=== PATIENT | female | born 1960 | race Caucasian/White ===

== ENCOUNTER 2017-06-21 21:32 | Emergency (ER) | payer MEDICARE, OTHER ==
[2017-06-21 21:55] VITALS: RESP 18; TEMP 97.4
--- NOTE | 2017-06-21 23:06 | XR ---
EXAM: XR Chest, 2 Views CLINICAL HISTORY: Reason: Pain TECHNIQUE: Frontal and lateral views of the chest. COMPARISON: No relevant prior studies available. FINDINGS: Lungs: Unremarkable. No consolidation. Pleural space: Unremarkable. No pneumothorax. Heart: Unremarkable. No cardiomegaly. Mediastinum: Unremarkable. Bones/joints: Mild degenerative disc changes. IMPRESSION: No acute radiographic findings.
[2017-06-21 23:39] VITALS: BP 136/77; PULSE 72
--- NOTE | 2017-06-21 23:48 | ED ---
ENT HPI - General Chief complaint: ENT Stated complaint: Coughing up blood Time Seen by Provider: 06/21/17 22:36 Source: patient, RN notes reviewed, old records reviewed Mode of arrival: ambulatory Limitations: no limitations - History of Present Illness Initial comments: Keiko is a 56-year-old female that presents with a chief complaint of three days when she wakes up she has one episode of coughing up a bloody tinged sputum. She reports the only kind of this occurs is directly after she wakes up. She reports that she was having an episode of crying prior to arrival, I noticed that she had a bloody nose.This has subsided at this time. Patient states that she's had no other history a bloody nose is, headaches, vision changes. Reports noOther episodes of coughing. Denies any shortness of breath. She was a smoker many years ago but has quit. - Related Data Home Medications Medication Instructions Recorded Confirmed Atorvastatin [Lipitor] 10 mg PO HS 09/18/15 09/18/15 Levothyroxine Sodium [Synthroid] 25 mcg PO DAILY 09/18/15 09/18/15 Lisinopril [Zestril] 5 mg PO DAILY 09/18/15 09/18/15 Meclizine [Antivert] 12.5 mg PO DAILY PRN 09/18/15 09/18/15 Propranolol [Inderal] 10 mg PO BID 09/18/15 09/18/15 clonazePAM [KlonoPIN] 1 mg PO HS 09/22/15 09/22/15 Previous Rx's Medication Instructions Recorded Ciprofloxacin HCl [Cipro] 500 mg PO BID #7 tab 09/22/15 Topiramate [Topamax] 25 mg PO BID #60 tab 09/22/15 buPROPion XL [Wellbutrin XL] 150 mg PO DAILY #30 tab.er.24h 09/22/15 Sodium Chloride [Saline Mist] 1 spray EA NOSTRIL DAILY #1 bottle 06/22/17 Allergies Allergy/AdvReac Type Severity Reaction Status Date / Time No Known Allergies Allergy Verified 09/19/15 16:28 Review of Systems ROS Statement: Those systems with pertinent positive or pertinent negative responses have been documented in the HPI. ROS Other: All systems not noted in ROS Statement are negative. Past Medical History Past Medical History: Asthma Additional Past Medical History / Comment(s): History of wearing a Holter monitor 5-6 years ago for racing heart, Fibromyalgia, Rheumatoid Arthritis History of Any Multi-Drug Resistant Organisms: None Reported Past Surgical History: No Surgical Hx Reported Past Anesthesia/Blood Transfusion Reactions: No Reported Reaction Past Psychological History: Anxiety, Bipolar, Depression Smoking Status: Never smoker Past Alcohol Use History: None Reported Past Drug Use History: None Reported - Past Family History Father Family Medical History: Coronary Artery Disease (CAD) Mother Additional Family Medical History / Comment(s): Mother at the age of 2929 years old from alcholism. General Exam - General Exam Comments Initial Comments: Well appearing alert and oriented 56-year-old female. No distress. Limitations: no limitations General appearance: alert, in no apparent distress Head exam: Present: atraumatic, normocephalic, normal inspection Eye exam: Present: normal appearance, PERRL, EOMI. Absent: scleral icterus, conjunctival injection, periorbital swelling ENT exam: Present: normal exam, mucous membranes moist, other (erythematous friable nasal turbinates. ) Neck exam: Present: normal inspection. Absent: tenderness, meningismus, lymphadenopathy Respiratory exam: Present: normal lung sounds bilaterally. Absent: respiratory distress, wheezes, rales, rhonchi, stridor Cardiovascular Exam: Present: regular rate, normal rhythm, normal heart sounds. Absent: systolic murmur, diastolic murmur, rubs, gallop, clicks GI/Abdominal exam: Present: soft, normal bowel sounds. Absent: distended, tenderness, guarding, rebound, rigid Extremities exam: Present: normal inspection, full ROM, normal capillary refill. Absent: tenderness, pedal edema, joint swelling, calf tenderness Back exam: Present: normal inspection Neurological exam: Present: alert, oriented X3, CN II-XII intact Psychiatric exam: Present: normal affect, normal mood Skin exam: Present: warm, dry, intact, normal color. Absent: rash Course Vital Signs 06/21/17 06/21/17 21:52 23:38 Temperature 97.4 F L Pulse Rate 82 72 Respiratory 18 18 Rate Blood Pressure 144/81 136/77 O2 Sat by Pulse 98 96 Oximetry Medical Decision Making - Medical Decision Making Patient is a 56-year-old female that arrives with a few days of one episode of blatant sputum when she coughs. She has no for their coughing episodes. She does have your a feminist nasal turbinates. They appear very friable and dry. Patient was offered a chest x-ray to rule out any plural valleys. The check she was rude and negative. I discuss this with Dr. Almonte. He recommended a skullActually draw any pineal abnormalities. The school x-ray shows evidence of a.m. normal area in the right frontal region. Patient has no tenderness there. Discussed these findings with her and that she could follow up with her primary care provider. I'm not concerned about this at this time. I think it is an incidental finding. Patient informed that her bloody nose is likely related to dry nasal mucosa. DiscussedFollow up with primary care provider. Discussed using a humidifier. Discussed if she said she may see in your nose and throat specialist. - Radiology Data Radiology results: report reviewed Just ask her to be a negative for any acute process. Spell x-ray shows evidence of an debbi matter where the right frontal lobe. No tenderness is noted there. Disposition Clinical Impression: Nasal dryness Disposition: HOME SELF-CARE Condition: Good Instructions: Sinusitis (ED) Additional Instructions: Keep air humidified in home. you should take the nasal spray and use it as directed. Follow-up with primary care provider. Return to emergency department if any alarming signs symptoms occur. Prescriptions: Sodium Chloride [Saline Mist] 1 spray EA NOSTRIL DAILY #1 bottle Referrals: Lucero Saenz MD [Primary Care Provider] - 1-2 days Time of Disposition: 00:23
--- NOTE | 2017-06-22 00:04 | XR ---
EXAM: XR Skull, 1, 2 or 3 Views CLINICAL HISTORY: Reason: Pain TECHNIQUE: Frontal and/or lateral views of the skull. COMPARISON: No relevant prior studies available. FINDINGS: Bones/joints: No acute fracture. Small right frontal bone lucency, possibly an arachnoid granulation though nonspecific. Sinuses: Unremarkable. No air-fluid levels. Soft tissues: Unremarkable. No radiopaque foreign body. IMPRESSION: No visualized fracture. Subcentimeter right frontal bone lucency, nonspecific. Query arachnoid granulation. Correlate for any point tenderness or history of malignancy.
--- NOTE | 2017-06-24 02:06 | CDI ---
Documentation Clarification OP Dear ALVARO Holt: Please do addendum to ED report for HPI , Physical exam and MDM. Thank you, Akila Francisco Liver Trimmer If you have any question, Please contact cable installation manager at [phone] [facility]
== END 2017-06-22 00:32 | disposition home or self-care (01) ==
LOC: EC 21:32
DX: J34.89 Other specified disorders of nose and nasal sinuses (principal); Z79.899 Other long term (current) drug therapy
CPT/HCPCS: 70260; 71020; 99284

== ENCOUNTER → 2017-08-29 | Outpatient (CLI) | payer MEDICARE, OTHER ==
--- NOTE | 2017-08-29 14:40 | XR ---
EXAMINATION TYPE: XR calcaneus 2V LT DATE OF EXAM: 08/29/2017 COMPARISON: NONE HISTORY: Pain in left foot TECHNIQUE: Two-view left calcaneus FINDINGS: Achilles tendon and plantar calcaneal heel spurs are present. No acute fractures are eviden t. Boehler's angle is preserved. Soft tissues appear unremarkable. IMPRESSION: 1. Calcaneal heel spurs left calcaneus
--- NOTE | 2017-08-29 14:43 | XR ---
EXAMINATION TYPE: XR foot complete LT DATE OF EXAM: 08/29/2017 COMPARISON: NONE HISTORY: Left foot pain TECHNIQUE: Three-view left foot FINDINGS: No acute fractures. Joint spaces are preserved. Plantar and Achilles tendon calcaneal heel spurs are present. Plantar arch is preserved. IMPRESSION: 1. No acute osseous abnormality. Follow-up exam can be performed 7-10 days from acute trauma for con tinued pain.
== END | disposition home or self-care (01) ==
LOC: RADXRMAIN 14:12
PROVIDERS: ATTEND Nurse Practitioner
DX: M77.32 Calcaneal spur, left foot (principal)

== ENCOUNTER 2017-12-17 12:19 | Emergency (ER) | payer MEDICARE, OTHER ==
[2017-12-17] MEDS ORDERED: methylPREDNISolone SOD SUCCI 125 MG/2 ML VIAL IV STA (12:31)
[2017-12-17] MEDS ORDERED: FAMOTIDINE 20 MG/2 ML VIAL IV STA (12:31)
[2017-12-17] MEDS ORDERED: diphenhydrAMINE 50 MG/ML 1 ML VIAL IVP STA (12:31)
--- NOTE | 2017-12-17 12:34 | ED ---
General Adult HPI - General Chief complaint: Allergic Reaction Stated complaint: Allergic Reaction Time Seen by Provider: 12/17/17 12:26 Source: patient, EMS, RN notes reviewed Mode of arrival: EMS Limitations: no limitations - History of Present Illness Initial comments: Patient is a 57-year-old female presented to the emergency room today by EMS, the chief complaint of ALLERGIC reaction. Patient does admit that she took niacin for the first time today. She admits that approximately 45 minutes later began feeling very flushed and hot to her face and into her arms. She states she did call 911. EMS arrived started an IV and gave 25 mg Benadryl IV. Patient states that she is feeling much better at this time. She states that still feeling a little flushed in the face. Denies any shortness of breath or difficulty swallowing. She denies any other complaints. Patient denies any recent shortness of breath, chest pain, back pain, abdominal pain, nausea or vomiting, numbness or tingling, dysuria or hematuria, constipation or diarrhea, headaches or visual changes, or any other complaints. - Related Data Home Medications Medication Instructions Recorded Confirmed Levothyroxine Sodium [Synthroid] 25 mcg PO DAILY 09/18/15 12/17/17 Propranolol [Inderal] 10 mg PO BID 09/18/15 12/17/17 Escitalopram [Lexapro] 5 mg PO DAILY 12/17/17 12/17/17 Simvastatin [Zocor] 10 mg PO HS 12/17/17 12/17/17 clonazePAM [KlonoPIN] 1 mg PO BID@0900,1300 12/17/17 12/17/17 Previous Rx's Medication Instructions Recorded buPROPion XL [Wellbutrin XL] 150 mg PO DAILY #30 tab.er.24h 09/22/15 diphenhydrAMINE [Benadryl] 1 - 2 tab PO Q6HR PRN #30 capsule 12/17/17 predniSONE 60 mg PO DAILY 5 Days tab 12/17/17 Allergies Allergy/AdvReac Type Severity Reaction Status Date / Time niacin Allergy Swelling Verified 12/17/17 12:51 Review of Systems ROS Statement: Those systems with pertinent positive or pertinent negative responses have been documented in the HPI. ROS Other: All systems not noted in ROS Statement are negative. Past Medical History Past Medical History: Asthma Additional Past Medical History / Comment(s): History of wearing a Holter monitor 5-6 years ago for racing heart, Fibromyalgia, Rheumatoid Arthritis History of Any Multi-Drug Resistant Organisms: None Reported Past Surgical History: No Surgical Hx Reported Past Anesthesia/Blood Transfusion Reactions: No Reported Reaction Past Psychological History: Anxiety, Bipolar, Depression Smoking Status: Never smoker Past Alcohol Use History: None Reported Past Drug Use History: None Reported - Past Family History Father Family Medical History: Coronary Artery Disease (CAD) Mother Additional Family Medical History / Comment(s): Mother at the age of 2929 years old from alcholism. General Exam - General Exam Comments Initial Comments: General: The patient is awake and alert, in no distress, and does not appear acutely ill. Eye: Pupils are equal, round and reactive to light, extra-ocular movements are intact. No nystagmus. There is normal conjunctiva bilaterally. No signs of icterus. Ears, nose, mouth and throat: There are moist mucous membranes and no oral lesions. Neck: The neck is supple, there is no tenderness or JVD. Cardiovascular: There is a regular rate and rhythm. No murmur, rub or gallop is appreciated. Respiratory: Lungs are clear to auscultation, respirations are non-labored, breath sounds are equal. No wheezes, stridor, rales, or rhonchi. Musculoskeletal: Normal ROM, no tenderness. Strength 5/5. Sensation intact. Pulses equal bilaterally 2+. Neurological: A&O x 3. CN II-XII intact, There are no obvious motor or sensory deficits. Coordination appears grossly intact. Speech is normal. Skin: Diffuse red raised rash to both anterior posterior trunk and upper extremities. Areas do mariluz. Psychiatric: Cooperative, appropriate mood & affect, normal judgment. Limitations: no limitations Course Vital Signs 12/17/17 12/17/17 12:22 14:06 Temperature 97.9 F Pulse Rate 77 65 Respiratory 18 18 Rate Blood Pressure 138/62 106/67 O2 Sat by Pulse 96 98 Oximetry Medical Decision Making - Medical Decision Making Patient reexamined at this time shows no signs of stress persist feeling much better at this time. No rash. No feeling of burning sensation. Patient states feels well. Patient's vital stable. Will be discharged home advised continue Benadryl one to 2 tabs every 6 hours. Also be given a prescription for steroids. Advised return for new concerns. Disposition Clinical Impression: Allergic reaction Disposition: HOME SELF-CARE Condition: Good Instructions: General Allergic Reaction (ED) Additional Instructions: Please use medication as discussed. Please follow-up with family doctor in the next 2 days of symptoms have not improved. Please return to emergency room if the symptoms increase or worsen or for any other concerns. Prescriptions: diphenhydrAMINE [Benadryl] 1 - 2 tab PO Q6HR PRN #30 capsule PRN Reason: Allergic Reaction predniSONE 60 mg PO DAILY 5 Days tab Is patient prescribed a controlled substance at d/c from ED?: No Referrals: None,Stated [REFERRING] - 1-2 days Time of Disposition: 14:21
[2017-12-17 14:47] VITALS: BP 113/56; PULSE 71; RESP 20; TEMP 98.1
== END 2017-12-17 14:47 | disposition home or self-care (01) ==
LOC: EC 12:19
DX: R21 Rash and other nonspecific skin eruption (principal); T46.7X5A Adverse effect of peripheral vasodilators, initial encounter; F32.9 Major depressive disorder, single episode, unspecified; F41.9 Anxiety disorder, unspecified; Z79.899 Other long term (current) drug therapy; Z88.8 Allergy status to other drugs, medicaments and biological substances; Z86.79 Personal history of other diseases of the circulatory system
CPT/HCPCS: 99284; 96374; 96375 ×2; J1200; J2930

== ENCOUNTER 2019-01-12 15:47 | Emergency (ER) | payer MEDICARE, OTHER ==
[2019-01-12] MEDS ORDERED: ASPIRIN 81 MG PO STA (16:24)
--- NOTE | 2019-01-12 16:28 | ED ---
General Adult HPI - General Chief complaint: Shortness of Breath Stated complaint: Nausea/sob Time Seen by Provider: 01/12/19 16:14 Source: patient Mode of arrival: ambulatory Limitations: no limitations - History of Present Illness Initial comments: Patient is a 58-year-old female with a history of high blood pressure and asthma who presents with a chief complaint of feeling weak over the last 7 days after her lisinopril dose was increased. The patient states that today she was not E with a friend and states that she had sharp pain in her left arm less about 2-3 seconds and states she has been increasingly short of breath. Identify an inciting incident. There are no aggravating or alleviating factors. Timing is constant. - Related Data Home Medications Medication Instructions Recorded Confirmed Levothyroxine Sodium [Synthroid] 25 mcg PO DAILY 09/18/15 01/12/19 Propranolol [Inderal] 10 mg PO BID 09/18/15 01/12/19 Escitalopram [Lexapro] 5 mg PO DAILY 12/17/17 01/12/19 Simvastatin [Zocor] 10 mg PO HS 12/17/17 01/12/19 Cholecalciferol (Vitamin D3) 4,000 unit PO MOFR 01/12/19 01/12/19 [Vitamin D3] Cyanocobalamin (Vitamin B-12) 1,000 mcg PO MOFR 01/12/19 01/12/19 [Vitamin B-12] Lisinopril 20 mg PO DAILY 01/12/19 01/12/19 Lisinopril [Zestril] 10 mg PO HS 01/12/19 01/12/19 Allergies Allergy/AdvReac Type Severity Reaction Status Date / Time niacin Allergy Swelling Verified 01/12/19 16:48 Review of Systems ROS Statement: Those systems with pertinent positive or pertinent negative responses have been documented in the HPI. ROS Other: All systems not noted in ROS Statement are negative. Cardiovascular: Reports: palpitations, dyspnea on exertion Gastrointestinal: Reports: nausea Past Medical History Past Medical History: Asthma Additional Past Medical History / Comment(s): History of wearing a Holter monitor 5-6 years ago for racing heart, Fibromyalgia, Rheumatoid Arthritis History of Any Multi-Drug Resistant Organisms: None Reported Past Surgical History: No Surgical Hx Reported Past Anesthesia/Blood Transfusion Reactions: No Reported Reaction Past Psychological History: Anxiety, Bipolar, Depression Smoking Status: Never smoker Past Alcohol Use History: None Reported Past Drug Use History: None Reported - Past Family History Father Family Medical History: Coronary Artery Disease (CAD) Mother Additional Family Medical History / Comment(s): Mother at the age of 2929 years old from alcholism. General Exam Limitations: no limitations General appearance: alert, in no apparent distress Head exam: Present: atraumatic, normocephalic Eye exam: Present: normal appearance ENT exam: Present: normal exam Neck exam: Present: normal inspection Respiratory exam: Present: normal lung sounds bilaterally. Absent: respiratory distress, wheezes Cardiovascular Exam: Present: regular rate, normal rhythm, systolic murmur GI/Abdominal exam: Present: soft. Absent: distended, tenderness Rectal exam: Present: deferred Extremities exam: Present: normal inspection, pedal edema Back exam: Present: normal inspection Neurological exam: Present: alert, oriented X3 Psychiatric exam: Present: normal affect, normal mood Skin exam: Present: warm, dry, intact Course Vital Signs 01/12/19 01/12/19 01/12/19 15:50 16:00 17:50 Temperature 98.6 F Pulse Rate 90 86 Respiratory 16 18 18 Rate Blood Pressure 119/90 117/78 O2 Sat by Pulse 96 98 Oximetry Medical Decision Making - Medical Decision Making Patient presents with chief complaint of shortness of breath and episodes of nausea and chest pain. On initial evaluation, vitals are stable, patient is in no acute distress. EKG performed at 1554 shows sinus rhythm with a rate of 84 bpm, seconds within normal limits, no acute signs of ischemia. Patient to be evaluated basically including cardiac enzymes, d-dimer, chest x-ray. She was given aspirin. EKG performed at 1554 shows normal sinus rhythm with a rate of 84 bpm, seconds within normal limits, no acute ischemia present. 7:43 PM Andrae. A repeat troponin however initial set of labs is unremarkable. D- dimer is negative. On reevaluation, patient states she feels better. There may be an aspect of anxiety though this is likely symptomatology resulting from the recent increase of her blood pressure medications. Her blood pressure remained stable acceptable in the exam room. 8:24 PM Repeat troponin is negative. At this time, patient stable for discharge. She was instructed to follow up with primary care cardiology 2 days, return to the ED if symptoms worsen or change. - Lab Data Result diagrams: 01/12/19 16:06 01/12/19 16:06 Lab Results 01/12/19 01/12/19 01/12/19 Range/Units 16:06 16:06 16:06 WBC 6.7 (3.8-10.6) k/uL RBC 4.70 (3.80-5.40) m/uL Hgb 13.7 (11.4-16.0) gm/dL Hct 39.7 (34.0-46.0) % MCV 84.4 (80.0-100.0) fL MCH 29.1 (25.0-35.0) pg MCHC 34.5 (31.0-37.0) g/dL RDW 14.5 (11.5-15.5) % Plt Count 225 (150-450) k/uL Neutrophils % 70 % Lymphocytes % 21 % Monocytes % 5 % Eosinophils % 2 % Basophils % 1 % Neutrophils # 4.7 (1.3-7.7) k/uL Lymphocytes # 1.4 (1.0-4.8) k/uL Monocytes # 0.3 (0-1.0) k/uL Eosinophils # 0.1 (0-0.7) k/uL Basophils # 0.0 (0-0.2) k/uL D-Dimer 0.32 (<0.60) mg/L FEU Sodium 140 (137-145) mmol/L Potassium 3.9 (3.5-5.1) mmol/L Chloride 107 (98-107) mmol/L Carbon Dioxide 23 (22-30) mmol/L Anion Gap 10 mmol/L BUN 21 H (7-17) mg/dL Creatinine 1.02 (0.52-1.04) mg/dL Est GFR (CKD-EPI)AfAm 70 (>60 ml/min/1.73 sqM) Est GFR (CKD-EPI)NonAf 61 (>60 ml/min/1.73 sqM) Glucose 125 H (74-99) mg/dL Calcium 9.6 (8.4-10.2) mg/dL Troponin I (0.000-0.034) ng/mL NT-Pro-B Natriuret Pep pg/mL 01/12/19 01/12/19 01/12/19 Range/Units 16:06 16:06 19:20 WBC (3.8-10.6) k/uL RBC (3.80-5.40) m/uL Hgb (11.4-16.0) gm/dL Hct (34.0-46.0) % MCV (80.0-100.0) fL MCH (25.0-35.0) pg MCHC (31.0-37.0) g/dL RDW (11.5-15.5) % Plt Count (150-450) k/uL Neutrophils % % Lymphocytes % % Monocytes % % Eosinophils % % Basophils % % Neutrophils # (1.3-7.7) k/uL Lymphocytes # (1.0-4.8) k/uL Monocytes # (0-1.0) k/uL Eosinophils # (0-0.7) k/uL Basophils # (0-0.2) k/uL D-Dimer (<0.60) mg/L FEU Sodium (137-145) mmol/L Potassium (3.5-5.1) mmol/L Chloride (98-107) mmol/L Carbon Dioxide (22-30) mmol/L Anion Gap mmol/L BUN (7-17) mg/dL Creatinine (0.52-1.04) mg/dL Est GFR (CKD-EPI)AfAm (>60 ml/min/1.73 sqM) Est GFR (CKD-EPI)NonAf (>60 ml/min/1.73 sqM) Glucose (74-99) mg/dL Calcium (8.4-10.2) mg/dL Troponin I <0.012 <0.012 (0.000-0.034) ng/mL NT-Pro-B Natriuret Pep 24 pg/mL Disposition Clinical Impression: SOB (shortness of breath), Nausea Disposition: HOME SELF-CARE Condition: Good Instructions (If sedation given, give patient instructions): Hypertension (ED) Is patient prescribed a controlled substance at d/c from ED?: No Referrals: [facility] [Primary Care Provider] - 1-2 days
[2019-01-12 16:46] VITALS: RESP 18
[2019-01-12 16:59] LABS: Basophils % (A) 1 %; Eosinophils # (A) 0.1 k/uL (0-0.7); Eosinophils % (A) 2 %; HCT 39.7 % (34.0-46.0); HGB 13.7 gm/dL (11.4-16.0); Lymphocytes # (A) 1.4 k/uL (1.0-4.8); Lymphocytes % (A) 21 %; MCH 29.1 pg (25.0-35.0); MCHC 34.5 g/dL (31.0-37.0); MCV 84.4 fL (80.0-100.0); Mean Platelet Volume 7.6; Monocytes # (A) 0.3 k/uL (0-1.0); Monocytes % (A) 5 %; Neutrophils # (A) 4.7 k/uL (1.3-7.7); Neutrophils % (A) 70 %; Platelet Count 225 k/uL (150-450); RDW 14.5 % (11.5-15.5); WBC 6.7 k/uL (3.8-10.6)
[2019-01-12 17:01] LABS: Calcium 9.6 mg/dL (8.4-10.2); Potassium 3.9 mmol/L (3.5-5.1)
--- NOTE | 2019-01-12 18:02 | XR ---
EXAMINATION: XR chest 2V DATE AND TIME: 01/12/2019 4:48 PM CLINICAL INDICATION: [facility]; Pain TECHNIQUE: Departmental protocol COMPARISON: 06/21/2017 FINDINGS: The lungs are clear. The pleural spaces are negative. The cardiac silhouette is not enlarged. The remainder of the mediastinal silhouette is unremarkable. The skeletal structures and soft tissues are negative for acute findings. IMPRESSION: NO ACUTE PROCESS.
[2019-01-12 20:46] VITALS: BP 131/85; PULSE 76; TEMP 97.9
== END 2019-01-12 20:46 | disposition home or self-care (01) ==
LOC: EC 15:47
DX: R06.02 Shortness of breath (principal); R11.0 Nausea; R53.1 Weakness; F41.9 Anxiety disorder, unspecified; F32.9 Major depressive disorder, single episode, unspecified; Z87.09 Personal history of other diseases of the respiratory system; Z79.890 Hormone replacement therapy; Z79.899 Other long term (current) drug therapy; Z88.8 Allergy status to other drugs, medicaments and biological substances
CPT/HCPCS: 36415; 71046; 80048; 83880; 84484; 85025; 85379; 99284; 99285

== ENCOUNTER 2019-05-16 13:16 | Emergency (ER) | payer MEDICARE, OTHER ==
[2019-05-16 13:22] VITALS: RESP 20
[2019-05-16 13:55] VITALS: TEMP 98.5
--- NOTE | 2019-05-16 14:02 | ED ---
Dizziness HPI - General Chief Complaint: Dizziness Stated Complaint: weakness, nausea Time Seen by Provider: 05/16/19 13:40 Source: patient, RN notes reviewed Mode of arrival: ambulatory Limitations: no limitations - History of Present Illness Initial Comments: [id number] female who presents with complaints of dizziness heartburn-like discomfort up in her neck and going intermittently for last 2 days she was almost like he gets an adrenaline haskins. She has had associated weakness with it. She has described the pain going into her neck is burning and mild in nature. No overt palpitations she has no prior history of heart disease that she does have a bicuspid heart valve she states. No symptoms of heartburn at this time no symptoms of weakness at this time MD Complaint: dizziness, other - Related Data Home Medications Medication Instructions Recorded Confirmed Levothyroxine Sodium [Synthroid] 25 mcg PO DAILY 09/18/15 05/16/19 Cholecalciferol (Vitamin D3) 4,000 unit PO DAILY PRN 01/12/19 05/16/19 [Vitamin D3] Cyanocobalamin (Vitamin B-12) 1,000 mcg PO DAILY PRN 01/12/19 05/16/19 [Vitamin B-12] Lisinopril 20 mg PO DAILY 01/12/19 05/16/19 Albuterol Sulfate [Albuterol 1 - 2 puff PO RT-Q4H PRN 05/16/19 05/16/19 Sulfate Hfa] Atorvastatin [Lipitor] 20 mg PO HS 05/16/19 05/16/19 Escitalopram [Lexapro] 5 mg PO DAILY 05/16/19 05/16/19 Fluticasone Nasal [place] [Flonase 1 spr EA NOSTRIL DAILY PRN 05/16/19 05/16/19 Nasal [place]] Hydrochlorothiazide [Hydrodiuril] 12.5 mg PO DAILY 05/16/19 05/16/19 Lisinopril [Zestril] 10 mg PO HS 05/16/19 05/16/19 Meclizine [Antivert] 12.5 mg PO DAILY PRN 05/16/19 05/16/19 Propranolol [Inderal] 20 mg PO BID 05/16/19 05/16/19 hydrOXYzine HCL 10 mg PO BID PRN 05/16/19 05/16/19 Previous Rx's Medication Instructions Recorded Nitroglycerin Sl Tabs [Nitrostat] 0.4 mg SUBLINGUAL Q5M PRN #25 tab 05/16/19 Allergies Allergy/AdvReac Type Severity Reaction Status Date / Time niacin Allergy Swelling Verified 05/16/19 14:43 Review of Systems ROS Statement: Those systems with pertinent positive or pertinent negative responses have been documented in the HPI. ROS Other: All systems not noted in ROS Statement are negative. Past Medical History Past Medical History: Asthma Additional Past Medical History / Comment(s): History of wearing a Holter monitor 5-6 years ago for racing heart, Fibromyalgia, Rheumatoid Arthritis History of Any Multi-Drug Resistant Organisms: None Reported Past Surgical History: No Surgical Hx Reported Past Anesthesia/Blood Transfusion Reactions: No Reported Reaction Past Psychological History: Anxiety, Bipolar, Depression Smoking Status: Never smoker Past Alcohol Use History: None Reported Past Drug Use History: None Reported - Past Family History Father Family Medical History: Coronary Artery Disease (CAD) Mother Additional Family Medical History / Comment(s): Mother at the age of 2929 years old from alcholism. General Exam - General Exam Comments Initial Comments: This is a well-developed well-nourished awake alert oriented 3 female Limitations: no limitations General appearance: alert, in no apparent distress Head exam: Present: atraumatic, normocephalic, normal inspection Eye exam: Present: normal appearance, PERRL, EOMI. Absent: scleral icterus, conjunctival injection, periorbital swelling ENT exam: Present: normal exam, mucous membranes moist Neck exam: Present: normal inspection. Absent: tenderness, meningismus, lymphadenopathy Respiratory exam: Present: normal lung sounds bilaterally. Absent: respiratory distress, wheezes, rales, rhonchi, stridor Cardiovascular Exam: Present: regular rate, normal rhythm, normal heart sounds. Absent: systolic murmur, diastolic murmur, rubs, gallop, clicks GI/Abdominal exam: Present: soft, normal bowel sounds. Absent: distended, tenderness, guarding, rebound, rigid Extremities exam: Present: normal inspection, full ROM, normal capillary refill. Absent: tenderness, pedal edema, joint swelling, calf tenderness Back exam: Present: normal inspection Neurological exam: Present: alert, oriented X3, CN II-XII intact Psychiatric exam: Present: normal affect, normal mood Skin exam: Present: warm, dry, intact, normal color. Absent: rash Course Vital Signs 05/16/19 05/16/19 05/16/19 13:18 13:53 13:55 Temperature 97.6 F 98.5 F Pulse Rate 97 73 Respiratory 20 20 Rate Blood Pressure 136/82 141/68 141/68 O2 Sat by Pulse 97 97 96 Oximetry 05/16/19 05/16/19 05/16/19 14:00 14:30 15:00 Temperature Pulse Rate 72 66 70 Respiratory 7 L 7 L 26 H Rate Blood Pressure 141/68 127/67 111/74 O2 Sat by Pulse 97 97 96 Oximetry 05/16/19 05/16/19 15:30 15:41 Temperature Pulse Rate 71 Respiratory 14 20 Rate Blood Pressure 126/70 O2 Sat by Pulse 96 Oximetry EKG Findings - EKG Results: EKG: interpreted by CANELO, sinus rhythm (Normal sinus rhythm of 83. We'll 150 QRS duration 78 QTC 370/434 st-t wave changes) Medical Decision Making - Medical Decision Making I did have a long discussion with the patient regarding the findings patient does states she's had similar episodes in the past she relates to possible reflux. We did discuss the options including admission for inpatient evaluation versus outpatient patient does not want to be admitted she was discharged with instruction take 81 mg aspirin daily she'll be given a prescription for nitroglycerin she will follow-up with her doctor return when necessary - Lab Data Result diagrams: 05/16/19 13:42 05/16/19 13:42 Lab Results 05/16/19 05/16/19 05/16/19 Range/Units 13:42 13:42 13:42 WBC 6.3 (3.8-10.6) k/uL RBC 4.71 (3.80-5.40) m/uL Hgb 14.3 (11.4-16.0) gm/dL Hct 40.6 (34.0-46.0) % MCV 86.1 (80.0-100.0) fL MCH 30.3 (25.0-35.0) pg MCHC 35.2 (31.0-37.0) g/dL RDW 12.7 (11.5-15.5) % Plt Count 240 (150-450) k/uL Neutrophils % 64 % Lymphocytes % 22 % Monocytes % 8 % Eosinophils % 3 % Basophils % 0 % Neutrophils # 4.0 (1.3-7.7) k/uL Lymphocytes # 1.4 (1.0-4.8) k/uL Monocytes # 0.5 (0-1.0) k/uL Eosinophils # 0.2 (0-0.7) k/uL Basophils # 0.0 (0-0.2) k/uL PT 9.6 (9.0-12.0) sec INR 0.9 (<1.2) Sodium 143 (137-145) mmol/L Potassium 4.0 (3.5-5.1) mmol/L Chloride 108 H (98-107) mmol/L Carbon Dioxide 26 (22-30) mmol/L Anion Gap 9 mmol/L BUN 15 (7-17) mg/dL Creatinine 0.87 (0.52-1.04) mg/dL Est GFR (CKD-EPI)AfAm 85 (>60 ml/min/1.73 sqM) Est GFR (CKD-EPI)NonAf 73 (>60 ml/min/1.73 sqM) Glucose 125 H (74-99) mg/dL Calcium 9.8 (8.4-10.2) mg/dL Magnesium 2.0 (1.6-2.3) mg/dL Total Bilirubin 0.7 (0.2-1.3) mg/dL AST 32 (14-36) U/L ALT 46 (9-52) U/L Alkaline Phosphatase 85 (38-126) U/L Creatine Kinase 174 H (30-135) U/L Troponin I (0.000-0.034) ng/mL Total Protein 7.0 (6.3-8.2) g/dL Albumin 4.3 (3.5-5.0) g/dL Lipase 136 (23-300) U/L Urine Color Urine Appearance (Clear) Urine pH (5.0-8.0) Ur Specific [place] (1.001-1.035) Urine Protein (Negative) Urine Glucose (UA) (Negative) Urine Ketones (Negative) Urine Blood (Negative) Urine Nitrite (Negative) Urine Bilirubin (Negative) Urine Urobilinogen (<2.0) mg/dL Ur Leukocyte Esterase (Negative) 05/16/19 05/16/19 Range/Units 13:42 13:42 WBC (3.8-10.6) k/uL RBC (3.80-5.40) m/uL Hgb (11.4-16.0) gm/dL Hct (34.0-46.0) % MCV (80.0-100.0) fL MCH (25.0-35.0) pg MCHC (31.0-37.0) g/dL RDW (11.5-15.5) % Plt Count (150-450) k/uL Neutrophils % % Lymphocytes % % Monocytes % % Eosinophils % % Basophils % % Neutrophils # (1.3-7.7) k/uL Lymphocytes # (1.0-4.8) k/uL Monocytes # (0-1.0) k/uL Eosinophils # (0-0.7) k/uL Basophils # (0-0.2) k/uL PT (9.0-12.0) sec INR (<1.2) Sodium (137-145) mmol/L Potassium (3.5-5.1) mmol/L Chloride (98-107) mmol/L Carbon Dioxide (22-30) mmol/L Anion Gap mmol/L BUN (7-17) mg/dL Creatinine (0.52-1.04) mg/dL Est GFR (CKD-EPI)AfAm (>60 ml/min/1.73 sqM) Est GFR (CKD-EPI)NonAf (>60 ml/min/1.73 sqM) Glucose (74-99) mg/dL Calcium (8.4-10.2) mg/dL Magnesium (1.6-2.3) mg/dL Total Bilirubin (0.2-1.3) mg/dL AST (14-36) U/L ALT (9-52) U/L Alkaline Phosphatase (38-126) U/L Creatine Kinase (30-135) U/L Troponin I <0.012 (0.000-0.034) ng/mL Total Protein (6.3-8.2) g/dL Albumin (3.5-5.0) g/dL Lipase (23-300) U/L Urine Color Light Yellow Urine Appearance Clear (Clear) Urine pH 6.5 (5.0-8.0) Ur Specific [place] 1.002 (1.001-1.035) Urine Protein Negative (Negative) Urine Glucose (UA) Negative (Negative) Urine Ketones Negative (Negative) Urine Blood Negative (Negative) Urine Nitrite Negative (Negative) Urine Bilirubin Negative (Negative) Urine Urobilinogen <2.0 (<2.0) mg/dL Ur Leukocyte Esterase Negative (Negative) - Radiology Data Radiology results: report reviewed (I did review the imaging and report no acute findings.), image reviewed Disposition Clinical Impression: Atypical chest pain Disposition: HOME SELF-CARE Condition: Good Instructions (If sedation given, give patient instructions): Noncardiac Chest Pain (ED), Chest Pain (ED) Prescriptions: Nitroglycerin Sl Tabs [Nitrostat] 0.4 mg SUBLINGUAL Q5M PRN #25 tab PRN Reason: Chest Pain Is patient prescribed a controlled substance at d/c from ED?: No Referrals: [facility] [Primary Care Provider] - 1-2 days
[2019-05-16 14:03] LABS: Appearance,Urine Clear (Clear); Bilirubin,Urine Negative (Negative); Blood,Urine Negative (Negative); Color,Urine Light Yellow; Glucose,Urine (UA) Negative (Negative); Ketones,Urine Negative (Negative); Leukocyte Esterase,Urine Negative (Negative); Nitrite,Urine Negative (Negative); PH, Urine 6.5 (5.0-8.0); Protein,Urine Negative (Negative); Specific Gravity,Urine 1.002 (1.001-1.035); Urobilinogen,Urine <2.0 mg/dL (<2.0)
[2019-05-16 14:07] LABS: Basophils % (A) 0 %; Eosinophils # (A) 0.2 k/uL (0-0.7); Eosinophils % (A) 3 %; HCT 40.6 % (34.0-46.0); HGB 14.3 gm/dL (11.4-16.0); Lymphocytes # (A) 1.4 k/uL (1.0-4.8); Lymphocytes % (A) 22 %; MCH 30.3 pg (25.0-35.0); MCHC 35.2 g/dL (31.0-37.0); MCV 86.1 fL (80.0-100.0); Mean Platelet Volume 6.2; Monocytes # (A) 0.5 k/uL (0-1.0); Monocytes % (A) 8 %; Neutrophils % (A) 64 %; Platelet Count 240 k/uL (150-450); RBC 4.71 m/uL (3.80-5.40); RDW 12.7 % (11.5-15.5); WBC 6.3 k/uL (3.8-10.6)
[2019-05-16 14:10] LABS: INR 0.9 (<1.2); Prothrombin Time 9.6 sec (9.0-12.0)
[2019-05-16 14:12] LABS: Albumin 4.3 g/dL (3.5-5.0); Calcium 9.8 mg/dL (8.4-10.2); Total Bilirubin 0.7 mg/dL (0.2-1.3)
--- NOTE | 2019-05-16 15:06 | XR ---
EXAMINATION TYPE: XR chest 2V DATE OF EXAM: 05/16/2019 COMPARISON: 01/12/2019 HISTORY: Dizziness and nausea TECHNIQUE: Frontal and lateral views of the chest are obtained. FINDINGS: Heart and mediastinum are normal. Lungs are clear. Diaphragm is normal. Bony thorax appear s normal. IMPRESSION: Normal chest. No change.
[2019-05-16 15:53] VITALS: BP 121/74; PULSE 69
== END 2019-05-16 15:59 | disposition home or self-care (01) ==
LOC: EC 13:16
DX: R07.89 Other chest pain (principal); R42 Dizziness and giddiness; R53.1 Weakness; R11.0 Nausea; R12 Heartburn; J45.909 Unspecified asthma, uncomplicated; F41.9 Anxiety disorder, unspecified; F32.9 Major depressive disorder, single episode, unspecified; Z82.49 Family history of ischemic heart disease and other diseases of the circulatory system; Z79.890 Hormone replacement therapy; Z79.899 Other long term (current) drug therapy; Z88.8 Allergy status to other drugs, medicaments and biological substances
CPT/HCPCS: 36415; 71046; 80053; 81003; 82550; 83690; 83735; 84484; 85025; 85610; 93005; 99284

== ENCOUNTER 2019-05-17 15:19 | Emergency (ER) | payer MEDICARE, OTHER ==
[2019-05-17] MEDS ORDERED: ONDANSETRON 4 MG/2 ML VIAL IVP STA (16:14)
[2019-05-17] MEDS ORDERED: KETOROLAC 30 MG/ML 1 ML VIAL IVP STA (16:14)
[2019-05-17] MEDS ORDERED: PANTOPRAZOLE 40 MG/10 ML VIAL IVP STA (16:14)
[2019-05-17] MEDS ORDERED: SODIUM CHLORIDE 0.9% 1,000 ML IV STA (16:14)
[2019-05-17 16:28] LABS: Basophils # (A) 0.1 k/uL (0-0.2); Basophils % (A) 1 %; Eosinophils # (A) 0.1 k/uL (0-0.7); Eosinophils % (A) 2 %; HCT 39.1 % (34.0-46.0); HGB 13.4 gm/dL (11.4-16.0); Lymphocytes # (A) 1.1 k/uL (1.0-4.8); Lymphocytes % (A) 19 %; MCH 29.7 pg (25.0-35.0); MCHC 34.3 g/dL (31.0-37.0); MCV 86.5 fL (80.0-100.0); Mean Platelet Volume 6.9; Monocytes # (A) 0.4 k/uL (0-1.0); Monocytes % (A) 6 %; Neutrophils # (A) 4.2 k/uL (1.3-7.7); Neutrophils % (A) 71 %; Platelet Count 206 k/uL (150-450); RBC 4.52 m/uL (3.80-5.40); RDW 12.6 % (11.5-15.5)
--- NOTE | 2019-05-17 16:32 | ED ---
General Adult HPI - General Chief complaint: Dizziness Stated complaint: Nausea, headache,weakness Time Seen by Provider: 05/17/19 15:50 Source: patient Mode of arrival: ambulatory Limitations: no limitations - History of Present Illness Initial comments: Patient is a 58-year-old female presenting to the emergency Department with complaints of a headache as well as nausea for the past 3 days. Patient was seen in the ER yesterday for same complaint. Patient states she felt okay yesterday after leaving the ER then rested and went to bed. Patient states she woke up this morning feeling the same and has not been able to eat much. Patient decided to come back to the ER for reassessment. Patient states her headache has not changed. She also describes a nausea feeling that starts in her lower abdomen and "rushes up through her throat". Patient denies any fever, chills, belly pain, vomiting, diarrhea. Patient states she does have a history of anxiety and about a year ago was taking off her anxiety medications and states she really feels like that is part of her problem is not being on her medicines. Patient states she does follow up with [facility] and they are discussing different medication options. Patient has no other complaints at this time. Upon arrival to the ER, vital signs are stable. - Related Data Home Medications Medication Instructions Recorded Confirmed Levothyroxine Sodium [Synthroid] 25 mcg PO DAILY 09/18/15 05/16/19 Cholecalciferol (Vitamin D3) 4,000 unit PO DAILY PRN 01/12/19 05/16/19 [Vitamin D3] Cyanocobalamin (Vitamin B-12) 1,000 mcg PO DAILY PRN 01/12/19 05/16/19 [Vitamin B-12] Lisinopril 20 mg PO DAILY 01/12/19 05/16/19 Albuterol Sulfate [Albuterol 1 - 2 puff PO RT-Q4H PRN 05/16/19 05/16/19 Sulfate Hfa] Atorvastatin [Lipitor] 20 mg PO HS 05/16/19 05/16/19 Escitalopram [Lexapro] 5 mg PO DAILY 05/16/19 05/16/19 Fluticasone Nasal [place] [Flonase 1 spr EA NOSTRIL DAILY PRN 05/16/19 05/16/19 Nasal [place]] Hydrochlorothiazide [Hydrodiuril] 12.5 mg PO DAILY 05/16/19 05/16/19 Lisinopril [Zestril] 10 mg PO HS 05/16/19 05/16/19 Meclizine [Antivert] 12.5 mg PO DAILY PRN 05/16/19 05/16/19 Propranolol [Inderal] 20 mg PO BID 05/16/19 05/16/19 hydrOXYzine HCL 10 mg PO BID PRN 05/16/19 05/16/19 Previous Rx's Medication Instructions Recorded Nitroglycerin Sl Tabs [Nitrostat] 0.4 mg SUBLINGUAL Q5M PRN #25 tab 05/16/19 Ketorolac [Toradol] 10 mg PO Q8HR #15 tab 05/17/19 Ondansetron Odt [Zofran Odt] 4 mg PO Q8HR PRN #10 tab 05/17/19 Allergies Allergy/AdvReac Type Severity Reaction Status Date / Time niacin Allergy Swelling Verified 05/17/19 15:21 Review of Systems ROS Statement: Those systems with pertinent positive or pertinent negative responses have been documented in the HPI. ROS Other: All systems not noted in ROS Statement are negative. Past Medical History Past Medical History: Asthma Additional Past Medical History / Comment(s): History of wearing a Holter monitor 5-6 years ago for racing heart, Fibromyalgia, Rheumatoid Arthritis History of Any Multi-Drug Resistant Organisms: None Reported Past Surgical History: No Surgical Hx Reported Past Anesthesia/Blood Transfusion Reactions: No Reported Reaction Past Psychological History: Anxiety, Bipolar, Depression Smoking Status: Never smoker Past Alcohol Use History: None Reported Past Drug Use History: None Reported - Past Family History Father Family Medical History: Coronary Artery Disease (CAD) Mother Additional Family Medical History / Comment(s): Mother at the age of 2929 years old from alcholism. General Exam - General Exam Comments Initial Comments: GENERAL: Well-appearing, well-nourished and in no acute distress. HEAD: Atraumatic, normocephalic. EYES: Pupils equal round and reactive to light, extraocular movements intact, sclera anicteric, conjunctiva are normal. ENT: TMs normal, nares patent, oropharynx clear without exudates. Moist mucous membranes. NECK: Normal range of motion, supple without lymphadenopathy or JVD. LUNGS: Breath sounds clear to auscultation bilaterally and equal. No wheezes rales or rhonchi. HEART: Regular rate and rhythm without murmurs, rubs or gallops. ABDOMEN: Soft, nontender, normoactive bowel sounds. No guarding, no rebound. No masses appreciated. : Deferred EXTREMITIES: Normal range of motion, no pitting or edema. No clubbing or cyanosis. NEUROLOGICAL: Cranial nerves II through XII grossly intact. Normal speech, normal gait. PSYCH: Normal mood, normal affect. SKIN: Warm, Dry, normal turgor, no rashes or lesions noted. Limitations: no limitations Course Vital Signs 05/17/19 05/17/19 05/17/19 15:21 17:25 18:53 Temperature 98 F 98.4 F Pulse Rate 95 70 69 Respiratory 18 16 18 Rate Blood Pressure 156/86 122/69 125/69 O2 Sat by Pulse 97 98 97 Oximetry EKG Findings - EKG Comments: EKG Findings:: Ventricular rate 86, SD interval 146, QTC 440. Normal sinus rhyt hm. Low voltage QRS. No acute ST-T segment changes. Compared to last EKG on 05/16/19. Medical Decision Making - Medical Decision Making Patient is a 58-year-old female presenting with a headache as well as nausea for the past 3 days. Patient was the ER yesterday for same complaint. Patient's vital signs are stable upon arrival. Lab work shows no acute abnormalities. Troponin is normal today. EKG shows no acute changes and similar to yesterday's EKG. Patient was given fluids as well as Protonix, Zofran, Toradol and reports improvement in her symptoms. It was discussed with patient that her symptoms may be related to having her ongoing anxiety issues. Patient agrees with this. Patient needs to follow up with her PCP or psych nurse at [facility]. Patient is stable for discharge at this time and she is in agreement with this plan of care. Patient will be discharged with Toradol as well as Zofran for her headache and nausea. Return parameters were discussed with the patient she verbalized understanding. Case discussed with Dr. Mahajan. - Lab Data Result diagrams: 05/17/19 16:20 05/17/19 16:20 Lab Results 05/17/19 05/17/19 05/17/19 Range/Units 16:20 16:20 16:20 WBC 6.0 (3.8-10.6) k/uL RBC 4.52 (3.80-5.40) m/uL Hgb 13.4 (11.4-16.0) gm/dL Hct 39.1 (34.0-46.0) % MCV 86.5 (80.0-100.0) fL MCH 29.7 (25.0-35.0) pg MCHC 34.3 (31.0-37.0) g/dL RDW 12.6 (11.5-15.5) % Plt Count 206 (150-450) k/uL Neutrophils % 71 % Lymphocytes % 19 % Monocytes % 6 % Eosinophils % 2 % Basophils % 1 % Neutrophils # 4.2 (1.3-7.7) k/uL Lymphocytes # 1.1 (1.0-4.8) k/uL Monocytes # 0.4 (0-1.0) k/uL Eosinophils # 0.1 (0-0.7) k/uL Basophils # 0.1 (0-0.2) k/uL Sodium 143 (137-145) mmol/L Potassium 3.9 (3.5-5.1) mmol/L Chloride 109 H (98-107) mmol/L Carbon Dioxide 27 (22-30) mmol/L Anion Gap 7 mmol/L BUN 13 (7-17) mg/dL Creatinine 1.02 (0.52-1.04) mg/dL Est GFR (CKD-EPI)AfAm 70 (>60 ml/min/1.73 sqM) Est GFR (CKD-EPI)NonAf 61 (>60 ml/min/1.73 sqM) Glucose 114 H (74-99) mg/dL Calcium 9.1 (8.4-10.2) mg/dL Total Bilirubin 0.5 (0.2-1.3) mg/dL AST 31 (14-36) U/L ALT 44 (9-52) U/L Alkaline Phosphatase 99 (38-126) U/L Troponin I <0.012 (0.000-0.034) ng/mL Total Protein 6.3 (6.3-8.2) g/dL Albumin 3.7 (3.5-5.0) g/dL Disposition Clinical Impression: Acute anxiety, Headache, Nausea Disposition: HOME SELF-CARE Condition: Stable Instructions (If sedation given, give patient instructions): Acute Headache (ED) Additional Instructions: Please return to the Emergency Department if symptoms worsen or any other concerns. Follow-up with your PCP in the next 1- 3 days. May take anti-inflammatory and Zofran as needed for symptom relief. Prescriptions: Ketorolac [Toradol] 10 mg PO Q8HR #15 tab Ondansetron Odt [Zofran Odt] 4 mg PO Q8HR PRN #10 tab PRN Reason: Nausea Is patient prescribed a controlled substance at d/c from ED?: No [facility]errals: [facility] [Primary Care Provider] - 1-2 days
[2019-05-17 16:37] LABS: Albumin 3.7 g/dL (3.5-5.0); Calcium 9.1 mg/dL (8.4-10.2); Potassium 3.9 mmol/L (3.5-5.1); Total Bilirubin 0.5 mg/dL (0.2-1.3); Total Protein 6.3 g/dL (6.3-8.2)
[2019-05-17 18:56] VITALS: BP 125/69; PULSE 69; RESP 18; TEMP 98.4
== END 2019-05-17 18:53 | disposition home or self-care (01) ==
LOC: EC 15:19
DX: F41.9 Anxiety disorder, unspecified (principal); R51 Headache; R11.0 Nausea; R42 Dizziness and giddiness; F32.9 Major depressive disorder, single episode, unspecified; J45.909 Unspecified asthma, uncomplicated; Z79.899 Other long term (current) drug therapy; Z88.8 Allergy status to other drugs, medicaments and biological substances
CPT/HCPCS: 36415; 93005; 80053; 84484; 85025; 99284; 96374; 96375 ×2; 96361; J2405; J1885; C9113

== ENCOUNTER 2019-05-25 10:30 | Emergency (ER) | payer MEDICARE, OTHER ==
[2019-05-25 10:37] VITALS: TEMP 97.9
[2019-05-25] MEDS ORDERED: ASPIRIN 81 MG PO STA (10:57)
[2019-05-25] MEDS ORDERED: SODIUM CHLORIDE 0.9% 1,000 ML IV STA (10:57)
--- NOTE | 2019-05-25 11:21 | ED ---
Recheck HPI - General Chief Complaint: Recheck/Abnormal Lab/Rx Stated Complaint: Hypertension Time Seen by Provider: 05/25/19 10:36 Source: EMS, RN notes reviewed, old records reviewed Mode of arrival: EMS Limitations: no limitations - History of Present Illness Initial Comments: 58-year-old female presents emergency department today with chief complaint of hypertensive episode, and feeling unwell this morning. She states that she will took her blood pressure this morning when she wasn't feeling quite right. She reports is elevated 190/100. She waited 5 minutes and recheck her blood pressureat that time 250/100. Patient reports that made her anxious and she came to the emergency department. Today prior to this she started feel some tingling and other sensations in her left arm and fingers. Patient states that she's had no specific chest pain. Upon arriving here she states that she is feeling more relaxed, complains of no chest pain or arm pain. She does report that she has a history of anxiety and has been off of her Klonopin for the past year. - Related Data Home Medications Medication Instructions Recorded Confirmed Levothyroxine Sodium [Synthroid] 25 mcg PO DAILY 09/18/15 05/16/19 Cholecalciferol (Vitamin D3) 4,000 unit PO DAILY PRN 01/12/19 05/16/19 [Vitamin D3] Cyanocobalamin (Vitamin B-12) 1,000 mcg PO DAILY PRN 01/12/19 05/16/19 [Vitamin B-12] Lisinopril 20 mg PO DAILY 01/12/19 05/16/19 Albuterol Sulfate [Albuterol 1 - 2 puff PO RT-Q4H PRN 05/16/19 05/16/19 Sulfate Hfa] Atorvastatin [Lipitor] 20 mg PO HS 05/16/19 05/16/19 Escitalopram [Lexapro] 5 mg PO DAILY 05/16/19 05/16/19 Fluticasone Nasal [place] [Flonase 1 spr EA NOSTRIL DAILY PRN 05/16/19 05/16/19 Nasal [place]] Hydrochlorothiazide [Hydrodiuril] 12.5 mg PO DAILY 05/16/19 05/16/19 Lisinopril [Zestril] 10 mg PO HS 05/16/19 05/16/19 Meclizine [Antivert] 12.5 mg PO DAILY PRN 05/16/19 05/16/19 Propranolol [Inderal] 20 mg PO BID 05/16/19 05/16/19 hydrOXYzine HCL 10 mg PO BID PRN 05/16/19 05/16/19 Previous Rx's Medication Instructions Recorded Nitroglycerin Sl Tabs [Nitrostat] 0.4 mg SUBLINGUAL Q5M PRN #25 tab 05/16/19 Ketorolac [Toradol] 10 mg PO Q8HR #15 tab 05/17/19 Ondansetron Odt [Zofran Odt] 4 mg PO Q8HR PRN #10 tab 05/17/19 LORazepam [Ativan] 0.5 mg PO BID 3 Days #6 tab 05/25/19 Allergies Allergy/AdvReac Type Severity Reaction Status Date / Time niacin Allergy Swelling Verified 05/25/19 20:28 Review of Systems ROS Statement: Those systems with pertinent positive or pertinent negative responses have been documented in the HPI. ROS Other: All systems not noted in ROS Statement are negative. Past Medical History Past Medical History: Asthma Additional Past Medical History / Comment(s): History of wearing a Holter monitor 5-6 years ago for racing heart, Fibromyalgia, Rheumatoid Arthritis History of Any Multi-Drug Resistant Organisms: None Reported Past Surgical History: No Surgical Hx Reported Past Anesthesia/Blood Transfusion Reactions: No Reported Reaction Past Psychological History: Anxiety, Bipolar, Depression Smoking Status: Never smoker Past Alcohol Use History: None Reported Past Drug Use History: None Reported - Past Family History Father Family Medical History: Coronary Artery Disease (CAD) Mother Additional Family Medical History / Comment(s): Mother at the age of 2929 years old from alcholism. General Exam Limitations: no limitations General appearance: alert, in no apparent distress Head exam: Present: atraumatic, normocephalic, normal inspection Eye exam: Present: normal appearance, PERRL, EOMI. Absent: scleral icterus, conjunctival injection, periorbital swelling ENT exam: Present: normal exam, mucous membranes moist Neck exam: Present: normal inspection. Absent: tenderness, meningismus, l ymphadenopathy Respiratory exam: Present: normal lung sounds bilaterally. Absent: respiratory distress, wheezes, rales, rhonchi, stridor Cardiovascular Exam: Present: regular rate, normal rhythm, normal heart sounds. Absent: systolic murmur, diastolic murmur, rubs, gallop, clicks GI/Abdominal exam: Present: soft, normal bowel sounds. Absent: distended, tenderness, guarding, rebound, rigid Extremities exam: Present: normal inspection, full ROM, normal capillary refill. Absent: tenderness, pedal edema, joint swelling, calf tenderness Back exam: Present: normal inspection Neurological exam: Present: alert, oriented X3, CN II-XII intact Psychiatric exam: Present: normal affect, normal mood Skin exam: Present: warm, dry, intact, normal color. Absent: rash Course Vital Signs 05/25/19 05/25/19 05/25/19 10:33 11:20 13:49 Temperature 97.9 F Pulse Rate 82 70 69 Respiratory 16 18 18 Rate Blood Pressure 153/89 134/70 136/81 O2 Sat by Pulse 97 97 98 Oximetry Medical Decision Making - Medical Decision Making is reevaluated after laboratory obtained. Troponin EKG were negative for any acute process. Blood pressure normalized upon arrival here last one was 13 0/68. She is quite fixated on anxiety and believes that her symptoms related to this. She denies any chest pain headaches or other complaints at this time. I discussed with the Patient for short prescription for anxiety medicine and she can follow-up with her primary care doctor. Patient is agreeable to treatment plan will comply. Return parameters were discussed. Discussed case with Dr. Vergara. - Lab Data Result diagrams: 05/25/19 11:21 05/25/19 11:21 Lab Results 05/25/19 05/25/19 05/25/19 Range/Units 11:21 11:21 11:21 WBC 5.5 (3.8-10.6) k/uL RBC 4.78 (3.80-5.40) m/uL Hgb 13.9 (11.4-16.0) gm/dL Hct 41.7 (34.0-46.0) % MCV 87.3 (80.0-100.0) fL MCH 29.1 (25.0-35.0) pg MCHC 33.3 (31.0-37.0) g/dL RDW 12.8 (11.5-15.5) % Plt Count 194 (150-450) k/uL Neutrophils % 72 % Lymphocytes % 16 % Monocytes % 6 % Eosinophils % 3 % Basophils % 1 % Neutrophils # 4.0 (1.3-7.7) k/uL Lymphocytes # 0.9 L (1.0-4.8) k/uL Monocytes # 0.3 (0-1.0) k/uL Eosinophils # 0.2 (0-0.7) k/uL Basophils # 0.1 (0-0.2) k/uL PT (9.0-12.0) sec INR (<1.2) APTT (22.0-30.0) sec Sodium 141 (137-145) mmol/L Potassium 4.3 (3.5-5.1) mmol/L Chloride 107 (98-107) mmol/L Carbon Dioxide 26 (22-30) mmol/L Anion Gap 8 mmol/L BUN 15 (7-17) mg/dL Creatinine 0.92 (0.52-1.04) mg/dL Est GFR (CKD-EPI)AfAm 79 (>60 ml/min/1.73 sqM) Est GFR (CKD-EPI)NonAf 69 (>60 ml/min/1.73 sqM) Glucose 108 H (74-99) mg/dL Calcium 9.2 (8.4-10.2) mg/dL Magnesium 2.2 (1.6-2.3) mg/dL Total Bilirubin 0.7 (0.2-1.3) mg/dL AST 21 (14-36) U/L ALT 40 (9-52) U/L Alkaline Phosphatase 79 (38-126) U/L Troponin I (0.000-0.034) ng/mL NT-Pro-B Natriuret Pep 38 pg/mL Total Protein 6.7 (6.3-8.2) g/dL Albumin 4.0 (3.5-5.0) g/dL Amylase 53 (30-110) U/L Lipase 89 (23-300) U/L 05/25/19 05/25/19 Range/Units 11:21 11:21 WBC (3.8-10.6) k/uL RBC (3.80-5.40) m/uL Hgb (11.4-16.0) gm/dL Hct (34.0-46.0) % MCV (80.0-100.0) fL MCH (25.0-35.0) pg MCHC (31.0-37.0) g/dL RDW (11.5-15.5) % Plt Count (150-450) k/uL Neutrophils % % Lymphocytes % % Monocytes % % Eosinophils % % Basophils % % Neutrophils # (1.3-7.7) k/uL Lymphocytes # (1.0-4.8) k/uL Monocytes # (0-1.0) k/uL Eosinophils # (0-0.7) k/uL Basophils # (0-0.2) k/uL PT 9.7 (9.0-12.0) sec INR 0.9 (<1.2) APTT 23.7 (22.0-30.0) sec Sodium (137-145) mmol/L Potassium (3.5-5.1) mmol/L Chloride (98-107) mmol/L Carbon Dioxide (22-30) mmol/L Anion Gap mmol/L BUN (7-17) mg/dL Creatinine (0.52-1.04) mg/dL Est GFR (CKD-EPI)AfAm (>60 ml/min/1.73 sqM) Est GFR (CKD-EPI)NonAf (>60 ml/min/1.73 sqM) Glucose (74-99) mg/dL Calcium (8.4-10.2) mg/dL Magnesium (1.6-2.3) mg/dL Total Bilirubin (0.2-1.3) mg/dL AST (14-36) U/L ALT (9-52) U/L Alkaline Phosphatase (38-126) U/L Troponin I <0.012 (0.000-0.034) ng/mL NT-Pro-B Natriuret Pep pg/mL Total Protein (6.3-8.2) g/dL Albumin (3.5-5.0) g/dL Amylase (30-110) U/L Lipase (23-300) U/L - Radiology Data Radiology results: report reviewed No evidence of acute cardiopulmonary disease on Chest x-ray. Disposition Clinical Impression: Acute anxiety, Episode of hypertension Disposition: HOME SELF-CARE Condition: Good Instructions (If sedation given, give patient instructions): Generalized Anxiety Disorder (ED) Additional Instructions: Patient has a follow-up with her primary care doctor. Take anxiety medicine as prescribed. Return to the emergency department if any alarming signs or symptoms occur. Prescriptions: LORazepam [Ativan] 0.5 mg PO BID 3 Days #6 tab Is patient prescribed a controlled substance at d/c from ED?: No Referrals: [facility] [Primary Care Provider] - 1-2 days Time of Disposition: 13:21
[2019-05-25 11:39] LABS: Basophils # (A) 0.1 k/uL (0-0.2); Basophils % (A) 1 %; Eosinophils # (A) 0.2 k/uL (0-0.7); Eosinophils % (A) 3 %; HCT 41.7 % (34.0-46.0); HGB 13.9 gm/dL (11.4-16.0); Lymphocytes # (A) 0.9 k/uL (1.0-4.8); Lymphocytes % (A) 16 %; MCH 29.1 pg (25.0-35.0); MCHC 33.3 g/dL (31.0-37.0); MCV 87.3 fL (80.0-100.0); Monocytes # (A) 0.3 k/uL (0-1.0); Monocytes % (A) 6 %; Neutrophils % (A) 72 %; Platelet Count 194 k/uL (150-450); RBC 4.78 m/uL (3.80-5.40); RDW 12.8 % (11.5-15.5); WBC 5.5 k/uL (3.8-10.6)
[2019-05-25 11:43] VITALS: RESP 18
[2019-05-25 11:49] LABS: Calcium 9.2 mg/dL (8.4-10.2); INR 0.9 (<1.2); Magnesium 2.2 mg/dL (1.6-2.3); Partial Thromboplastin Time 23.7 sec (22.0-30.0); Potassium 4.3 mmol/L (3.5-5.1); Prothrombin Time 9.7 sec (9.0-12.0); Total Bilirubin 0.7 mg/dL (0.2-1.3); Total Protein 6.7 g/dL (6.3-8.2)
--- NOTE | 2019-05-25 12:05 | XR ---
EXAMINATION TYPE: XR chest 2V DATE OF EXAM: 05/25/2019 COMPARISON: 05/16/2019 HISTORY: Shortness of breath TECHNIQUE: Frontal and lateral views of the chest are obtained. FINDINGS: Scattered senescent parenchymal changes noted. No evidence for infiltrate. No evidence for atelectasis. Heart size is stable. Mediastinal structures are stable and grossly unremarkable. No evidence for hilar prominence. Degenerative changes dorsal spine. IMPRESSION: 1. No evidence for acute pulmonary disease.
[2019-05-25 13:54] VITALS: BP 136/81; PULSE 69
== END 2019-05-25 13:40 | disposition home or self-care (01) ==
LOC: EC 10:30
DX: I10 Essential (primary) hypertension (principal); F41.9 Anxiety disorder, unspecified; R20.2 Paresthesia of skin; J45.909 Unspecified asthma, uncomplicated; F32.9 Major depressive disorder, single episode, unspecified; Z79.890 Hormone replacement therapy; Z79.899 Other long term (current) drug therapy; Z88.8 Allergy status to other drugs, medicaments and biological substances; Z53.8 Procedure and treatment not carried out for other reasons
CPT/HCPCS: 36415; 71046; 80053; 82150; 83690; 83735; 83880; 84484; 85025; 85610; 85730; 93005; 96360; 99284

== ENCOUNTER 2019-05-25 20:22 | Emergency (ER) | payer MEDICARE, OTHER ==
[2019-05-25 20:26] VITALS: RESP 18; TEMP 98.4
[2019-05-25] MEDS ORDERED: clonazePAM 1 MG TAB PO STA (20:57)
--- NOTE | 2019-05-25 20:59 | ED ---
General Adult HPI - General Chief complaint: Anxiety Stated complaint: Anxiety Time Seen by Provider: 05/25/19 20:35 Source: patient, EMS, RN notes reviewed Mode of arrival: EMS Limitations: no limitations - History of Present Illness Initial comments: Patient is a pleasant 58-year-old female sent to the emergency Department with complaints of anxiety. Patient was taken off her Klonopin around a year ago and hasn't been right since that time. Patient states she checked her blood pressure the last few days and has been running high. Blood pressure at home today was 188/90. Patient states there is a mild headache and lightheadedness. Headache is mild and was not sudden onset. It aches not severe. No isolated area of weakness. No confusion. - Related Data Home Medications Medication Instructions Recorded Confirmed Levothyroxine Sodium [Synthroid] 25 mcg PO DAILY 09/18/15 05/25/19 Cholecalciferol (Vitamin D3) 4,000 unit PO DAILY PRN 01/12/19 05/25/19 [Vitamin D3] Cyanocobalamin (Vitamin B-12) 1,000 mcg PO DAILY PRN 01/12/19 05/25/19 [Vitamin B-12] Lisinopril 20 mg PO DAILY 01/12/19 05/25/19 Albuterol Sulfate [Albuterol 1 - 2 puff PO RT-Q4H PRN 05/16/19 05/25/19 Sulfate Hfa] Atorvastatin [Lipitor] 20 mg PO HS 05/16/19 05/25/19 Escitalopram [Lexapro] 5 mg PO DAILY 05/16/19 05/25/19 Fluticasone Nasal [place] [Flonase 1 spr EA NOSTRIL DAILY PRN 05/16/19 05/25/19 Nasal [place]] Lisinopril [Zestril] 10 mg PO HS 05/16/19 05/25/19 Meclizine [Antivert] 12.5 mg PO DAILY PRN 05/16/19 05/25/19 Propranolol [Inderal] 20 mg PO BID 05/16/19 05/25/19 Allergies Allergy/AdvReac Type Severity Reaction Status Date / Time niacin Allergy Swelling Verified 05/25/19 20:28 Review of Systems ROS Statement: Those systems with pertinent positive or pertinent negative responses have been documented in the HPI. ROS Other: All systems not noted in ROS Statement are negative. Constitutional: Denies: fever Eyes: Denies: eye pain ENT: Denies: ear pain Respiratory: Denies: cough Cardiovascular: Denies: chest pain Endocrine: Denies: fatigue Gastrointestinal: Denies: abdominal pain Genitourinary: Denies: dysuria Musculoskeletal: Denies: back pain Skin: Denies: rash Neurological: Reports: as per HPI. Denies: weakness, numbness, paresthesias, confusion, abnormal gait Past Medical History Past Medical History: Asthma Additional Past Medical History / Comment(s): History of wearing a Holter monitor 5-6 years ago for racing heart, Fibromyalgia, Rheumatoid Arthritis History of Any Multi-Drug Resistant Organisms: None Reported Past Surgical History: No Surgical Hx Reported Past Anesthesia/Blood Transfusion Reactions: No Reported Reaction Past Psychological History: Anxiety, Bipolar, Depression Smoking Status: Never smoker Past Alcohol Use History: None Reported Past Drug Use History: None Reported - Past Family History Father Family Medical History: Coronary Artery Disease (CAD) Mother Additional Family Medical History / Comment(s): Mother at the age of 2929 years old from alcholism. General Exam Limitations: no limitations General appearance: alert, in no apparent distress Head exam: Present: atraumatic, normocephalic Eye exam: Present: normal appearance, PERRL, EOMI. Absent: nystagmus ENT exam: Present: normal oropharynx Neck exam: Present: normal inspection Respiratory exam: Present: normal lung sounds bilaterally Cardiovascular Exam: Present: regular rate, normal rhythm GI/Abdominal exam: Present: soft. Absent: tenderness Extremities exam: Present: normal inspection Neurological exam: Present: alert, CN II-XII intact. Absent: motor sensory deficit Expanded Neurological exam: Present: protecting the airway Speech: Present: fluid speech Cranial nerves: EOM's Intact: Normal Motor strength exam: RUE: 5, LUE: 5, RLE: 5, LLE: 5 Eye Response: (4) open spontaneously Motor Response: (6) obeys commands Verbal Response: (5) oriented Psychiatric exam: Present: normal affect, normal mood Skin exam: Present: normal color Course Vital Signs 05/25/19 05/25/19 20:22 21:35 Temperature 98.4 F Pulse Rate 86 75 Respiratory 18 18 Rate Blood Pressure 166/85 135/71 O2 Sat by Pulse 98 97 Oximetry Medical Decision Making - Medical Decision Making He should reevaluated and resting comfortably in bed, symptom-free. Blood pressure improved. Patient updated on results and need for follow-up. Disposition Clinical Impression: Acute anxiety, Hypertension Disposition: HOME SELF-CARE Condition: Stable Instructions (If sedation given, give patient instructions): Generalized Anxiety Disorder (ED), Hypertension (ED) Additional Instructions: Please follow-up with primary care physician in the next day or 2 for recheck. Return for uncontrolled blood pressure, severe headaches, weakness or confusion, worsening symptoms or other concerns. Is patient prescribed a controlled substance at d/c from ED?: No Referrals: [facility] [Primary Care Provider] - 1-2 days Kaleigh Ferraro MD [STAFF PHYSICIAN] - 1-2 days Time of Disposition: 21:53
[2019-05-25 21:37] VITALS: BP 135/71; PULSE 75
== END 2019-05-25 22:01 | disposition home or self-care (01) ==
LOC: EC 20:22
DX: F41.9 Anxiety disorder, unspecified (principal); I10 Essential (primary) hypertension; R51 Headache; R42 Dizziness and giddiness; J45.909 Unspecified asthma, uncomplicated; F31.9 Bipolar disorder, unspecified; Z88.8 Allergy status to other drugs, medicaments and biological substances; Z79.890 Hormone replacement therapy; Z79.899 Other long term (current) drug therapy; Z82.49 Family history of ischemic heart disease and other diseases of the circulatory system
CPT/HCPCS: 99284

== ENCOUNTER 2019-05-27 10:12 | Emergency (ER) | payer MEDICARE, OTHER ==
[2019-05-27 10:23] VITALS: RESP 18
[2019-05-27] MEDS ORDERED: LORazepam 2 MG/ML INJ IV STA (10:41)
--- NOTE | 2019-05-27 10:45 | ED ---
General Adult HPI - General Chief complaint: Recheck/Abnormal Lab/Rx Stated complaint: HYPERTENSION Time Seen by Provider: 05/27/19 10:20 Source: patient, RN notes reviewed, old records reviewed Mode of arrival: wheelchair Limitations: no limitations - History of Present Illness Initial comments: This is a 58-year-old female with past medical history significant for hypertension and high cholesterol. Patient comes into the emergency department today complaining that she felt nauseated and a little dizzy this morning. Patient states she took her blood Medication at about 9:30 and about a half an hour after she took her blood pressure because she is feeling little dizzy and her blood pressure was 197/113. Patient states this set off her anxiety and she became very nervous so she decided come to the emergency department. Patient denies any chest pain palpitations or recent fever chills or cough. Patient denies any abdominal pain patient denies nausea vomiting. Patient denies any diaphoretic episodes. Patient states she started feeling better now that she's here but she believes is because her anxiety is a lot less. Patient states she was taken off Klonopin about a year ago and because of that she has a lot more episodes of anxiety. - Related Data Home Medications Medication Instructions Recorded Confirmed Levothyroxine Sodium [Synthroid] 25 mcg PO DAILY 09/18/15 05/25/19 Cholecalciferol (Vitamin D3) 4,000 unit PO DAILY PRN 01/12/19 05/25/19 [Vitamin D3] Cyanocobalamin (Vitamin B-12) 1,000 mcg PO DAILY PRN 01/12/19 05/25/19 [Vitamin B-12] Lisinopril 20 mg PO DAILY 01/12/19 05/25/19 Albuterol Sulfate [Albuterol 1 - 2 puff PO RT-Q4H PRN 05/16/19 05/25/19 Sulfate Hfa] Atorvastatin [Lipitor] 20 mg PO HS 05/16/19 05/25/19 Escitalopram [Lexapro] 5 mg PO DAILY 05/16/19 05/25/19 Fluticasone Nasal [place] [Flonase 1 spr EA NOSTRIL DAILY PRN 05/16/19 05/25/19 Nasal [place]] Lisinopril [Zestril] 10 mg PO HS 05/16/19 05/25/19 Meclizine [Antivert] 12.5 mg PO DAILY PRN 05/16/19 05/25/19 Propranolol [Inderal] 20 mg PO BID 05/16/19 05/25/19 Allergies Allergy/AdvReac Type Severity Reaction Status Date / Time niacin Allergy Swelling Verified 05/27/19 10:17 Review of Systems ROS Statement: Those systems with pertinent positive or pertinent negative responses have been documented in the HPI. ROS Other: All systems not noted in ROS Statement are negative. Past Medical History Past Medical History: Asthma Additional Past Medical History / Comment(s): History of wearing a Holter monitor 5-6 years ago for racing heart, Fibromyalgia, Rheumatoid Arthritis History of Any Multi-Drug Resistant Organisms: None Reported Past Surgical History: No Surgical Hx Reported Past Anesthesia/Blood Transfusion Reactions: No Reported Reaction Past Psychological History: Anxiety, Bipolar, Depression Smoking Status: Never smoker Past Alcohol Use History: None Reported Past Drug Use History: None Reported - Past Family History Father Family Medical History: Coronary Artery Disease (CAD) Mother Additional Family Medical History / Comment(s): Mother at the age of 2929 years old from alcholism. General Exam - General Exam Comments Initial Comments: GENERAL: Patient is well-developed and well-nourished. Patient is nontoxic and well- hydrated and is in mild distress. ENT: Neck is soft and supple. No significant lymphadenopathy is noted. Oropharynx is clear. Moist mucous membranes. Neck has full range of motion without eliciting any pain. EYES: The sclera were anicteric and conjunctiva were pink and moist. Extraocular movements were intact and pupils were equal round and reactive to light. Eyelids were unremarkable. PULMONARY: Unlabored respirations. Good breath sounds bilaterally. No audible rales rhonchi or wheezing was noted. CARDIOVASCULAR: There is a regular rate and rhythm without any murmurs gallops or rubs. ABDOMEN: Soft and nontender with normal bowel sounds. No palpable organomegaly was noted. There is no palpable pulsatile mass. SKIN: Skin is clear with no lesions or rashes and otherwise unremarkable. NEUROLOGIC: Patient is alert and oriented x3. Cranial nerves II through XII are grossly intact. Motor and sensory are also intact. Normal speech, volume and content. Symmetrical smile. MUSCULOSKELETAL: Normal extremities with adequate strength and full range of motion. No lower extremity swelling or edema. No calf tenderness. LYMPHATICS: No significant lymphadenopathy is noted PSYCHIATRIC: Normal psychiatric evaluation. Limitations: no limitations Course Vital Signs 05/27/19 05/27/19 05/27/19 10:17 11:10 12:12 Temperature 97.8 F Pulse Rate 78 70 70 Respiratory 18 18 Rate Blood Pressure 161/86 138/71 114/59 O2 Sat by Pulse 98 97 Oximetry Medical Decision Making - Medical Decision Making EKG shows a normal sinus rhythm at 63 bpm MN interval is 152 QRS 74 QT interval 394 QTC is 43. Patient's EKG shows no ST segment elevation or depression. I came back into the room to reevaluate the patient is patient was asymptomatic and her blood pressure was normal Chest x-ray shows no acute abnormality. Patient blood pressure came down without any medication intervention in the emergency department. I will back into reevaluate the patient on 2 different occasions and both times she was asymptomatic. - Lab Data Result diagrams: 05/27/19 11:05 05/27/19 11:05 Lab Results 05/27/19 05/27/19 05/27/19 Range/Units 11:05 11:05 11:05 WBC 6.1 (3.8-10.6) k/uL RBC 4.77 (3.80-5.40) m/uL Hgb 13.9 (11.4-16.0) gm/dL Hct 41.8 (34.0-46.0) % MCV 87.7 (80.0-100.0) fL MCH 29.2 (25.0-35.0) pg MCHC 33.3 (31.0-37.0) g/dL RDW 12.9 (11.5-15.5) % Plt Count 193 (150-450) k/uL Neutrophils % 67 % Lymphocytes % 21 % Monocytes % 7 % Eosinophils % 3 % Basophils % 0 % Neutrophils # 4.1 (1.3-7.7) k/uL Lymphocytes # 1.3 (1.0-4.8) k/uL Monocytes # 0.4 (0-1.0) k/uL Eosinophils # 0.2 (0-0.7) k/uL Basophils # 0.0 (0-0.2) k/uL PT 9.8 (9.0-12.0) sec INR 0.9 (<1.2) APTT 23.9 (22.0-30.0) sec Sodium 141 (137-145) mmol/L Potassium 4.3 (3.5-5.1) mmol/L Chloride 108 H (98-107) mmol/L Carbon Dioxide 24 (22-30) mmol/L Anion Gap 9 mmol/L BUN 19 H (7-17) mg/dL Creatinine 0.95 (0.52-1.04) mg/dL Est GFR (CKD-EPI)AfAm 76 (>60 ml/min/1.73 sqM) Est GFR (CKD-EPI)NonAf 66 (>60 ml/min/1.73 sqM) Glucose 107 H (74-99) mg/dL Calcium 9.5 (8.4-10.2) mg/dL Magnesium 2.0 (1.6-2.3) mg/dL Total Bilirubin 0.6 (0.2-1.3) mg/dL AST 24 (14-36) U/L ALT 41 (9-52) U/L Alkaline Phosphatase 89 (38-126) U/L Troponin I (0.000-0.034) ng/mL Total Protein 6.9 (6.3-8.2) g/dL Albumin 4.2 (3.5-5.0) g/dL 05/27/19 Range/Units 11:05 WBC (3.8-10.6) k/uL RBC (3.80-5.40) m/uL Hgb (11.4-16.0) gm/dL Hct (34.0-46.0) % MCV (80.0-100.0) fL MCH (25.0-35.0) pg MCHC (31.0-37.0) g/dL RDW (11.5-15.5) % Plt Count (150-450) k/uL Neutrophils % % Lymphocytes % % Monocytes % % Eosinophils % % Basophils % % Neutrophils # (1.3-7.7) k/uL Lymphocytes # (1.0-4.8) k/uL Monocytes # (0-1.0) k/uL Eosinophils # (0-0.7) k/uL Basophils # (0-0.2) k/uL PT (9.0-12.0) sec INR (<1.2) APTT (22.0-30.0) sec Sodium (137-145) mmol/L Potassium (3.5-5.1) mmol/L Chloride (98-107) mmol/L Carbon Dioxide (22-30) mmol/L Anion Gap mmol/L BUN (7-17) mg/dL Creatinine (0.52-1.04) mg/dL Est GFR (CKD-EPI)AfAm (>60 ml/min/1.73 sqM) Est GFR (CKD-EPI)NonAf (>60 ml/min/1.73 sqM) Glucose (74-99) mg/dL Calcium (8.4-10.2) mg/dL Magnesium (1.6-2.3) mg/dL Total Bilirubin (0.2-1.3) mg/dL AST (14-36) U/L ALT (9-52) U/L Alkaline Phosphatase (38-126) U/L Troponin I <0.012 (0.000-0.034) ng/mL Total Protein (6.3-8.2) g/dL Albumin (3.5-5.0) g/dL Disposition Clinical Impression: High blood pressure Disposition: HOME SELF-CARE Condition: Good Additional Instructions: Patient should take and document her blood pressure before breakfast and lunch dinner in bed and follow-up with her primary medical care doctor. New. Patient should return to emergency department with her any new or worsening symptoms. Referrals: [facility] [Primary Care Provider] - 1-2 days Time of Disposition: 12:26
[2019-05-27 11:24] LABS: Basophils % (A) 0 %; Eosinophils # (A) 0.2 k/uL (0-0.7); Eosinophils % (A) 3 %; HCT 41.8 % (34.0-46.0); HGB 13.9 gm/dL (11.4-16.0); Lymphocytes # (A) 1.3 k/uL (1.0-4.8); Lymphocytes % (A) 21 %; MCH 29.2 pg (25.0-35.0); MCHC 33.3 g/dL (31.0-37.0); MCV 87.7 fL (80.0-100.0); Mean Platelet Volume 7.1; Monocytes # (A) 0.4 k/uL (0-1.0); Monocytes % (A) 7 %; Neutrophils # (A) 4.1 k/uL (1.3-7.7); Neutrophils % (A) 67 %; Platelet Count 193 k/uL (150-450); RBC 4.77 m/uL (3.80-5.40); RDW 12.9 % (11.5-15.5); WBC 6.1 k/uL (3.8-10.6)
--- NOTE | 2019-05-27 11:27 | XR ---
EXAMINATION TYPE: XR chest 2V DATE OF EXAM: 05/27/2019 COMPARISON: Chest x-ray 2 days ago. HISTORY: History of hypertension with chest pain. TECHNIQUE: Frontal and lateral views of the chest are obtained. FINDINGS: There is no focal air space opacity, pleural effusion, or pneumothorax seen. The cardiac silhouette size is within normal limits. Multilevel spurring in thoracic spine is redemonstrated. IMPRESSION: No acute cardiopulmonary process. No significant change from prior.
[2019-05-27 11:41] LABS: Albumin 4.2 g/dL (3.5-5.0); Calcium 9.5 mg/dL (8.4-10.2); INR 0.9 (<1.2); Partial Thromboplastin Time 23.9 sec (22.0-30.0); Potassium 4.3 mmol/L (3.5-5.1); Prothrombin Time 9.8 sec (9.0-12.0); Total Bilirubin 0.6 mg/dL (0.2-1.3); Total Protein 6.9 g/dL (6.3-8.2)
[2019-05-27 12:40] VITALS: BP 105/68; PULSE 60; TEMP 98
== END 2019-05-27 12:39 | disposition home or self-care (01) ==
LOC: EC 10:12
DX: I10 Essential (primary) hypertension (principal); R42 Dizziness and giddiness; J45.909 Unspecified asthma, uncomplicated; F41.9 Anxiety disorder, unspecified; F32.9 Major depressive disorder, single episode, unspecified; Z79.890 Hormone replacement therapy; Z79.899 Other long term (current) drug therapy; Z88.8 Allergy status to other drugs, medicaments and biological substances
CPT/HCPCS: 36415; 93005; 80053; 83735; 84484; 85025; 85610; 85730; 71046; 99284; 96374; J2060

== ENCOUNTER 2019-05-29 16:43 | Emergency (ER) | payer MEDICARE, OTHER ==
--- NOTE | 2019-05-29 18:22 | ED ---
General Adult HPI - General Chief complaint: Anxiety Stated complaint: Dizziness Time Seen by Provider: 05/29/19 17:08 Source: EMS Mode of arrival: EMS Limitations: no limitations - History of Present Illness Initial comments: 58-year-old female patient presents to the emergency department today for evaluation of headache and anxiety. Patient states for the last 2 weeks she has been getting frequent headaches. States that the headaches will come on and off like an intense pressure and pounding in her head. States that cause her to become anxious. States that today she did take Excedrin, 2 hours later took Ativan. Upon evaluation she does report feeling better. She denies any dizziness, chest pain, shortness of breath, nausea, vomiting. Denies any numbness, tingling, weakness to her extremities. Denies any blurred or double vision. Patient states that her anxiety increases so much that she has thoughts of dying. States when the headache is gone these thoughts go away. States that she does have an appointment with her primary care physician on June 04, doesn't think that she'll be able to make it that long. She denies any recent head injury. Denies history of headaches. Patient denies any recent rash, shortness breath, chest pain, abdominal pain, diarrhea, constipation, back pain, numbness, tingling, dizziness, weakness, hematuria, dysuria, urinary urgency, urinary frequency, or any other complaints. - Related Data Home Medications Medication Instructions Recorded Confirmed Levothyroxine Sodium [Synthroid] 25 mcg PO DAILY 09/18/15 05/25/19 Cholecalciferol (Vitamin D3) 4,000 unit PO DAILY PRN 01/12/19 05/25/19 [Vitamin D3] Cyanocobalamin (Vitamin B-12) 1,000 mcg PO DAILY PRN 01/12/19 05/25/19 [Vitamin B-12] Lisinopril 20 mg PO DAILY 01/12/19 05/25/19 Albuterol Sulfate [Albuterol 1 - 2 puff PO RT-Q4H PRN 05/16/19 05/25/19 Sulfate Hfa] Atorvastatin [Lipitor] 20 mg PO HS 05/16/19 05/25/19 Escitalopram [Lexapro] 5 mg PO DAILY 05/16/19 05/25/19 Fluticasone Nasal [place] [Flonase 1 spr EA NOSTRIL DAILY PRN 05/16/19 05/25/19 Nasal [place]] Lisinopril [Zestril] 10 mg PO HS 05/16/19 05/25/19 Meclizine [Antivert] 12.5 mg PO DAILY PRN 05/16/19 05/25/19 Propranolol [Inderal] 20 mg PO BID 05/16/19 05/25/19 Allergies Allergy/AdvReac Type Severity Reaction Status Date / Time niacin Allergy Swelling Verified 05/29/19 16:51 Review of Systems ROS Statement: Those systems with pertinent positive or pertinent negative responses have been documented in the HPI. ROS Other: All systems not noted in ROS Statement are negative. Past Medical History Past Medical History: Asthma, Hypertension Additional Past Medical History / Comment(s): History of wearing a Holter monitor 5-6 years ago for racing heart, Fibromyalgia, Rheumatoid Arthritis History of Any Multi-Drug Resistant Organisms: None Reported Past Surgical History: No Surgical Hx Reported Past Anesthesia/Blood Transfusion Reactions: No Reported Reaction Past Psychological History: Anxiety, Bipolar, Depression Smoking Status: Never smoker Past Alcohol Use History: None Reported Past Drug Use History: None Reported - Past Family History Father Family Medical History: Coronary Artery Disease (CAD) Mother Additional Family Medical History / Comment(s): Mother at the age of 2929 years old from alcholism. General Exam Limitations: no limitations General appearance: alert, in no apparent distress, other Eye exam: Present: normal appearance, PERRL, EOMI. Absent: scleral icterus, conjunctival injection, nystagmus, periorbital swelling ENT exam: Present: normal exam, normal oropharynx, mucous membranes moist Respiratory exam: Present: normal lung sounds bilaterally. Absent: respiratory distress, wheezes, rales, rhonchi, stridor Cardiovascular Exam: Present: regular rate, normal rhythm, normal heart sounds. Absent: systolic murmur, diastolic murmur, rubs, gallop, clicks GI/Abdominal exam: Present: soft, normal bowel sounds. Absent: distended, tenderness, guarding, rebound, rigid Neurological exam: Present: alert, oriented X3, CN II-XII intact Psychiatric exam: Present: normal affect, normal mood Skin exam: Present: warm, dry, intact, normal color. Absent: rash Course Vital Signs 05/29/19 16:44 Temperature 98.5 F Pulse Rate 78 Respiratory 18 Rate Blood Pressure 162/80 O2 Sat by Pulse 98 Oximetry Medical Decision Making - Medical Decision Making 58-year-old female patient presents to the emergency department today for evaluation of increased anxiety and headache. By the time of my evaluation patient symptoms had resolved. Patient has been seen multiple times over the last week for similar symptoms. I did review labs from her previous visits which were unremarkable. As this is her second or third visit for headache and did perform computed tomography scan the brain which was unremarkable. She'll be discharged at this time to follow-up with her primary care physician for recheck in 1-2 days. Return parameters were discussed in detail. She verbalizes understanding and agrees with this plan. - Radiology Data Radiology results: report reviewed, image reviewed CT brain without contrast was obtained. Report was reviewed in its entirety. Impression by Dr. Hilton shows negative computed tomography scan of the brain. Disposition Clinical Impression: Headache, Anxiety Disposition: HOME SELF-CARE Condition: Good Instructions (If sedation given, give patient instructions): Generalized Anxiety Disorder (ED), Acute Headache (ED) Additional Instructions: Increase fluids. Rest. Follow up with your primary care physician as you have planned. Return to the emergency department immediately for any new, worsening, or concerning symptoms. Is patient prescribed a controlled substance at d/c from ED?: No Referrals: [facility] [Primary Care Provider] - 1-2 days Time of Disposition: 18:42
--- NOTE | 2019-05-29 18:39 | CT ---
EXAMINATION TYPE: CT brain wo con DATE OF EXAM: 05/29/2019 COMPARISON: None HISTORY: Headaches with dizziness x [address] DLP: 1080.4 mGycm Automated exposure control for dose reduction was used. FINDINGS: Ventricles have normal size. There is no mass effect nor midline shift. There is no sign of intracran ial hemorrhage. The calvarium is intact. IMPRESSION: NEGATIVE CT SCAN OF THE BRAIN.
[2019-05-29 18:56] VITALS: BP 145/85; PULSE 87; RESP 16; TEMP 98.4
== END 2019-05-29 18:56 | disposition home or self-care (01) ==
LOC: EC 16:43
DX: F41.9 Anxiety disorder, unspecified (principal); R51 Headache; J45.909 Unspecified asthma, uncomplicated; I10 Essential (primary) hypertension; F31.9 Bipolar disorder, unspecified; Z88.8 Allergy status to other drugs, medicaments and biological substances; Z79.51 Long term (current) use of inhaled steroids; Z79.890 Hormone replacement therapy; Z79.899 Other long term (current) drug therapy; R45.851 Suicidal ideations
CPT/HCPCS: 70450; 99284

== ENCOUNTER → 2019-08-20 | Outpatient (CLI) | payer MEDICARE, OTHER ==
[2019-08-20 16:41] LABS: African American GFR (CKD) 57.3 (60.0-200.0); Anion Gap 6.4 mmol/L (4.00-12.00); BUN/Creat Ratio 12.5 Ratio (12.00-20.00); Calcium 9.3 mg/dL (8.7-10.3); Carbon Dioxide 28.6 mmol/L (21.6-31.8); Chol/HDL Ratio 3.98; LDL Cholesterol,Calculated 88.2 mg/dL (0.0-131.0); Non-African American GFR(CKD) 49.4 (60.0-200.0); Potassium 4.7 mmol/L (3.5-5.5); VLDL Calculation 36.8 mg/dL (5.00-40.00)
== END | disposition home or self-care (01) ==
LOC: LABWHC1 11:00
PROVIDERS: ATTEND Physician Assistant
DX: I10 Essential (primary) hypertension (principal); R53.83 Other fatigue; E78.5 Hyperlipidemia, unspecified
CPT/HCPCS: 36415; 80048; 80061; 84443

== ENCOUNTER 2019-09-04 18:31 | Emergency (ER) | payer MEDICARE, OTHER ==
[2019-09-04] MEDS ORDERED: SODIUM CHLORIDE 0.9% 500 ML 500 ML IV STA (18:49)
--- NOTE | 2019-09-04 19:02 | ED ---
General Adult HPI - General Chief complaint: Dizziness Stated complaint: Dizzy-poss med reaction Time Seen by Provider: 09/04/19 18:43 Source: patient, RN notes reviewed, old records reviewed Mode of arrival: wheelchair Limitations: no limitations - History of Present Illness Initial comments: 58-year-old female presenting with lightheadedness dizziness, generalized weakness. Patient's symptoms have been ongoing for many months. She does have a primary care physician bite does not feel like she has received full evaluation of her symptoms. She was diagnosed with UTI yesterday and started on Macrobid she states that after taking the initial dose she did feel somewhat lightheaded and dizzy. She denied significant headache. Denies focal numbness or weakness. Denied chest pain or abdominal pain. No vomiting or diarrhea. She has history of hypertension, depression. She states she was recently worked up for thyroid issues but has not received the results of this workup. She is complaining of continued dysuria and urinary frequency. - Related Data Home Medications Medication Instructions Recorded Confirmed Levothyroxine Sodium [Synthroid] 25 mcg PO DAILY 09/18/15 05/25/19 Cholecalciferol (Vitamin D3) 4,000 unit PO DAILY PRN 01/12/19 05/25/19 [Vitamin D3] Cyanocobalamin (Vitamin B-12) 1,000 mcg PO DAILY PRN 01/12/19 05/25/19 [Vitamin B-12] Lisinopril 20 mg PO DAILY 01/12/19 05/25/19 Albuterol Sulfate [Albuterol 1 - 2 puff PO RT-Q4H PRN 05/16/19 05/25/19 Sulfate Hfa] Atorvastatin [Lipitor] 20 mg PO HS 05/16/19 05/25/19 Escitalopram [Lexapro] 5 mg PO DAILY 05/16/19 05/25/19 Fluticasone Nasal [place] [Flonase 1 spr EA NOSTRIL DAILY PRN 05/16/19 05/25/19 Nasal [place]] Lisinopril [Zestril] 10 mg PO HS 05/16/19 05/25/19 Meclizine [Antivert] 12.5 mg PO DAILY PRN 05/16/19 05/25/19 Propranolol [Inderal] 20 mg PO BID 05/16/19 05/25/19 Allergies Allergy/AdvReac Type Severity Reaction Status Date / Time niacin Allergy Swelling Verified 09/04/19 18:41 Review of Systems ROS Statement: Those systems with pertinent positive or pertinent negative responses have been documented in the HPI. ROS Other: All systems not noted in ROS Statement are negative. Past Medical History Past Medical History: Asthma, Hypertension Additional Past Medical History / Comment(s): History of wearing a Holter mon itor 5-6 years ago for racing heart, Fibromyalgia, Rheumatoid Arthritis History of Any Multi-Drug Resistant Organisms: None Reported Past Surgical History: No Surgical Hx Reported Past Anesthesia/Blood Transfusion Reactions: No Reported Reaction Past Psychological History: Anxiety, Bipolar, Depression Smoking Status: Never smoker Past Alcohol Use History: None Reported Past Drug Use History: None Reported - Past Family History Father Family Medical History: Coronary Artery Disease (CAD) Mother Additional Family Medical History / Comment(s): Mother at the age of 2929 years old from alcholism. General Exam Limitations: no limitations General appearance: alert, in no apparent distress Head exam: Present: atraumatic, normocephalic Eye exam: Present: normal appearance, PERRL ENT exam: Present: normal exam Neck exam: Present: normal inspection. Absent: tenderness, meningismus Respiratory exam: Present: normal lung sounds bilaterally. Absent: respiratory distress, wheezes Cardiovascular Exam: Present: regular rate, normal rhythm GI/Abdominal exam: Present: soft. Absent: distended, tenderness, guarding Extremities exam: Present: normal inspection, normal capillary refill. Absent: pedal edema, joint swelling Neurological exam: Present: alert, oriented X3, CN II-XII intact, normal gait. Absent: motor sensory deficit Psychiatric exam: Present: normal affect Skin exam: Present: warm, dry, intact. Absent: cyanosis, diaphoretic Course Vital Signs 09/04/19 18:37 Temperature 98.1 F Pulse Rate 98 Respiratory 20 Rate Blood Pressure 159/87 O2 Sat by Pulse 99 Oximetry EKG Findings - EKG Comments: EKG Findings:: EKG: Normal sinus rhythm, rate of 88, HI interval 144, QRS duration 76, QTC 445, no ST segment elevation. Medical Decision Making - Medical Decision Making 58-year-old female with fatigue, dysuria and urinary frequency, currently being treated for UTI on Macrobid. Urinalysis obtained is negative for infection, totally clear urine. She has normal CBC with no leukocytosis, stable h emoglobin, normal electrolytes. EKG is sinus rhythm. She's given some IV hydration on reevaluation she does feel better. She has good outpatient follow- up. I did review laboratory testing within the past month she had a TSH obtained which was normal. She will need to follow-up with her primary care physician regarding these ongoing symptoms have been present for several months. - Lab Data Result diagrams: 09/04/19 19:00 09/04/19 19:00 Lab Results 09/04/19 09/04/19 09/04/19 Range/Units 19:00 19:00 19:00 WBC 6.3 (3.8-10.6) k/uL RBC 4.74 (3.80-5.40) m/uL Hgb 13.5 (11.4-16.0) gm/dL Hct 40.7 (34.0-46.0) % MCV 85.8 (80.0-100.0) fL MCH 28.4 (25.0-35.0) pg MCHC 33.1 (31.0-37.0) g/dL RDW 13.0 (11.5-15.5) % Plt Count 218 (150-450) k/uL Neutrophils % 67 % Lymphocytes % 23 % Monocytes % 5 % Eosinophils % 2 % Basophils % 1 % Neutrophils # 4.2 (1.3-7.7) k/uL Lymphocytes # 1.5 (1.0-4.8) k/uL Monocytes # 0.3 (0-1.0) k/uL Eosinophils # 0.2 (0-0.7) k/uL Basophils # 0.0 (0-0.2) k/uL PT 9.4 (9.0-12.0) sec INR 0.9 (<1.2) APTT 23.1 (22.0-30.0) sec Sodium 138 (137-145) mmol/L Potassium 4.2 (3.5-5.1) mmol/L Chloride 108 H (98-107) mmol/L Carbon Dioxide 21 L (22-30) mmol/L Anion Gap 9 mmol/L BUN 23 H (7-17) mg/dL Creatinine 1.03 (0.52-1.04) mg/dL Est GFR (CKD-EPI)AfAm 69 (>60 ml/min/1.73 sqM) Est GFR (CKD-EPI)NonAf 60 (>60 ml/min/1.73 sqM) Glucose 106 H (74-99) mg/dL Calcium 9.4 (8.4-10.2) mg/dL Magnesium 2.1 (1.6-2.3) mg/dL Total Bilirubin 0.3 (0.2-1.3) mg/dL AST 34 (14-36) U/L ALT 33 (4-34) U/L Alkaline Phosphatase 84 (38-126) U/L Troponin I (0.000-0.034) ng/mL Total Protein 6.8 (6.3-8.2) g/dL Albumin 4.3 (3.5-5.0) g/dL Urine Color Urine Appearance (Clear) Urine pH (5.0-8.0) Ur Specific [place] (1.001-1.035) Urine Protein (Negative) Urine Glucose (UA) (Negative) Urine Ketones (Negative) Urine Blood (Negative) Urine Nitrite (Negative) Urine Bilirubin (Negative) Urine Urobilinogen (<2.0) mg/dL Ur Leukocyte Esterase (Negative) 09/04/19 09/04/19 Range/Units 19:00 19:00 WBC (3.8-10.6) k/uL RBC (3.80-5.40) m/uL Hgb (11.4-16.0) gm/dL Hct (34.0-46.0) % MCV (80.0-100.0) fL MCH (25.0-35.0) pg MCHC (31.0-37.0) g/dL RDW (11.5-15.5) % Plt Count (150-450) k/uL Neutrophils % % Lymphocytes % % Monocytes % % Eosinophils % % Basophils % % Neutrophils # (1.3-7.7) k/uL Lymphocytes # (1.0-4.8) k/uL Monocytes # (0-1.0) k/uL Eosinophils # (0-0.7) k/uL Basophils # (0-0.2) k/uL PT (9.0-12.0) sec INR (<1.2) APTT (22.0-30.0) sec Sodium (137-145) mmol/L Potassium (3.5-5.1) mmol/L Chloride (98-107) mmol/L Carbon Dioxide (22-30) mmol/L Anion Gap mmol/L BUN (7-17) mg/dL Creatinine (0.52-1.04) mg/dL Est GFR (CKD-EPI)AfAm (>60 ml/min/1.73 sqM) Est GFR (CKD-EPI)NonAf (>60 ml/min/1.73 sqM) Glucose (74-99) mg/dL Calcium (8.4-10.2) mg/dL Magnesium (1.6-2.3) mg/dL Total Bilirubin (0.2-1.3) mg/dL AST (14-36) U/L ALT (4-34) U/L Alkaline Phosphatase (38-126) U/L Troponin I <0.012 (0.000-0.034) ng/mL Total Protein (6.3-8.2) g/dL Albumin (3.5-5.0) g/dL Urine Color Colorless Urine Appearance Clear (Clear) Urine pH 5.5 (5.0-8.0) Ur Specific [place] 1.002 (1.001-1.035) Urine Protein Negative (Negative) Urine Glucose (UA) Negative (Negative) Urine Ketones Negative (Negative) Urine Blood Negative (Negative) Urine Nitrite Negative (Negative) Urine Bilirubin Negative (Negative) Urine Urobilinogen <2.0 (<2.0) mg/dL Ur Leukocyte Esterase Negative (Negative) Disposition Clinical Impression: Dehydration Disposition: HOME SELF-CARE Condition: Good Instructions (If sedation given, give patient instructions): Dehydration (ED) Is patient prescribed a controlled substance at d/c from ED?: No Referrals: [facility] [Primary Care Provider] - 1-2 days Time of Disposition: 20:10
[2019-09-04 19:07] LABS: Basophils % (A) 1 %; Eosinophils # (A) 0.2 k/uL (0-0.7); Eosinophils % (A) 2 %; HCT 40.7 % (34.0-46.0); HGB 13.5 gm/dL (11.4-16.0); Lymphocytes # (A) 1.5 k/uL (1.0-4.8); Lymphocytes % (A) 23 %; MCH 28.4 pg (25.0-35.0); MCHC 33.1 g/dL (31.0-37.0); MCV 85.8 fL (80.0-100.0); Mean Platelet Volume 7.9; Monocytes # (A) 0.3 k/uL (0-1.0); Monocytes % (A) 5 %; Neutrophils # (A) 4.2 k/uL (1.3-7.7); Neutrophils % (A) 67 %; Platelet Count 218 k/uL (150-450); RBC 4.74 m/uL (3.80-5.40); WBC 6.3 k/uL (3.8-10.6)
[2019-09-04 19:09] LABS: Appearance,Urine Clear (Clear); Bilirubin,Urine Negative (Negative); Blood,Urine Negative (Negative); Color,Urine Colorless; Glucose,Urine (UA) Negative (Negative); Ketones,Urine Negative (Negative); Leukocyte Esterase,Urine Negative (Negative); Nitrite,Urine Negative (Negative); PH, Urine 5.5 (5.0-8.0); Protein,Urine Negative (Negative); Specific Gravity,Urine 1.002 (1.001-1.035); Urobilinogen,Urine <2.0 mg/dL (<2.0)
[2019-09-04 19:19] LABS: Albumin 4.3 g/dL (3.5-5.0); Calcium 9.4 mg/dL (8.4-10.2); INR 0.9 (<1.2); Magnesium 2.1 mg/dL (1.6-2.3); Partial Thromboplastin Time 23.1 sec (22.0-30.0); Potassium 4.2 mmol/L (3.5-5.1); Prothrombin Time 9.4 sec (9.0-12.0); Total Bilirubin 0.3 mg/dL (0.2-1.3); Total Protein 6.8 g/dL (6.3-8.2)
[2019-09-04 20:27] VITALS: BP 113/63; PULSE 81; RESP 18; TEMP 99
== END 2019-09-04 20:27 | disposition home or self-care (01) ==
LOC: EC 18:31
DX: E86.0 Dehydration (principal); R30.0 Dysuria; R35.0 Frequency of micturition; R53.1 Weakness; J45.909 Unspecified asthma, uncomplicated; I10 Essential (primary) hypertension; F31.9 Bipolar disorder, unspecified; F41.9 Anxiety disorder, unspecified; Z88.8 Allergy status to other drugs, medicaments and biological substances; Z79.51 Long term (current) use of inhaled steroids; Z79.890 Hormone replacement therapy; Z79.899 Other long term (current) drug therapy; Z87.440 Personal history of urinary (tract) infections
CPT/HCPCS: 36415; 80053; 81003; 83735; 84484; 85025; 85610; 85730; 93005; 96360; 99284

== ENCOUNTER 2019-09-06 03:55 | Emergency (ER) | payer MEDICARE, OTHER ==
[2019-09-06 04:00] VITALS: RESP 18
--- NOTE | 2019-09-06 04:56 | XR ---
EXAM: XR Soft Tissue Neck CLINICAL HISTORY: dyspnea TECHNIQUE: Frontal and lateral views of the soft tissues of the neck. COMPARISON: No relevant prior studies available. FINDINGS: Airway: Unremarkable. No abnormal narrowing. Bones/joints: Mild degenerative disc disease. Soft tissues: Prevertebral soft tissues appears thickened with questionable gas. Normal-appearing epiglottis. IMPRESSION: Prevertebral soft tissues appears thickened with questionable gas. Infectious etiology should be considered. CT may help to further evaluate if clinically indicated
[2019-09-06 05:26] LABS: Basophils % (A) 1 %; Eosinophils # (A) 0.1 k/uL (0-0.7); Eosinophils % (A) 3 %; HCT 40.3 % (34.0-46.0); HGB 13.6 gm/dL (11.4-16.0); Lymphocytes # (A) 1.1 k/uL (1.0-4.8); Lymphocytes % (A) 24 %; MCH 29.4 pg (25.0-35.0); MCHC 33.9 g/dL (31.0-37.0); MCV 86.7 fL (80.0-100.0); Monocytes # (A) 0.4 k/uL (0-1.0); Monocytes % (A) 8 %; Neutrophils # (A) 2.9 k/uL (1.3-7.7); Neutrophils % (A) 62 %; Platelet Count 170 k/uL (150-450); RBC 4.64 m/uL (3.80-5.40); RDW 12.8 % (11.5-15.5); WBC 4.7 k/uL (3.8-10.6)
[2019-09-06 05:42] LABS: Calcium 9.2 mg/dL (8.4-10.2); Potassium 4.4 mmol/L (3.5-5.1)
--- NOTE | 2019-09-06 05:59 | ED ---
Dizziness HPI - General Chief Complaint: Dizziness Stated Complaint: Dizzy,Diff Breathing Time Seen by Provider: 09/06/19 04:24 Source: patient Mode of arrival: ambulatory Limitations: no limitations - History of Present Illness MD Complaint: dizziness -: days(s) Timing: gradual onset Description: off-balance History of Trauma: No Severity: moderate Improves With: nothing Worsens With: nothing Associated Symptoms: other (throat tightening) - Related Data Home Medications Medication Instructions Recorded Confirmed Levothyroxine Sodium [Synthroid] 25 mcg PO DAILY 09/18/15 09/07/19 Cholecalciferol (Vitamin D3) 4,000 unit PO DAILY PRN 01/12/19 09/07/19 [Vitamin D3] Cyanocobalamin (Vitamin B-12) 1,000 mcg PO DAILY PRN 01/12/19 09/07/19 [Vitamin B-12] Lisinopril 20 mg PO BID 01/12/19 09/07/19 Albuterol Sulfate [Albuterol 1 - 2 puff PO RT-Q4H PRN 05/16/19 09/07/19 Sulfate Hfa] Atorvastatin [Lipitor] 20 mg PO HS 05/16/19 09/07/19 Escitalopram [Lexapro] 5 mg PO DAILY 05/16/19 09/07/19 Fluticasone Nasal [place] [Flonase 1 spr EA NOSTRIL DAILY PRN 05/16/19 09/07/19 Nasal [place]] Meclizine [Antivert] 12.5 mg PO DAILY PRN 05/16/19 09/07/19 Propranolol [Inderal] 20 mg PO BID 05/16/19 09/07/19 LORazepam [Ativan] 0.5 mg PO BID PRN 09/07/19 09/07/19 buPROPion XL [Wellbutrin Xl] 150 mg PO DAILY 09/07/19 09/07/19 traZODone HCL [Desyrel] 50 mg PO HS 09/07/19 09/07/19 Allergies Allergy/AdvReac Type Severity Reaction Status Date / Time niacin Allergy Swelling Verified 09/07/19 14:13 nitrofurantoin Allergy Unknown Verified 09/07/19 14:13 [From Macrobid] Review of Systems ROS Statement: Those systems with pertinent positive or pertinent negative responses have been documented in the HPI. ROS Other: All systems not noted in ROS Statement are negative. Constitutional: Denies: fever, chills ENT: Reports: as per HPI, throat pain Respiratory: Denies: cough, dyspnea Cardiovascular: Denies: chest pain, palpitations, orthopnea, syncope Gastrointestinal: Denies: abdominal pain, vomiting, diarrhea Genitourinary: Denies: dysuria Musculoskeletal: Denies: back pain Skin: Denies: rash Neurological: Denies: headache, weakness, numbness, paresthesias Past Medical History Past Medical History: Asthma, Hypertension Additional Past Medical History / Comment(s): History of wearing a Holter monitor 5-6 years ago for racing heart, Fibromyalgia, Rheumatoid Arthritis History of Any Multi-Drug Resistant Organisms: None Reported Past Surgical History: No Surgical Hx Reported Past Anesthesia/Blood Transfusion Reactions: No Reported Reaction Past Psychological History: Anxiety, Bipolar, Depression Smoking Status: Never smoker Past Alcohol Use History: None Reported Past Drug Use History: None Reported - Past Family History Father Family Medical History: Coronary Artery Disease (CAD) Mother Additional Family Medical History / Comment(s): Mother at the age of 2929 years old from alcholism. General Exam Limitations: no limitations General appearance: alert, in no apparent distress Head exam: Present: atraumatic, normocephalic Eye exam: Present: normal appearance. Absent: scleral icterus, conjunctival injection ENT exam: Present: normal oropharynx Neck exam: Present: normal inspection Respiratory exam: Present: normal lung sounds bilaterally. Absent: respiratory distress, wheezes, rales, rhonchi, stridor Cardiovascular Exam: Present: regular rate, normal rhythm, normal heart sounds. Absent: systolic murmur, diastolic murmur, rubs, gallop GI/Abdominal exam: Present: soft. Absent: distended, tenderness, guarding, rebound, mass Extremities exam: Present: normal inspection, normal capillary refill. Absent: pedal edema, calf tenderness Back exam: Present: normal inspection. Absent: CVA tenderness (R), CVA tende rness (L) Neurological exam: Present: alert Skin exam: Present: warm, dry, intact, normal color. Absent: rash Course Vital Signs 09/06/19 09/06/19 03:57 06:18 Temperature 97.9 F 98.3 F Pulse Rate 84 82 Respiratory 18 18 Rate Blood Pressure 180/95 157/75 O2 Sat by Pulse 98 98 Oximetry EKG Findings - EKG Results: EKG: interpreted by ERMD, sinus rhythm (Rate 60 bpm), normal axis, normal QRS, normal ST/T, no acute changes Medical Decision Making - Lab Data Result diagrams: 09/06/19 05:06 09/06/19 05:06 Lab Results 09/06/19 09/06/19 Range/Units 05:06 05:06 WBC 4.7 (3.8-10.6) k/uL RBC 4.64 (3.80-5.40) m/uL Hgb 13.6 (11.4-16.0) gm/dL Hct 40.3 (34.0-46.0) % MCV 86.7 (80.0-100.0) fL MCH 29.4 (25.0-35.0) pg MCHC 33.9 (31.0-37.0) g/dL RDW 12.8 (11.5-15.5) % Plt Count 170 (150-450) k/uL Neutrophils % 62 % Lymphocytes % 24 % Monocytes % 8 % Eosinophils % 3 % Basophils % 1 % Neutrophils # 2.9 (1.3-7.7) k/uL Lymphocytes # 1.1 (1.0-4.8) k/uL Monocytes # 0.4 (0-1.0) k/uL Eosinophils # 0.1 (0-0.7) k/uL Basophils # 0.0 (0-0.2) k/uL Sodium 138 (137-145) mmol/L Potassium 4.4 (3.5-5.1) mmol/L Chloride 107 (98-107) mmol/L Carbon Dioxide 25 (22-30) mmol/L Anion Gap 6 mmol/L BUN 15 (7-17) mg/dL Creatinine 1.03 (0.52-1.04) mg/dL Est GFR (CKD-EPI)AfAm 69 (>60 ml/min/1.73 sqM) Est GFR (CKD-EPI)NonAf 60 (>60 ml/min/1.73 sqM) Glucose 121 H (74-99) mg/dL Calcium 9.2 (8.4-10.2) mg/dL Disposition Clinical Impression: Dizziness Disposition: HOME SELF-CARE Condition: Good Instructions (If sedation given, give patient instructions): Dizziness (ED) Is patient prescribed a controlled substance at d/c from ED?: No Referrals: [facility] [Primary Care Provider] - 1-2 days Donna Huitron MD [STAFF PHYSICIAN] - 1-2 days
[2019-09-06 06:19] VITALS: BP 157/75; PULSE 82; TEMP 98.3
== END 2019-09-06 06:19 | disposition home or self-care (01) ==
LOC: EC 03:55
DX: R42 Dizziness and giddiness (principal); R06.00 Dyspnea, unspecified; R09.89 Other specified symptoms and signs involving the circulatory and respiratory systems; J45.909 Unspecified asthma, uncomplicated; I10 Essential (primary) hypertension; F41.9 Anxiety disorder, unspecified; F32.9 Major depressive disorder, single episode, unspecified; Z79.890 Hormone replacement therapy; Z79.899 Other long term (current) drug therapy; Z88.8 Allergy status to other drugs, medicaments and biological substances; Z88.1 Allergy status to other antibiotic agents
CPT/HCPCS: 36415; 70360; 80048; 85025; 99284

== ENCOUNTER 2019-09-07 | Emergency (ER) | payer MEDICARE, OTHER | END 2019-09-07 16:38 | disposition home or self-care (01) | CPT/HCPCS: 36415; 80053; 80306; 81001; 82075; 83735; 85025; 93005; 99285 ==

== ENCOUNTER 2019-11-24 07:10 | Emergency (ER) | payer MEDICARE, OTHER ==
[2019-11-24 07:25] VITALS: RESP 18
[2019-11-24] MEDS ORDERED: SODIUM CHLORIDE 0.9% 1,000 ML IV ONE (07:25)
--- NOTE | 2019-11-24 07:32 | ED ---
General Adult HPI - General Chief complaint: Dizziness Stated complaint: Dizziness Time Seen by Provider: 11/24/19 07:11 Source: patient, EMS, RN notes reviewed, old records reviewed Mode of arrival: EMS Limitations: no limitations - History of Present Illness Initial comments: 59-year-old female presenting for evaluation of lightheadedness and dizziness. Symptoms have been ongoing for several months. Patient does admit that she is quite anxious about the current pandemic. She has been following with her primary care physician, ENT, and neurology regarding these symptoms for several months. She's had extensive workup including lab testing and advanced imaging. She states she has been eating poorly, not exercising, staying in her apartment 4 days on and. She does have history of anxiety and depression. She denies focal numbness or weakness, denies central chest pain. She denies vomiting or diarrhea. Denies fever. Denies cough. - Related Data Home Medications Medication Instructions Recorded Confirmed Levothyroxine Sodium [Synthroid] 25 mcg PO DAILY 09/18/15 09/07/19 Cholecalciferol (Vitamin D3) 4,000 unit PO DAILY PRN 01/12/19 09/07/19 [Vitamin D3] Cyanocobalamin (Vitamin B-12) 1,000 mcg PO DAILY PRN 01/12/19 09/07/19 [Vitamin B-12] Lisinopril 20 mg PO BID 01/12/19 09/07/19 Albuterol Sulfate [Albuterol 1 - 2 puff PO RT-Q4H PRN 05/16/19 09/07/19 Sulfate Hfa] Atorvastatin [Lipitor] 20 mg PO HS 05/16/19 09/07/19 Escitalopram [Lexapro] 5 mg PO DAILY 05/16/19 09/07/19 Fluticasone Nasal [place] [Flonase 1 spr EA NOSTRIL DAILY PRN 05/16/19 09/07/19 Nasal [place]] Meclizine [Antivert] 12.5 mg PO DAILY PRN 05/16/19 09/07/19 Propranolol [Inderal] 20 mg PO BID 05/16/19 09/07/19 LORazepam [Ativan] 0.5 mg PO BID PRN 09/07/19 09/07/19 buPROPion XL [Wellbutrin Xl] 150 mg PO DAILY 09/07/19 09/07/19 traZODone HCL [Desyrel] 50 mg PO HS 09/07/19 09/07/19 Allergies Allergy/AdvReac Type Severity Reaction Status Date / Time niacin Allergy Swelling Verified 11/24/19 07:28 nitrofurantoin Allergy Unknown Verified 11/24/19 07:28 [From Macrobid] cyclobenzaprine AdvReac Unknown Verified 11/24/19 07:28 [From Flexeril] Review of Systems ROS Statement: Those systems with pertinent positive or pertinent negative responses have been documented in the HPI. ROS Other: All systems not noted in ROS Statement are negative. Past Medical History Past Medical History: Asthma, Hypertension Additional Past Medical History / Comment(s): History of wearing a Holter monitor 5-6 years ago for racing heart, Fibromyalgia, Rheumatoid Arthritis History of Any Multi-Drug Resistant Organisms: None Reported Past Surgical History: No Surgical Hx Reported Past Anesthesia/Blood Transfusion Reactions: No Reported Reaction Past Psychological History: Anxiety, Bipolar, Depression, PTSD Smoking Status: Never smoker Past Alcohol Use History: None Reported Past Drug Use History: None Reported - Past Family History Father Family Medical History: Coronary Artery Disease (CAD) Mother Additional Family Medical History / Comment(s): Mother at the age of 2929 years old from alcholism. General Exam Limitations: no limitations General appearance: alert, in no apparent distress, anxious Head exam: Present: atraumatic, normocephalic Eye exam: Present: normal appearance, PERRL, EOMI ENT exam: Present: mucous membranes dry Neck exam: Present: normal inspection. Absent: tenderness, meningismus Respiratory exam: Present: normal lung sounds bilaterally. Absent: respiratory distress, wheezes, rales Cardiovascular Exam: Present: regular rate, normal rhythm GI/Abdominal exam: Present: soft. Absent: distended, tenderness, guarding, rebound Extremities exam: Present: normal inspection, normal capillary refill. Absent: pedal edema, calf tenderness Neurological exam: Present: alert, oriented X3, CN II-XII intact, normal gait. Absent: motor sensory deficit Psychiatric exam: Present: anxious Skin exam: Present: warm, dry, intact. Absent: cyanosis, diaphoretic Course Vital Signs 11/24/19 11/24/19 07:22 08:18 Temperature 98.2 F Pulse Rate 72 69 Respiratory 18 18 Rate Blood Pressure 137/84 108/87 O2 Sat by Pulse 98 97 Oximetry EKG Findings - EKG Comments: EKG Findings:: EKG: Normal sinus rhythm, rate of 68, IA interval 156, QRS duration 88, QTC 406, no ST segment elevation Medical Decision Making - Medical Decision Making 59-year-old female with chronic complaints, suspect a component of anxiety. She has stable vitals, nonfocal neurologic exam. She is well-appearing. She has a normal CBC stable hemoglobin, no leukocytosis, normal electrolytes, urinalysis negative for infection, negative troponin, nonischemic EKG. She is reassured and will take to follow-up with her specialist on an outpatient basis. - Lab Data Result diagrams: 11/24/19 07:11/24/19 07:20 Lab Results 11/24/19 11/24/19 11/24/19 Range/Units 07:20 07:20 07:20 WBC 5.8 (3.8-10.6) k/uL RBC 4.77 (3.80-5.40) m/uL Hgb 13.7 (11.4-16.0) gm/dL Hct 41.0 (34.0-46.0) % MCV 86.0 (80.0-100.0) fL MCH 28.6 (25.0-35.0) pg MCHC 33.3 (31.0-37.0) g/dL RDW 12.9 (11.5-15.5) % Plt Count 203 (150-450) k/uL Neutrophils % 63 % Lymphocytes % 22 % Monocytes % 8 % Eosinophils % 3 % Basophils % 0 % Neutrophils # 3.7 (1.3-7.7) k/uL Lymphocytes # 1.3 (1.0-4.8) k/uL Monocytes # 0.5 (0-1.0) k/uL Eosinophils # 0.2 (0-0.7) k/uL Basophils # 0.0 (0-0.2) k/uL Sodium 138 (137-145) mmol/L Potassium 3.7 (3.5-5.1) mmol/L Chloride 105 (98-107) mmol/L Carbon Dioxide 23 (22-30) mmol/L Anion Gap 10 mmol/L BUN 18 H (7-17) mg/dL Creatinine 0.86 (0.52-1.04) mg/dL Est GFR (CKD-EPI)AfAm 86 (>60 ml/min/1.73 sqM) Est GFR (CKD-EPI)NonAf 74 (>60 ml/min/1.73 sqM) Glucose 119 H (74-99) mg/dL Calcium 9.2 (8.4-10.2) mg/dL Magnesium 2.0 (1.6-2.3) mg/dL Total Bilirubin 0.4 (0.2-1.3) mg/dL AST 24 (14-36) U/L ALT 28 (4-34) U/L Alkaline Phosphatase 89 (38-126) U/L Troponin I <0.012 (0.000-0.034) ng/mL Total Protein 6.6 (6.3-8.2) g/dL Albumin 4.0 (3.5-5.0) g/dL Urine Color Urine Appearance (Clear) Urine pH (5.0-8.0) Ur Specific [place] (1.001-1.035) Urine Protein (Negative) Urine Glucose (UA) (Negative) Urine Ketones (Negative) Urine Blood (Negative) Urine Nitrite (Negative) Urine Bilirubin (Negative) Urine Urobilinogen (<2.0) mg/dL Ur Leukocyte Esterase (Negative) Urine RBC (0-5) /hpf Urine WBC (0-5) /hpf Ur Squamous Epith Cells (0-4) /hpf Urine Bacteria (None) /hpf Hyaline Casts (0-2) /lpf Urine Mucus (None) /hpf 11/24/19 Range/Units 08:14 WBC (3.8-10.6) k/uL RBC (3.80-5.40) m/uL Hgb (11.4-16.0) gm/dL Hct (34.0-46.0) % MCV (80.0-100.0) fL MCH (25.0-35.0) pg MCHC (31.0-37.0) g/dL RDW (11.5-15.5) % Plt Count (150-450) k/uL Neutrophils % % Lymphocytes % % Monocytes % % Eosinophils % % Basophils % % Neutrophils # (1.3-7.7) k/uL Lymphocytes # (1.0-4.8) k/uL Monocytes # (0-1.0) k/uL Eosinophils # (0-0.7) k/uL Basophils # (0-0.2) k/uL Sodium (137-145) mmol/L Potassium (3.5-5.1) mmol/L Chloride (98-107) mmol/L Carbon Dioxide (22-30) mmol/L Anion Gap mmol/L BUN (7-17) mg/dL Creatinine (0.52-1.04) mg/dL Est GFR (CKD-EPI)AfAm (>60 ml/min/1.73 sqM) Est GFR (CKD-EPI)NonAf (>60 ml/min/1.73 sqM) Glucose (74-99) mg/dL Calcium (8.4-10.2) mg/dL Magnesium (1.6-2.3) mg/dL Total Bilirubin (0.2-1.3) mg/dL AST (14-36) U/L ALT (4-34) U/L Alkaline Phosphatase (38-126) U/L Troponin I (0.000-0.034) ng/mL Total Protein (6.3-8.2) g/dL Albumin (3.5-5.0) g/dL Urine Color Light Yellow Urine Appearance Clear (Clear) Urine pH 5.5 (5.0-8.0) Ur Specific [place] 1.008 (1.001-1.035) Urine Protein Negative (Negative) Urine Glucose (UA) Negative (Negative) Urine Ketones Negative (Negative) Urine Blood Negative (Negative) Urine Nitrite Negative (Negative) Urine Bilirubin Negative (Negative) Urine Urobilinogen <2.0 (<2.0) mg/dL Ur Leukocyte Esterase Small H (Negative) Urine RBC <1 (0-5) /hpf Urine WBC 4 (0-5) /hpf Ur Squamous Epith Cells 2 (0-4) /hpf Urine Bacteria Rare H (None) /hpf Hyaline Casts 4 H (0-2) /lpf Urine Mucus Rare H (None) /hpf Disposition Clinical Impression: Acute anxiety Disposition: HOME SELF-CARE Condition: Fair Instructions (If sedation given, give patient instructions): Dizziness (ED), Anxiety (ED) Is patient prescribed a controlled substance at d/c from ED?: No Referrals: Phill Hillman NPC [REFERRING] - 1-2 days Time of Disposition: 08:47
[2019-11-24 07:38] LABS: Basophils % (A) 0 %; Eosinophils # (A) 0.2 k/uL (0-0.7); Eosinophils % (A) 3 %; HGB 13.7 gm/dL (11.4-16.0); Lymphocytes # (A) 1.3 k/uL (1.0-4.8); Lymphocytes % (A) 22 %; MCH 28.6 pg (25.0-35.0); MCHC 33.3 g/dL (31.0-37.0); Mean Platelet Volume 7.9; Monocytes # (A) 0.5 k/uL (0-1.0); Monocytes % (A) 8 %; Neutrophils # (A) 3.7 k/uL (1.3-7.7); Neutrophils % (A) 63 %; Platelet Count 203 k/uL (150-450); RBC 4.77 m/uL (3.80-5.40); RDW 12.9 % (11.5-15.5); WBC 5.8 k/uL (3.8-10.6)
[2019-11-24 07:48] LABS: Calcium 9.2 mg/dL (8.4-10.2); Potassium 3.7 mmol/L (3.5-5.1); Total Bilirubin 0.4 mg/dL (0.2-1.3); Total Protein 6.6 g/dL (6.3-8.2)
[2019-11-24 08:20] VITALS: PULSE 69
[2019-11-24 08:31] LABS: Appearance,Urine Clear (Clear); Bacteria,Urine Rare /hpf; Bilirubin,Urine Negative (Negative); Blood,Urine Negative (Negative); Color,Urine Light Yellow; Glucose,Urine (UA) Negative (Negative); Hyaline Casts,Urine 4 /lpf (0-2); Ketones,Urine Negative (Negative); Leukocyte Esterase,Urine Small (Negative); Mucus,Urine Rare /hpf; Nitrite,Urine Negative (Negative); PH, Urine 5.5 (5.0-8.0); Protein,Urine Negative (Negative); RBC,Urine <1 /hpf (0-5); Specific Gravity,Urine 1.008 (1.001-1.035); Squamous Epithelial Cell,Urine 2 /hpf (0-4); Urobilinogen,Urine <2.0 mg/dL (<2.0); WBC,Urine 4 /hpf (0-5)
[2019-11-24 09:02] VITALS: BP 111/72; TEMP 98.7
== END 2019-11-24 09:04 | disposition home or self-care (01) ==
LOC: EC 07:10
DX: F41.9 Anxiety disorder, unspecified (principal); I10 Essential (primary) hypertension; J45.909 Unspecified asthma, uncomplicated; F31.9 Bipolar disorder, unspecified; Z79.51 Long term (current) use of inhaled steroids; Z79.899 Other long term (current) drug therapy; Z79.890 Hormone replacement therapy; Z88.1 Allergy status to other antibiotic agents; Z88.8 Allergy status to other drugs, medicaments and biological substances
CPT/HCPCS: 36415; 80053; 81001; 83735; 84484; 85025; 93005; 96360; 99285

== ENCOUNTER 2019-11-29 10:52 | Emergency (ER) | payer MEDICARE, OTHER ==
[2019-11-29 10:59] VITALS: PULSE 77; RESP 16; TEMP 98.1
--- NOTE | 2019-11-29 12:01 | ED ---
General Adult HPI - General Chief complaint: Recheck/Abnormal Lab/Rx Stated complaint: Anxiety Time Seen by Provider: 11/29/19 11:24 Source: patient, EMS Mode of arrival: EMS Limitations: no limitations - History of Present Illness Initial comments: Patient is 59-year-old female presenting to the emergency department for multiple complaints. Patient states for the past few [place] feeling generally weak and has low motivation to do anything. Patient states typically she would exercise over [id number] steps daily, however now she does not feel like doing anything. States she also has been noticing drymouthed more frequent. States she is urinating more than usual. This appears to be ongoing for the past few months as well. States she recently established care with a new PCP but has not been able to have an office visit due to coronavirus. Patient also reports occasional nausea but no vomiting. Patient denies any chest pain, vomiting, diarrhea, shortness of breath. Patient reports a strong family history of diabetes but has never been tested previously. She denies any urinary or vaginal symptoms. Denies hematuria, hematochezia or melena. Denies any abdominal back pain at this time. - Related Data Home Medications Medication Instructions Recorded Confirmed Levothyroxine Sodium [Synthroid] 25 mcg PO DAILY 09/18/15 09/07/19 Cholecalciferol (Vitamin D3) 4,000 unit PO DAILY PRN 01/12/19 09/07/19 [Vitamin D3] Cyanocobalamin (Vitamin B-12) 1,000 mcg PO DAILY PRN 01/12/19 09/07/19 [Vitamin B-12] Lisinopril 20 mg PO BID 01/12/19 09/07/19 Albuterol Sulfate [Albuterol 1 - 2 puff PO RT-Q4H PRN 05/16/19 09/07/19 Sulfate Hfa] Atorvastatin [Lipitor] 20 mg PO HS 05/16/19 09/07/19 Escitalopram [Lexapro] 5 mg PO DAILY 05/16/19 09/07/19 Fluticasone Nasal [place] [Flonase 1 spr EA NOSTRIL DAILY PRN 05/16/19 09/07/19 Nasal [place]] Meclizine [Antivert] 12.5 mg PO DAILY PRN 05/16/19 09/07/19 Propranolol [Inderal] 20 mg PO BID 05/16/19 09/07/19 LORazepam [Ativan] 0.5 mg PO BID PRN 09/07/19 09/07/19 buPROPion XL [Wellbutrin Xl] 150 mg PO DAILY 09/07/19 09/07/19 traZODone HCL [Desyrel] 50 mg PO HS 09/07/19 09/07/19 Allergies Allergy/AdvReac Type Severity Reaction Status Date / Time niacin Allergy Swelling Verified 11/29/19 10:59 nitrofurantoin Allergy Unknown Verified 11/29/19 10:59 [From Macrobid] cyclobenzaprine AdvReac Unknown Verified 11/29/19 10:59 [From Flexeril] Review of Systems ROS Statement: Those systems with pertinent positive or pertinent negative responses have been documented in the HPI. ROS Other: All systems not noted in ROS Statement are negative. Past Medical History Past Medical History: Asthma, Hypertension Additional Past Medical History / Comment(s): History of wearing a Holter monitor 5-6 years ago for racing heart, Fibromyalgia, Rheumatoid Arthritis History of Any Multi-Drug Resistant Organisms: None Reported Past Surgical History: No Surgical Hx Reported Past Anesthesia/Blood Transfusion Reactions: No Reported Reaction Past Psychological History: Anxiety, Bipolar, Depression, PTSD Smoking Status: Never smoker Past Alcohol Use History: None Reported Past Drug Use History: None Reported - Past Family History Father Family Medical History: Coronary Artery Disease (CAD) Mother Additional Family Medical History / Comment(s): Mother at the age of 2929 years old from alcholism. General Exam Limitations: no limitations General appearance: alert, in no apparent distress, obese Head exam: Present: atraumatic, normocephalic, normal inspection Eye exam: Present: normal appearance, PERRL, EOMI Pupils: Present: normal accommodation ENT exam: Present: normal exam, normal oropharynx, mucous membranes dry Neck exam: Present: normal inspection, full ROM Respiratory exam: Present: normal lung sounds bilaterally. Absent: respiratory distress, wheezes, rales Cardiovascular Exam: Present: regular rate, normal rhythm, normal heart sounds. Absent: bradycardia, tachycardia GI/Abdominal exam: Present: soft. Absent: distended, tenderness, guarding, rebound Extremities exam: Present: normal inspection, full ROM Back exam: Present: normal inspection, full ROM Neurological exam: Present: alert, oriented X3 Psychiatric exam: Present: normal affect, normal mood Skin exam: Present: warm, dry, intact, normal color Course Vital Signs 11/29/19 10:54 Temperature 98.1 F Pulse Rate 77 Respiratory 16 Rate Blood Pressure 124/77 O2 Sat by Pulse 96 Oximetry Medical Decision Making - Medical Decision Making Patient is 59-year-old female presenting to emergency Department with multiple chief complaints. Physical examination is unremarkable. Patient has been complaining of a dry mouth at polyuria for the past 3 months. She also has other constitutional symptoms of occasional weakness and not feeling any motivation to do any work for over 3 months. She does have strong family history of diabetes. She is obese. UA is unremarkable. Accu-Chek is 122 but she did not have any meals today. Patient advised to follow with the primary care. Return parameters thoroughly discussed the patient is understanding and agreeable. Case discussed physician. - Lab Data Lab Results 11/29/19 11/29/19 Range/Units 12:03 12:08 POC Glucose (mg/dL) 122 H (75-99) mg/dL POC Glu [employer]asing [employer] Operator ID Nasim Laughlin Urine Color Light Yellow Urine Appearance Clear (Clear) Urine pH 7.0 (5.0-8.0) Ur Specific [place] 1.008 (1.001-1.035) Urine Protein Negative (Negative) Urine Glucose (UA) Negative (Negative) Urine Ketones Negative (Negative) Urine Blood Negative (Negative) Urine Nitrite Negative (Negative) Urine Bilirubin Negative (Negative) Urine Urobilinogen <2.0 (<2.0) mg/dL Ur Leukocyte Esterase Trace H (Negative) Urine RBC <1 (0-5) /hpf Urine WBC 3 (0-5) /hpf Ur Squamous Epith Cells 1 (0-4) /hpf Urine Mucus Rare H (None) /hpf Disposition Clinical Impression: Fatigue, Dry mouth, unspecified Disposition: HOME SELF-CARE Condition: Stable Instructions (If sedation given, give patient instructions): Fatigue (ED) Additional Instructions: Follow-up with her primary care. Return to emergency department if symptoms worsen. Is patient prescribed a controlled substance at d/c from ED?: No Referrals: Ben Pham MD [Primary Care Provider] - 1-2 days Time of Disposition: 13:07
[2019-11-29 12:37] LABS: Glucose,Whole Blood 122 mg/dL (75-99)
[2019-11-29 12:41] LABS: Appearance,Urine Clear (Clear); Bilirubin,Urine Negative (Negative); Blood,Urine Negative (Negative); Color,Urine Light Yellow; Glucose,Urine (UA) Negative (Negative); Ketones,Urine Negative (Negative); Leukocyte Esterase,Urine Trace (Negative); Mucus,Urine Rare /hpf; Nitrite,Urine Negative (Negative); Protein,Urine Negative (Negative); RBC,Urine <1 /hpf (0-5); Specific Gravity,Urine 1.008 (1.001-1.035); Squamous Epithelial Cell,Urine 1 /hpf (0-4); Urobilinogen,Urine <2.0 mg/dL (<2.0); WBC,Urine 3 /hpf (0-5)
[2019-11-29 13:40] VITALS: BP 100/45
== END 2019-11-29 13:56 | disposition home or self-care (01) ==
LOC: EC 10:52
DX: R68.2 Dry mouth, unspecified (principal); R53.83 Other fatigue; R53.1 Weakness; E66.9 Obesity, unspecified; Z68.41 Body mass index [BMI] 40.0-44.9, adult; J45.909 Unspecified asthma, uncomplicated; I10 Essential (primary) hypertension; F41.9 Anxiety disorder, unspecified; F31.9 Bipolar disorder, unspecified; Z79.899 Other long term (current) drug therapy; Z79.890 Hormone replacement therapy; Z88.1 Allergy status to other antibiotic agents; Z88.8 Allergy status to other drugs, medicaments and biological substances
CPT/HCPCS: 36415; 81001; 99283

== ENCOUNTER 2020-03-26 13:02 | Emergency (ER) | payer MEDICARE, OTHER ==
[2020-03-26 13:12] VITALS: RESP 20; TEMP 98.7
[2020-03-26] MEDS ORDERED: SODIUM CHLORIDE 0.9% 1,000 ML IV STA (13:28)
--- NOTE | 2020-03-26 13:34 | ED ---
Dizziness HPI - General Chief Complaint: Dizziness Stated Complaint: Dizziness Time Seen by Provider: 03/26/20 13:15 Source: patient, EMS, RN notes reviewed, old records reviewed Mode of arrival: EMS Limitations: no limitations - History of Present Illness Initial Comments: This is a 59-year-old female with multiple nonspecific complaints coming with sy mptoms of overall dizziness and feels like she has to of the bathroom more than normal. Also complaining of some is muscle aches and pains. Mild nausea no active vomiting no abdominal pain no chest pain dysuria or painful urinations. No fevers no travel show sick contacts no change in medications MD Complaint: dizziness, lightheadedness -: hour(s) Timing: gradual onset Description: "room spinning", lightheadedness History of Same: No History of Trauma: No Severity: mild Improves With: remaining still Worsens With: movement Associated Symptoms: denies other symptoms - Related Data Home Medications Medication Instructions Recorded Confirmed Levothyroxine Sodium [Synthroid] 25 mcg PO DAILY 09/18/15 09/07/19 Cholecalciferol (Vitamin D3) 4,000 unit PO DAILY PRN 01/12/19 09/07/19 [Vitamin D3] Cyanocobalamin (Vitamin B-12) 1,000 mcg PO DAILY PRN 01/12/19 09/07/19 [Vitamin B-12] lisinopriL 20 mg PO BID 01/12/19 09/07/19 Albuterol Sulfate [Albuterol 1 - 2 puff PO RT-Q4H PRN 05/16/19 09/07/19 Sulfate Hfa] Atorvastatin [Lipitor] 20 mg PO HS 05/16/19 09/07/19 Escitalopram [Lexapro] 5 mg PO DAILY 05/16/19 09/07/19 Fluticasone Nasal [place] [Flonase 1 spr EA NOSTRIL DAILY PRN 05/16/19 09/07/19 Nasal [place]] Meclizine [Antivert] 12.5 mg PO DAILY PRN 05/16/19 09/07/19 Propranolol [Inderal] 20 mg PO BID 05/16/19 09/07/19 LORazepam [Ativan] 0.5 mg PO BID PRN 09/07/19 09/07/19 buPROPion XL [Wellbutrin Xl] 150 mg PO DAILY 09/07/19 09/07/19 traZODone HCL [Desyrel] 50 mg PO HS 09/07/19 09/07/19 Allergies Allergy/AdvReac Type Severity Reaction Status Date / Time niacin Allergy Swelling Verified 11/29/19 10:59 nitrofurantoin Allergy Unknown Verified 11/29/19 10:59 [From Macrobid] cyclobenzaprine AdvReac Unknown Verified 11/29/19 10:59 [From Flexeril] Review of Systems ROS Statement: Those systems with pertinent positive or pertinent negative responses have been documented in the HPI. ROS Other: All systems not noted in ROS Statement are negative. Past Medical History Past Medical History: Asthma, Hypertension Additional Past Medical History / Comment(s): History of wearing a Holter monitor 5-6 years ago for racing heart, Fibromyalgia, Rheumatoid Arthritis History of Any Multi-Drug Resistant Organisms: None Reported Past Surgical History: No Surgical Hx Reported Past Anesthesia/Blood Transfusion Reactions: No Reported Reaction Past Psychological History: Anxiety, Bipolar, Depression, PTSD Smoking Status: Never smoker Past Alcohol Use History: None Reported Past Drug Use History: Marijuana - Past Family History Father Family Medical History: Coronary Artery Disease (CAD) Mother Additional Family Medical History / Comment(s): Mother at the age of 2929 years old from alcholism. General Exam - General Exam Comments Initial Comments: NIH of 0 with no focal neurological deficit Limitations: no limitations General appearance: alert, in no apparent distress Head exam: Present: atraumatic, normocephalic, normal inspection Eye exam: Present: normal appearance, PERRL, EOMI. Absent: scleral icterus, conjunctival injection, periorbital swelling ENT exam: Present: normal exam, mucous membranes moist Neck exam: Present: normal inspection. Absent: tenderness, meningismus, lymphadenopathy Respiratory exam: Present: normal lung sounds bilaterally. Absent: respiratory distress, wheezes, rales, rhonchi, stridor Cardiovascular Exam: Present: regular rate, normal rhythm, normal heart sounds. Absent: systolic murmur, diastolic murmur, rubs, gallop, clicks GI/Abdominal exam: Present: soft, normal bowel sounds. Absent: distended, tenderness, guarding, rebound, rigid Extremities exam: Present: normal inspection, full ROM, normal capillary refill. Absent: tenderness, pedal edema, joint swelling, calf tenderness Back exam: Present: normal inspection Neurological exam: Present: alert, oriented X3, CN II-XII intact Psychiatric exam: Present: normal affect, normal mood Skin exam: Present: warm, dry, intact, normal color. Absent: rash Course Vital Signs 03/26/20 03/26/20 03/26/20 13:03 14:11 15:11 Temperature 98.7 F Pulse Rate 67 67 70 Respiratory 20 20 20 Rate Blood Pressure 129/67 117/78 107/63 O2 Sat by Pulse 98 98 98 Oximetry 03/26/20 15:58 Temperature 98.7 F Pulse Rate 70 Respiratory 20 Rate Blood Pressure 107/63 O2 Sat by Pulse 98 Oximetry - Reevaluation(s) Reevaluation #1: Medical record is reviewed Patient symptoms are significantly improved Patient denying any headache or pain no chest pain Patient is able to ambulate without difficulty or ataxia EKG Findings - EKG Comments: EKG Findings:: EKG is sinus rhythm 65 DE 132 QRS 76 QTc 413 Medical Decision Making - Medical Decision Making 59 female who recently presented for not feeling herself with multiple other nonspecific complaints states with history of vertigo similar symptoms. Patient offered observation here in the hospital, refusing to be admitted states she feels well like discharge home - Lab Data Result diagrams: 03/26/20 13:55 03/26/20 13:55 Lab Results 03/26/20 03/26/20 03/26/20 Range/Units 13:55 13:55 13:55 WBC 6.8 (3.8-10.6) k/uL RBC 5.05 (3.80-5.40) m/uL Hgb 14.6 (11.4-16.0) gm/dL Hct 43.3 (34.0-46.0) % MCV 85.8 (80.0-100.0) fL MCH 28.9 (25.0-35.0) pg MCHC 33.7 (31.0-37.0) g/dL RDW 12.9 (11.5-15.5) % Plt Count 207 (150-450) k/uL Neutrophils % 72 % Lymphocytes % 18 % Monocytes % 5 % Eosinophils % 2 % Basophils % 0 % Neutrophils # 4.9 (1.3-7.7) k/uL Lymphocytes # 1.2 (1.0-4.8) k/uL Monocytes # 0.4 (0-1.0) k/uL Eosinophils # 0.1 (0-0.7) k/uL Basophils # 0.0 (0-0.2) k/uL Sodium 140 (137-145) mmol/L Potassium 4.2 (3.5-5.1) mmol/L Chloride 107 (98-107) mmol/L Carbon Dioxide 25 (22-30) mmol/L Anion Gap 8 mmol/L BUN 15 (7-17) mg/dL Creatinine 0.89 (0.52-1.04) mg/dL Est GFR (CKD-EPI)AfAm 82 (>60 ml/min/1.73 sqM) Est GFR (CKD-EPI)NonAf 71 (>60 ml/min/1.73 sqM) Glucose 106 H (74-99) mg/dL Calcium 9.5 (8.4-10.2) mg/dL Phosphorus 3.7 (2.5-4.5) mg/dL Magnesium 2.1 (1.6-2.3) mg/dL Total Bilirubin 0.8 (0.2-1.3) mg/dL AST 28 (14-36) U/L ALT 29 (4-34) U/L Alkaline Phosphatase 84 (38-126) U/L Troponin I (0.000-0.034) ng/mL Total Protein 6.8 (6.3-8.2) g/dL Albumin 4.4 (3.5-5.0) g/dL Urine Color Colorless Urine Appearance Clear (Clear) Urine pH 6.0 (5.0-8.0) Ur Specific [place] 1.004 (1.001-1.035) Urine Protein Negative (Negative) Urine Glucose (UA) Negative (Negative) Urine Ketones Negative (Negative) Urine Blood Negative (Negative) Urine Nitrite Negative (Negative) Urine Bilirubin Negative (Negative) Urine Urobilinogen <2.0 (<2.0) mg/dL Ur Leukocyte Esterase Small H (Negative) Urine WBC 1 (0-5) /hpf Ur Squamous Epith Cells 2 (0-4) /hpf Urine Bacteria Rare H (None) /hpf 03/26/20 Range/Units 13:55 WBC (3.8-10.6) k/uL RBC (3.80-5.40) m/uL Hgb (11.4-16.0) gm/dL Hct (34.0-46.0) % MCV (80.0-100.0) fL MCH (25.0-35.0) pg MCHC (31.0-37.0) g/dL RDW (11.5-15.5) % Plt Count (150-450) k/uL Neutrophils % % Lymphocytes % % Monocytes % % Eosinophils % % Basophils % % Neutrophils # (1.3-7.7) k/uL Lymphocytes # (1.0-4.8) k/uL Monocytes # (0-1.0) k/uL Eosinophils # (0-0.7) k/uL Basophils # (0-0.2) k/uL Sodium (137-145) mmol/L Potassium (3.5-5.1) mmol/L Chloride (98-107) mmol/L Carbon Dioxide (22-30) mmol/L Anion Gap mmol/L BUN (7-17) mg/dL Creatinine (0.52-1.04) mg/dL Est GFR (CKD-EPI)AfAm (>60 ml/min/1.73 sqM) Est GFR (CKD-EPI)NonAf (>60 ml/min/1.73 sqM) Glucose (74-99) mg/dL Calcium (8.4-10.2) mg/dL Phosphorus (2.5-4.5) mg/dL Magnesium (1.6-2.3) mg/dL Total Bilirubin (0.2-1.3) mg/dL AST (14-36) U/L ALT (4-34) U/L Alkaline Phosphatase (38-126) U/L Troponin I <0.012 (0.000-0.034) ng/mL Total Protein (6.3-8.2) g/dL Albumin (3.5-5.0) g/dL Urine Color Urine Appearance (Clear) Urine pH (5.0-8.0) Ur Specific [place] (1.001-1.035) Urine Protein (Negative) Urine Glucose (UA) (Negative) Urine Ketones (Negative) Urine Blood (Negative) Urine Nitrite (Negative) Urine Bilirubin (Negative) Urine Urobilinogen (<2.0) mg/dL Ur Leukocyte Esterase (Negative) Urine WBC (0-5) /hpf Ur Squamous Epith Cells (0-4) /hpf Urine Bacteria (None) /hpf - Radiology Data Radiology results: report reviewed (CT brain negative for acute disease), image reviewed Disposition Clinical Impression: Dizziness Disposition: HOME SELF-CARE Condition: Fair Instructions (If sedation given, give patient instructions): Dizziness (ED) Is patient prescribed a controlled substance at d/c from ED?: No Referrals: Ben Pham MD [Primary Care Provider] - 1-2 days
[2020-03-26 14:11] LABS: Basophils % (A) 0 %; Eosinophils # (A) 0.1 k/uL (0-0.7); Eosinophils % (A) 2 %; HCT 43.3 % (34.0-46.0); HGB 14.6 gm/dL (11.4-16.0); Lymphocytes # (A) 1.2 k/uL (1.0-4.8); Lymphocytes % (A) 18 %; MCH 28.9 pg (25.0-35.0); MCHC 33.7 g/dL (31.0-37.0); MCV 85.8 fL (80.0-100.0); Mean Platelet Volume 7.7; Monocytes # (A) 0.4 k/uL (0-1.0); Monocytes % (A) 5 %; Neutrophils # (A) 4.9 k/uL (1.3-7.7); Neutrophils % (A) 72 %; Platelet Count 207 k/uL (150-450); RBC 5.05 m/uL (3.80-5.40); RDW 12.9 % (11.5-15.5); WBC 6.8 k/uL (3.8-10.6)
[2020-03-26 14:22] LABS: Appearance,Urine Clear (Clear); Bacteria,Urine Rare /hpf; Bilirubin,Urine Negative (Negative); Blood,Urine Negative (Negative); Color,Urine Colorless; Glucose,Urine (UA) Negative (Negative); Ketones,Urine Negative (Negative); Leukocyte Esterase,Urine Small (Negative); Nitrite,Urine Negative (Negative); Protein,Urine Negative (Negative); Specific Gravity,Urine 1.004 (1.001-1.035); Squamous Epithelial Cell,Urine 2 /hpf (0-4); Urobilinogen,Urine <2.0 mg/dL (<2.0); WBC,Urine 1 /hpf (0-5)
[2020-03-26 14:23] LABS: Albumin 4.4 g/dL (3.5-5.0); Calcium 9.5 mg/dL (8.4-10.2); Magnesium 2.1 mg/dL (1.6-2.3); Phosphorus 3.7 mg/dL (2.5-4.5); Potassium 4.2 mmol/L (3.5-5.1); Total Bilirubin 0.8 mg/dL (0.2-1.3); Total Protein 6.8 g/dL (6.3-8.2)
--- NOTE | 2020-03-26 15:34 | CT ---
EXAMINATION TYPE: CT brain wo con DATE OF EXAM: 03/26/2020 COMPARISON: 05/29/2019 HISTORY: Weakness. CT DLP: 1099.4 mGycm Automated exposure control for dose reduction was used. Ventricles have normal size. There is no mass effect nor midline shift. There is no sign of intracran ial hemorrhage. Calvarium is intact. There is no evidence of cerebral edema. IMPRESSION: Negative unenhanced head CT scan. No change.
[2020-03-26 15:58] VITALS: BP 107/63; PULSE 70
== END 2020-03-26 16:08 | disposition home or self-care (01) ==
LOC: EC 13:02
DX: R42 Dizziness and giddiness (principal); I10 Essential (primary) hypertension; J45.909 Unspecified asthma, uncomplicated; M79.7 Fibromyalgia; F41.9 Anxiety disorder, unspecified; F31.9 Bipolar disorder, unspecified; Z79.890 Hormone replacement therapy; Z79.899 Other long term (current) drug therapy; Z88.1 Allergy status to other antibiotic agents; Z88.8 Allergy status to other drugs, medicaments and biological substances; Z91.09 Other allergy status, other than to drugs and biological substances
CPT/HCPCS: 36415; 70450; 80053; 81001; 83735; 84100; 84484; 85025; 93005; 96360; 99285

== ENCOUNTER 2020-05-26 15:17 | Emergency (ER) | payer MEDICARE, OTHER ==
--- NOTE | 2020-05-26 16:01 | ED ---
General Adult HPI - General Chief complaint: Dizziness Stated complaint: Dizziness Time Seen by Provider: 05/26/20 15:25 Source: patient, EMS Mode of arrival: EMS Limitations: no limitations - History of Present Illness Initial comments: Dictation was produced using [employer] dictation software. please excuse any grammatical, word or spelling errors. This patient was cared for during a federal and state declared state of emergency secondary to Covid 19 Chief Complaint: 59-year-old female presents with dizziness and hypertension History of Present Illness: Elroy is a 59-year-old female presents today after an episode of dizziness and hypertension. Patient was recently evaluated by her primary care physician for elevated blood pressure possible anxiety. She is given prescription for Xanax. Patient states that today she was bending over when all was said she felt very dizzy. She went to rest and checked her blood pressure and she has systolic blood pressures between 180 and 200. Patient took a Xanax and recheck her blood pressure is not improved. Patient states has no complaints at this time. She states her dizziness is much improved. The ROS documented in this emergency department record has been reviewed and confirmed by me. Those systems with pertinent positive or negative responses have been documented in the HPI. All other systems are other negative and/or noncontributory. PHYSICAL EXAM: General Impression: Alert and oriented x3, not in acute distress HEENT: Normocephalic atraumatic, extra-ocular movements intact, pupils equal and reactive to light bilaterally, mucous membranes moist. Cardiovascular: Heart regular rate and rhythm Chest: Able to complete full sentences, no retractions, no tachypnea Abdomen: abdomen soft, non-tender, non-distended, no organomegaly Musculoskeletal: Pulses present and equal in all extremities, no peripheral edema Motor: no focal deficits noted Neurological: CN II-XII grossly intact, no focal motor or sensory deficits noted Skin: Intact with no visualized rashes Psych: Normal affect and mood ED course: 59-year-old female presents with elevated blood pressure and episode of positional dizziness. Vital signs upon arrival are within acceptable limits. Blood pressures 133/79. Laboratory evaluation obtained. CBC and metabolic panel is unremarkable. Patient observed in emergency department stable medical condition. Patient be discharged. She is given prescription for Antivert to take when necessary dizziness. She is advised follow-up with her primary care physician. EKG interpretation: Ventricular rate 66, normal sinus rhythm,. Interval 150, QRS 66, QTC 404. No NC prolongation, no QTC prolongation, no ST or T-wave changes noted. EKG compared to 03/26/2020 showing no changes. Overall, this EKG is unremarkable - Related Data Home Medications Medication Instructions Recorded Confirmed Levothyroxine Sodium [Synthroid] 25 mcg PO DAILY 09/18/15 09/07/19 Cholecalciferol (Vitamin D3) 4,000 unit PO DAILY PRN 01/12/19 09/07/19 [Vitamin D3] Cyanocobalamin (Vitamin B-12) 1,000 mcg PO DAILY PRN 01/12/19 09/07/19 [Vitamin B-12] lisinopriL 20 mg PO BID 01/12/19 09/07/19 Albuterol Sulfate [Albuterol 1 - 2 puff PO RT-Q4H PRN 05/16/19 09/07/19 Sulfate Hfa] Atorvastatin [Lipitor] 20 mg PO HS 05/16/19 09/07/19 Escitalopram [Lexapro] 5 mg PO DAILY 05/16/19 09/07/19 Fluticasone Nasal [place] [Flonase 1 spr EA NOSTRIL DAILY PRN 05/16/19 09/07/19 Nasal [place]] Meclizine [Antivert] 12.5 mg PO DAILY PRN 05/16/19 09/07/19 Propranolol [Inderal] 20 mg PO BID 05/16/19 09/07/19 LORazepam [Ativan] 0.5 mg PO BID PRN 09/07/19 09/07/19 buPROPion XL [Wellbutrin Xl] 150 mg PO DAILY 09/07/19 09/07/19 traZODone HCL [Desyrel] 50 mg PO HS 09/07/19 09/07/19 Previous Rx's Medication Instructions Recorded Meclizine [Antivert] 25 mg PO TID PRN #15 tab 05/26/20 Allergies Allergy/AdvReac Type Severity Reaction Status Date / Time niacin Allergy Swelling Verified 05/26/20 15:29 nitrofurantoin Allergy Unknown Verified 05/26/20 15:29 [From Macrobid] cyclobenzaprine AdvReac Unknown Verified 05/26/20 15:29 [From Flexeril] Review of Systems ROS Statement: Those systems with pertinent positive or pertinent negative responses have been documented in the HPI. ROS Other: All systems not noted in ROS Statement are negative. Past Medical History Past Medical History: Asthma, Fibromyalgia, Hyperlipidemia, Hypertension, Thyroid Disorder Additional Past Medical History / Comment(s): Rheumatoid Arthritis History of Any Multi-Drug Resistant Organisms: None Reported Past Surgical History: No Surgical Hx Reported Past Anesthesia/Blood Transfusion Reactions: No Reported Reaction Past Psychological History: Anxiety, Bipolar, Depression, PTSD Smoking Status: Never smoker Past Alcohol Use History: None Reported Past Drug Use History: Marijuana - Past Family History Father Family Medical History: Coronary Artery Disease (CAD) Mother Additional Family Medical History / Comment(s): Mother at the age of 2929 years old from alcholism. General Exam Limitations: no limitations Course Vital Signs 05/26/20 05/26/20 05/26/20 15:24 15:40 16:00 Temperature 98.6 F Pulse Rate 66 Respiratory 18 Rate Blood Pressure 133/79 122/68 113/67 O2 Sat by Pulse 97 Oximetry 05/26/20 05/26/20 16:20 16:40 Temperature Pulse Rate Respiratory Rate Blood Pressure 108/57 108/67 O2 Sat by Pulse Oximetry Medical Decision Making - Lab Data Result diagrams: 05/26/20 16:09 05/26/20 16:09 Lab Results 05/26/20 05/26/20 Range/Units 16:09 16:09 WBC 6.0 (3.8-10.6) k/uL RBC 4.78 (3.80-5.40) m/uL Hgb 14.7 (11.4-16.0) gm/dL Hct 42.0 (34.0-46.0) % MCV 87.8 (80.0-100.0) fL MCH 30.7 (25.0-35.0) pg MCHC 35.0 (31.0-37.0) g/dL RDW 12.5 (11.5-15.5) % Plt Count 192 (150-450) k/uL MPV 7.8 Neutrophils % 71 % Lymphocytes % 18 % Monocytes % 5 % Eosinophils % 3 % Basophils % 1 % Neutrophils # 4.2 (1.3-7.7) k/uL Lymphocytes # 1.1 (1.0-4.8) k/uL Monocytes # 0.3 (0-1.0) k/uL Eosinophils # 0.2 (0-0.7) k/uL Basophils # 0.1 (0-0.2) k/uL Sodium 139 (137-145) mmol/L Potassium 4.2 (3.5-5.1) mmol/L Chloride 107 (98-107) mmol/L Carbon Dioxide 26 (22-30) mmol/L Anion Gap 6 mmol/L BUN 13 (7-17) mg/dL Creatinine 0.90 (0.52-1.04) mg/dL Est GFR (CKD-EPI)AfAm 81 (>60 ml/min/1.73 sqM) Est GFR (CKD-EPI)NonAf 70 (>60 ml/min/1.73 sqM) Glucose 101 H (74-99) mg/dL Calcium 9.7 (8.4-10.2) mg/dL Disposition Clinical Impression: Dizziness Disposition: HOME SELF-CARE Condition: Good Instructions (If sedation given, give patient instructions): Dizziness (ED) Prescriptions: Meclizine [Antivert] 25 mg PO TID PRN #15 tab PRN Reason: dizziness Is patient prescribed a controlled substance at d/c from ED?: No Referrals: Ben Pham MD [Primary Care Provider] - 1-2 days Time of Disposition: 17:01
[2020-05-26 16:48] LABS: Basophils # (A) 0.1 k/uL (0-0.2); Basophils % (A) 1 %; Eosinophils # (A) 0.2 k/uL (0-0.7); Eosinophils % (A) 3 %; HGB 14.7 gm/dL (11.4-16.0); Lymphocytes # (A) 1.1 k/uL (1.0-4.8); Lymphocytes % (A) 18 %; MCH 30.7 pg (25.0-35.0); MCV 87.8 fL (80.0-100.0); Mean Platelet Volume 7.8; Monocytes # (A) 0.3 k/uL (0-1.0); Monocytes % (A) 5 %; Neutrophils # (A) 4.2 k/uL (1.3-7.7); Neutrophils % (A) 71 %; Platelet Count 192 k/uL (150-450); RBC 4.78 m/uL (3.80-5.40); RDW 12.5 % (11.5-15.5)
[2020-05-26 16:51] LABS: Calcium 9.7 mg/dL (8.4-10.2); Potassium 4.2 mmol/L (3.5-5.1)
[2020-05-26 17:15] VITALS: BP 115/69; PULSE 63; RESP 16; TEMP 98
== END 2020-05-26 17:15 | disposition home or self-care (01) ==
LOC: EC 15:17
DX: R42 Dizziness and giddiness (principal); I10 Essential (primary) hypertension; F41.9 Anxiety disorder, unspecified; F31.9 Bipolar disorder, unspecified; J45.909 Unspecified asthma, uncomplicated; E78.5 Hyperlipidemia, unspecified; E07.9 Disorder of thyroid, unspecified; M79.7 Fibromyalgia; M06.9 Rheumatoid arthritis, unspecified; Z79.890 Hormone replacement therapy; Z79.899 Other long term (current) drug therapy; Z88.1 Allergy status to other antibiotic agents; Z88.8 Allergy status to other drugs, medicaments and biological substances
CPT/HCPCS: 36415; 80048; 85025; 93005; 99284

== ENCOUNTER 2020-08-11 10:43 | Emergency (ER) | payer MEDICARE, OTHER ==
[2020-08-11 10:49] VITALS: RESP 18; TEMP 99
[2020-08-11] MEDS ORDERED: SODIUM CHLORIDE 0.9% 1,000 ML IV STA (11:01)
--- NOTE | 2020-08-11 11:07 | ED ---
Dizziness HPI - General Chief Complaint: Dizziness Stated Complaint: Dizziness Time Seen by Provider: 08/11/20 10:54 Source: patient, EMS, RN notes reviewed Mode of arrival: EMS Limitations: no limitations - History of Present Illness Initial Comments: Patient is a 59-year-old female that came to the emergency department complaining of dizziness. She noted that she got dizzy after she got up and started moving around room. She had several other complaints such as a dry cough after watching a, the she had a dry spot in the back of her throat. He n oted dizziness has been going on for a little bit in ENT can find anything wrong with her inner ear. Is in no apparent distress or pain while sitting up in bed answering questions or during the exam. She takes several medications for high blood pressure high cholesterol anxiety. She notes that she tries not to over take her Xanax that she's been taking for 40 years because it is addictive and o nly takes it when she really needs it. She denied any chest pain shortness of breath headache nausea vomiting diarrhea constipation fever fatigue chills change in vision change in hearing. - Related Data Home Medications Medication Instructions Recorded Confirmed Levothyroxine Sodium [Synthroid] 25 mcg PO DAILY 09/18/15 08/11/20 lisinopriL 20 mg PO BID 01/12/19 08/11/20 Albuterol Sulfate [Albuterol 1 puff INHALATION RT-QID PRN 05/16/19 08/11/20 Sulfate Hfa] Atorvastatin [Lipitor] 20 mg PO HS 05/16/19 08/11/20 Meclizine [Antivert] 12.5 mg PO BID PRN 05/16/19 08/11/20 Propranolol [Inderal] 20 mg PO BID 05/16/19 08/11/20 ALPRAZolam [Xanax] 0.5 mg PO TID PRN 08/11/20 08/11/20 Cholecalciferol (Vitamin D3) 125 mcg PO DAILY 08/11/20 08/11/20 [Vitamin D3 (5000 Iu)] Escitalopram [Lexapro] 20 mg PO DAILY 08/11/20 08/11/20 Fluticasone Propionate [Flovent 2 puff INHALATION RT-BID 08/11/20 08/11/20 Hfa 220 mcg] Loratadine [Claritin] 10 mg PO DAILY PRN 08/11/20 08/11/20 Magnesium Oxide [Mag-Ox] 250 mg PO TUTHSA@2100 08/11/20 08/11/20 Ondansetron HCl [Zofran] 4 mg PO Q8H PRN 08/11/20 08/11/20 Vitamin B Complex 1 cap PO DAILY 08/11/20 08/11/20 Allergies Allergy/AdvReac Type Severity Reaction Status Date / Time niacin Allergy Rash/Hives Verified 08/11/20 11:59 cyclobenzaprine AdvReac Lethargic Verified 08/11/20 11:59 [From Flexeril] nitrofurantoin AdvReac Confusion Verified 08/11/20 11:59 [From Macrobid] Review of Systems ROS Statement: Those systems with pertinent positive or pertinent negative responses have been documented in the HPI. ROS Other: All systems not noted in ROS Statement are negative. Past Medical History Past Medical History: Asthma, Fibromyalgia, Hyperlipidemia, Hypertension, Thyroid Disorder Additional Past Medical History / Comment(s): Rheumatoid Arthritis History of Any Multi-Drug Resistant Organisms: None Reported Past Surgical History: No Surgical Hx Reported Past Anesthesia/Blood Transfusion Reactions: No Reported Reaction Past Psychological History: Anxiety, Bipolar, Depression, PTSD Smoking Status: Never smoker Past Alcohol Use History: None Reported Past Drug Use History: Marijuana - Past Family History Father Family Medical History: Coronary Artery Disease (CAD) Mother Additional Family Medical History / Comment(s): Mother at the age of 2929 years old from alcholism. General Exam Limitations: no limitations General appearance: alert, in no apparent distress, obese Head exam: Present: atraumatic, normocephalic, normal inspection Eye exam: Present: normal appearance, PERRL, EOMI. Absent: scleral icterus, conjunctival injection, periorbital swelling ENT exam: Present: normal exam, mucous membranes moist Neck exam: Present: normal inspection. Absent: tenderness, meningismus, lymphadenopathy Respiratory exam: Present: normal lung sounds bilaterally. Absent: respiratory distress, wheezes, rales, rhonchi, stridor Cardiovascular Exam: Present: regular rate, normal rhythm, normal heart sounds. Absent: systolic murmur, diastolic murmur, rubs, gallop, clicks GI/Abdominal exam: Present: soft, normal bowel sounds. Absent: distended, tenderness, guarding, rebound, rigid Extremities exam: Present: normal inspection, full ROM, normal capillary refill. Absent: tenderness, pedal edema, joint swelling, calf tenderness Back exam: Present: normal inspection Neurological exam: Present: alert, oriented X3, CN II-XII intact Psychiatric exam: Present: normal affect, normal mood Skin exam: Present: warm, dry, intact, normal color. Absent: rash Course Vital Signs 08/11/20 08/11/20 10:44 11:08 Temperature 99 F Pulse Rate 64 Pulse Rate [ 67 Sitting Support Engineer] Pulse Rate [ 76 Standing Support Engineer ] Pulse Rate [ 62 Supine Support Engineer] Respiratory 18 Rate Blood Pressure 133/83 Blood Pressure 132/64 [Right Arm Sitting] Blood Pressure 149/88 [Right Arm Standing] Blood Pressure 137/75 [Right Arm Supine] O2 Sat by Pulse 97 Oximetry EKG Findings - EKG Comments: EKG Findings:: Ventricular rate 60 bpm, IN interval 150 ms, QRS duration 74 ms, QT/QTC 398/398 ms, PRT axes 66/71/37. Normal sinus rhythm normal ECG - EKG Results: EKG: interpreted by TRACI LEMOS, sinus rhythm Medical Decision Making - Medical Decision Making 59-year-old female complaining of dizziness. Labs, EKG, bus driver/monitor ordered. Orthostatic vitals ordered Patient denied any need for any medication or nausea medication. 1 L of normal saline given as bolus. Orthostatic vitals laying down blood pressure 137/75 heart rate 62, sitting up blood pressure 132/64 heart rate 67, standing blood pressure 149/88 heart rate 76 Labs were unremarkable Case discussed with Dr. Mahajan, it was decided the patient could discharge home. - Lab Data Result diagrams: 08/11/20 11:02 08/11/20 11:02 Lab Results 08/11/20 08/11/20 08/11/20 Range/Units 11:02 11:02 11:02 WBC 5.7 (3.8-10.6) k/uL RBC 4.81 (3.80-5.40) m/uL Hgb 14.2 (11.4-16.0) gm/dL Hct 42.1 (34.0-46.0) % MCV 87.5 (80.0-100.0) fL MCH 29.5 (25.0-35.0) pg MCHC 33.7 (31.0-37.0) g/dL RDW 12.9 (11.5-15.5) % Plt Count 187 (150-450) k/uL MPV 7.7 Neutrophils % 66 % Lymphocytes % 22 % Monocytes % 7 % Eosinophils % 3 % Basophils % 1 % Neutrophils # 3.8 (1.3-7.7) k/uL Lymphocytes # 1.2 (1.0-4.8) k/uL Monocytes # 0.4 (0-1.0) k/uL Eosinophils # 0.2 (0-0.7) k/uL Basophils # 0.0 (0-0.2) k/uL Sodium 140 (137-145) mmol/L Potassium 4.5 (3.5-5.1) mmol/L Chloride 106 (98-107) mmol/L Carbon Dioxide 26 (22-30) mmol/L Anion Gap 8 mmol/L BUN 15 (7-17) mg/dL Creatinine 0.83 (0.52-1.04) mg/dL Est GFR (CKD-EPI)AfAm 89 (>60 ml/min/1.73 sqM) Est GFR (CKD-EPI)NonAf 77 (>60 ml/min/1.73 sqM) Glucose 107 H (74-99) mg/dL Calcium 9.2 (8.4-10.2) mg/dL Total Bilirubin 0.7 (0.2-1.3) mg/dL AST 31 (14-36) U/L ALT 34 (4-34) U/L Alkaline Phosphatase 72 (38-126) U/L Troponin I <0.012 (0.000-0.034) ng/mL Total Protein 6.8 (6.3-8.2) g/dL Albumin 4.2 (3.5-5.0) g/dL Urine Color Urine Appearance (Clear) Urine pH (5.0-8.0) Ur Specific [place] (1.001-1.035) Urine Protein (Negative) Urine Glucose (UA) (Negative) Urine Ketones (Negative) Urine Blood (Negative) Urine Nitrite (Negative) Urine Bilirubin (Negative) Urine Urobilinogen (<2.0) mg/dL Ur Leukocyte Esterase (Negative) 08/11/20 Range/Units 11:25 WBC (3.8-10.6) k/uL RBC (3.80-5.40) m/uL Hgb (11.4-16.0) gm/dL Hct (34.0-46.0) % MCV (80.0-100.0) fL MCH (25.0-35.0) pg MCHC (31.0-37.0) g/dL RDW (11.5-15.5) % Plt Count (150-450) k/uL MPV Neutrophils % % Lymphocytes % % Monocytes % % Eosinophils % % Basophils % % Neutrophils # (1.3-7.7) k/uL Lymphocytes # (1.0-4.8) k/uL Monocytes # (0-1.0) k/uL Eosinophils # (0-0.7) k/uL Basophils # (0-0.2) k/uL Sodium (137-145) mmol/L Potassium (3.5-5.1) mmol/L Chloride (98-107) mmol/L Carbon Dioxide (22-30) mmol/L Anion Gap mmol/L BUN (7-17) mg/dL Creatinine (0.52-1.04) mg/dL Est GFR (CKD-EPI)AfAm (>60 ml/min/1.73 sqM) Est GFR (CKD-EPI)NonAf (>60 ml/min/1.73 sqM) Glucose (74-99) mg/dL Calcium (8.4-10.2) mg/dL Total Bilirubin (0.2-1.3) mg/dL AST (14-36) U/L ALT (4-34) U/L Alkaline Phosphatase (38-126) U/L Troponin I (0.000-0.034) ng/mL Total Protein (6.3-8.2) g/dL Albumin (3.5-5.0) g/dL Urine Color Colorless Urine Appearance Clear (Clear) Urine pH 6.5 (5.0-8.0) Ur Specific [place] 1.001 (1.001-1.035) Urine Protein Negative (Negative) Urine Glucose (UA) Negative (Negative) Urine Ketones Negative (Negative) Urine Blood Negative (Negative) Urine Nitrite Negative (Negative) Urine Bilirubin Negative (Negative) Urine Urobilinogen <2.0 (<2.0) mg/dL Ur Leukocyte Esterase Negative (Negative) Disposition Clinical Impression: Dehydration, Dizziness Disposition: HOME SELF-CARE Condition: Stable Instructions (If sedation given, give patient instructions): Dizziness (ED) Additional Instructions: Please return to the Emergency Department if symptoms worsen or any other concerns. Follow-up with primary care 1-2 days. Drink plenty of fluids, around 100-120 ounces per day. Is patient prescribed a controlled substance at d/c from ED?: No Referrals: Ben Pham MD [Primary Care Provider] - 1-2 days Time of Disposition: 12:07
[2020-08-11 11:14] LABS: Basophils % (A) 1 %; Eosinophils # (A) 0.2 k/uL (0-0.7); Eosinophils % (A) 3 %; HCT 42.1 % (34.0-46.0); HGB 14.2 gm/dL (11.4-16.0); Lymphocytes # (A) 1.2 k/uL (1.0-4.8); Lymphocytes % (A) 22 %; MCH 29.5 pg (25.0-35.0); MCHC 33.7 g/dL (31.0-37.0); MCV 87.5 fL (80.0-100.0); Mean Platelet Volume 7.7; Monocytes # (A) 0.4 k/uL (0-1.0); Monocytes % (A) 7 %; Neutrophils # (A) 3.8 k/uL (1.3-7.7); Neutrophils % (A) 66 %; Platelet Count 187 k/uL (150-450); RBC 4.81 m/uL (3.80-5.40); RDW 12.9 % (11.5-15.5); WBC 5.7 k/uL (3.8-10.6)
[2020-08-11 11:29] LABS: Albumin 4.2 g/dL (3.5-5.0); Calcium 9.2 mg/dL (8.4-10.2); Potassium 4.5 mmol/L (3.5-5.1); Total Bilirubin 0.7 mg/dL (0.2-1.3); Total Protein 6.8 g/dL (6.3-8.2)
[2020-08-11 11:33] LABS: Appearance,Urine Clear (Clear); Bilirubin,Urine Negative (Negative); Blood,Urine Negative (Negative); Color,Urine Colorless; Glucose,Urine (UA) Negative (Negative); Ketones,Urine Negative (Negative); Leukocyte Esterase,Urine Negative (Negative); Nitrite,Urine Negative (Negative); PH, Urine 6.5 (5.0-8.0); Protein,Urine Negative (Negative); Specific Gravity,Urine 1.001 (1.001-1.035); Urobilinogen,Urine <2.0 mg/dL (<2.0)
[2020-08-11 12:34] VITALS: BP 120/64; PULSE 67
== END 2020-08-11 12:32 | disposition home or self-care (01) ==
LOC: EC 10:43
DX: E86.0 Dehydration (principal); F41.9 Anxiety disorder, unspecified; F31.9 Bipolar disorder, unspecified; F43.10 Post-traumatic stress disorder, unspecified; J45.909 Unspecified asthma, uncomplicated; E78.5 Hyperlipidemia, unspecified; I10 Essential (primary) hypertension; E07.9 Disorder of thyroid, unspecified; M06.9 Rheumatoid arthritis, unspecified; Z79.51 Long term (current) use of inhaled steroids; Z79.890 Hormone replacement therapy; Z79.899 Other long term (current) drug therapy; Z88.1 Allergy status to other antibiotic agents; Z88.8 Allergy status to other drugs, medicaments and biological substances
CPT/HCPCS: 36415; 80053; 81003; 84484; 85025; 93005; 96360; 99284

== ENCOUNTER 2020-08-26 20:45 | Emergency (ER) | payer MEDICARE, OTHER ==
[2020-08-26 20:50] VITALS: TEMP 97.5
[2020-08-26] MEDS ORDERED: SODIUM CHLORIDE 0.9% 1,000 ML IV STA (21:23)
--- NOTE | 2020-08-26 21:44 | ED ---
General Adult HPI - General Chief complaint: Headache Stated complaint: Headache, Dizziness Time Seen by Provider: 08/26/20 20:53 Source: patient Mode of arrival: wheelchair Limitations: no limitations - History of Present Illness Initial comments: 59-year-old female patient presents to the emergency department today for evaluation of headache, dizziness, disorientation. States she's been having these symptoms for the last couple of days. States never she moves her head around she becomes dizzy and disoriented. Denies blurred or double vision. Sta yue that she just generally doesn't feel well. States she has had similar symptoms in the past but this seems worse. States that she did have evaluation of her carotid arteries about a year ago. States that she has been doing tele- visit with her physician but has had no in person visits. She denies fever or chills. Denies any nausea or vomiting. Denies chest pain or shortness of breath. States that she has been having some high blood pressures do know she has anxiety. Anxiety medication doesn't seem to be helping. Patient denies any recent rash, cough, abdominal pain, diarrhea, constipation, back pain, hematuria, dysuria, urinary urgency, urinary frequency, or any other complaints. - Related Data Home Medications Medication Instructions Recorded Confirmed Levothyroxine Sodium [Synthroid] 25 mcg PO DAILY 09/18/15 08/11/20 lisinopriL 20 mg PO BID 01/12/19 08/11/20 Albuterol Sulfate [Albuterol 1 puff INHALATION RT-QID PRN 05/16/19 08/11/20 Sulfate Hfa] Atorvastatin [Lipitor] 20 mg PO HS 05/16/19 08/11/20 Meclizine [Antivert] 12.5 mg PO BID PRN 05/16/19 08/11/20 Propranolol [Inderal] 20 mg PO BID 05/16/19 08/11/20 ALPRAZolam [Xanax] 0.5 mg PO TID PRN 08/11/20 08/11/20 Cholecalciferol (Vitamin D3) 125 mcg PO DAILY 08/11/20 08/11/20 [Vitamin D3 (5000 Iu)] Escitalopram [Lexapro] 20 mg PO DAILY 08/11/20 08/11/20 Fluticasone Propionate [Flovent 2 puff INHALATION RT-BID 08/11/20 08/11/20 Hfa 220 mcg] Loratadine [Claritin] 10 mg PO DAILY PRN 08/11/20 08/11/20 Magnesium Oxide [Mag-Ox] 250 mg PO TUTHSA@2100 08/11/20 08/11/20 Ondansetron HCl [Zofran] 4 mg PO Q8H PRN 08/11/20 08/11/20 Vitamin B Complex 1 cap PO DAILY 08/11/20 08/11/20 Allergies Allergy/AdvReac Type Severity Reaction Status Date / Time niacin Allergy Rash/Hives Verified 08/26/20 20:50 cyclobenzaprine AdvReac Lethargic Verified 08/26/20 20:50 [From Flexeril] nitrofurantoin AdvReac Confusion Verified 08/26/20 20:50 [From Macrobid] Review of Systems ROS Statement: Those systems with pertinent positive or pertinent negative responses have been documented in the HPI. ROS Other: All systems not noted in ROS Statement are negative. Past Medical History Past Medical History: Asthma, Fibromyalgia, Hyperlipidemia, Hypertension, Thyroid Disorder Additional Past Medical History / Comment(s): Rheumatoid Arthritis History of Any Multi-Drug Resistant Organisms: None Reported Past Surgical History: No Surgical Hx Reported Past Anesthesia/Blood Transfusion Reactions: No Reported Reaction Past Psychological History: Anxiety, Bipolar, Depression, PTSD Smoking Status: Never smoker Past Alcohol Use History: None Reported Past Drug Use History: Marijuana - Past Family History Father Family Medical History: Coronary Artery Disease (CAD) Mother Additional Family Medical History / Comment(s): Mother at the age of 2929 years old from alcholism. General Exam Limitations: no limitations General appearance: alert, in no apparent distress, other (Physical well- developed, well-nourished adult female patient in no acute distress. Vital signs upon presentation are temperature 97.5F, pulse 87, respirations 20, blood pressure 170/86, pulse ox 98% on room air.) Eye exam: Present: normal appearance, PERRL, EOMI. Absent: scleral icterus, conjunctival injection, nystagmus, periorbital swelling Neck exam: Present: normal inspection. Absent: tenderness, meningismus, lymphad enopathy Respiratory exam: Present: normal lung sounds bilaterally. Absent: respiratory distress, wheezes, rales, rhonchi, stridor Cardiovascular Exam: Present: regular rate, normal rhythm, normal heart sounds. Absent: systolic murmur, diastolic murmur, rubs, gallop, clicks GI/Abdominal exam: Present: soft, normal bowel sounds. Absent: distended, tenderness, guarding, rebound, rigid Neurological exam: Present: alert, oriented X3, CN II-XII intact Psychiatric exam: Present: normal affect, normal mood Skin exam: Present: warm, dry, intact, normal color. Absent: rash Course Vital Signs 08/26/20 08/26/20 20:46 23:08 Temperature 97.5 F L Pulse Rate 87 61 Respiratory 20 16 Rate Blood Pressure 170/86 112/69 O2 Sat by Pulse 98 98 Oximetry EKG Findings - EKG Comments: EKG Findings:: EKG obtained at 2049 shows normal sinus with a ventricular rate of 69, UT interval 150, QRS duration 74, QT 384, QTC 411. No evidence of ST elevation or depression. Medical Decision Making - Medical Decision Making 59-year-old female patient percents to the emergency department today for evaluation of dizziness and disorientation. Physical examination is unremarkable. She is neurologically intact with no focal deficits. Labs reviewed and are unremarkable. EKG is unremarkable. Did discuss findings and results with the patient. She'll be discharged. Her primary care physician discuss possible referral to neurology. Return parameters were discussed in detail. She verbalizes understanding and agrees with this plan. Case discussed with my attending Dr. Rubio. - Lab Data Result diagrams: 08/26/20 21:46 08/26/20 21:46 Lab Results 08/26/20 08/26/20 08/26/20 Range/Units 21:46 21:46 21:46 WBC 6.1 (3.8-10.6) k/uL RBC 4.68 (3.80-5.40) m/uL Hgb 14.2 (11.4-16.0) gm/dL Hct 40.5 (34.0-46.0) % MCV 86.6 (80.0-100.0) fL MCH 30.4 (25.0-35.0) pg MCHC 35.1 (31.0-37.0) g/dL RDW 12.6 (11.5-15.5) % Plt Count 193 (150-450) k/uL MPV 7.9 Neutrophils % 66 % Lymphocytes % 23 % Monocytes % 6 % Eosinophils % 3 % Basophils % 1 % Neutrophils # 4.0 (1.3-7.7) k/uL Lymphocytes # 1.4 (1.0-4.8) k/uL Monocytes # 0.3 (0-1.0) k/uL Eosinophils # 0.2 (0-0.7) k/uL Basophils # 0.0 (0-0.2) k/uL Sodium 138 (137-145) mmol/L Potassium 4.0 (3.5-5.1) mmol/L Chloride 105 (98-107) mmol/L Carbon Dioxide 26 (22-30) mmol/L Anion Gap 7 mmol/L BUN 19 H (7-17) mg/dL Creatinine 0.88 (0.52-1.04) mg/dL Est GFR (CKD-EPI)AfAm 83 (>60 ml/min/1.73 sqM) Est GFR (CKD-EPI)NonAf 72 (>60 ml/min/1.73 sqM) Glucose 113 H (74-99) mg/dL Plasma Lactic Acid Dragan (0.7-2.0) mmol/L Calcium 9.7 (8.4-10.2) mg/dL Total Bilirubin 0.5 (0.2-1.3) mg/dL AST 28 (14-36) U/L ALT 28 (4-34) U/L Alkaline Phosphatase 76 (38-126) U/L Troponin I (0.000-0.034) ng/mL Total Protein 6.6 (6.3-8.2) g/dL Albumin 4.2 (3.5-5.0) g/dL Urine Color Colorless Urine Appearance Clear (Clear) Urine pH 6.0 (5.0-8.0) Ur Specific [place] 1.006 (1.001-1.035) Urine Protein Negative (Negative) Urine Glucose (UA) Negative (Negative) Urine Ketones Negative (Negative) Urine Blood Negative (Negative) Urine Nitrite Negative (Negative) Urine Bilirubin Negative (Negative) Urine Urobilinogen <2.0 (<2.0) mg/dL Ur Leukocyte Esterase Small H (Negative) Urine RBC 1 (0-5) /hpf Urine WBC 3 (0-5) /hpf Ur Squamous Epith Cells 2 (0-4) /hpf Urine Bacteria Rare H (None) /hpf 02/27/21 02/27/21 Range/Units 21:46 21:46 WBC (3.8-10.6) k/uL RBC (3.80-5.40) m/uL Hgb (11.4-16.0) gm/dL Hct (34.0-46.0) % MCV (80.0-100.0) fL MCH (25.0-35.0) pg MCHC (31.0-37.0) g/dL RDW (11.5-15.5) % Plt Count (150-450) k/uL MPV Neutrophils % % Lymphocytes % % Monocytes % % Eosinophils % % Basophils % % Neutrophils # (1.3-7.7) k/uL Lymphocytes # (1.0-4.8) k/uL Monocytes # (0-1.0) k/uL Eosinophils # (0-0.7) k/uL Basophils # (0-0.2) k/uL Sodium (137-145) mmol/L Potassium (3.5-5.1) mmol/L Chloride (98-107) mmol/L Carbon Dioxide (22-30) mmol/L Anion Gap mmol/L BUN (7-17) mg/dL Creatinine (0.52-1.04) mg/dL Est GFR (CKD-EPI)AfAm (>60 ml/min/1.73 sqM) Est GFR (CKD-EPI)NonAf (>60 ml/min/1.73 sqM) Glucose (74-99) mg/dL Plasma Lactic Acid [place]agan 0.7 (0.7-2.0) mmol/L Calcium (8.4-10.2) mg/dL Total Bilirubin (0.2-1.3) mg/dL AST (14-36) U/L ALT (4-34) U/L Alkaline Phosphatase (38-126) U/L Troponin I <0.012 (0.000-0.034) ng/mL Total Protein (6.3-8.2) g/dL Albumin (3.5-5.0) g/dL Urine Color Urine Appearance (Clear) Urine pH (5.0-8.0) Ur Specific [place] (1.001-1.035) Urine Protein (Negative) Urine Glucose (UA) (Negative) Urine Ketones (Negative) Urine Blood (Negative) Urine Nitrite (Negative) Urine Bilirubin (Negative) Urine Urobilinogen (<2.0) mg/dL Ur Leukocyte Esterase (Negative) Urine RBC (0-5) /hpf Urine WBC (0-5) /hpf Ur Squamous Epith Cells (0-4) /hpf Urine Bacteria (None) /hpf - Radiology Data Radiology results: report reviewed, image reviewed Two-view x-ray of the chest is obtained. Report was reviewed in its entirety. Impression by Dr. Hilton shows no active cardiopulmonary disease. Normal heart. Disposition Clinical Impression: Dizziness Disposition: HOME SELF-CARE Condition: Good Instructions (If sedation given, give patient instructions): Dizziness (ED) Additional Instructions: Follow-up through primary care physician for recheck as soon as possible, if you're not happy with your physician obtain a new one. Return to the emergency department for any new, worsening, or concerning symptoms. Is patient prescribed a controlled substance at d/c from ED?: No Referrals: Ben Pham MD [Primary Care Provider] - 1-2 days Time of Disposition: 22:45
[2020-08-26 21:57] LABS: Basophils % (A) 1 %; Eosinophils # (A) 0.2 k/uL (0-0.7); Eosinophils % (A) 3 %; HCT 40.5 % (34.0-46.0); HGB 14.2 gm/dL (11.4-16.0); Lymphocytes # (A) 1.4 k/uL (1.0-4.8); Lymphocytes % (A) 23 %; MCH 30.4 pg (25.0-35.0); MCHC 35.1 g/dL (31.0-37.0); MCV 86.6 fL (80.0-100.0); Mean Platelet Volume 7.9; Monocytes # (A) 0.3 k/uL (0-1.0); Monocytes % (A) 6 %; Neutrophils % (A) 66 %; Platelet Count 193 k/uL (150-450); RBC 4.68 m/uL (3.80-5.40); RDW 12.6 % (11.5-15.5); WBC 6.1 k/uL (3.8-10.6)
[2020-08-26 22:06] LABS: Albumin 4.2 g/dL (3.5-5.0); Calcium 9.7 mg/dL (8.4-10.2); Total Bilirubin 0.5 mg/dL (0.2-1.3); Total Protein 6.6 g/dL (6.3-8.2)
--- NOTE | 2020-08-26 22:09 | XR ---
EXAMINATION TYPE: XR chest 2V DATE OF EXAM: 08/26/2020 COMPARISON: 05/27/2019 HISTORY: Weakness TECHNIQUE: FINDINGS: Heart and mediastinum are normal. Lungs are clear. Diaphragm is normal. Bony thorax is inta ct. There is some spurring in the thoracic spine. IMPRESSION: No active cardiopulmonary disease. Normal heart.
[2020-08-26 22:11] LABS: Appearance,Urine Clear (Clear); Bacteria,Urine Rare /hpf; Bilirubin,Urine Negative (Negative); Blood,Urine Negative (Negative); Color,Urine Colorless; Glucose,Urine (UA) Negative (Negative); Ketones,Urine Negative (Negative); Leukocyte Esterase,Urine Small (Negative); Nitrite,Urine Negative (Negative); Protein,Urine Negative (Negative); RBC,Urine 1 /hpf (0-5); Specific Gravity,Urine 1.006 (1.001-1.035); Squamous Epithelial Cell,Urine 2 /hpf (0-4); Urobilinogen,Urine <2.0 mg/dL (<2.0); WBC,Urine 3 /hpf (0-5)
[2020-08-26 23:09] VITALS: BP 112/69; PULSE 61; RESP 16
== END 2020-08-26 23:15 | disposition home or self-care (01) ==
LOC: EC 20:45
DX: R42 Dizziness and giddiness (principal); R41.0 Disorientation, unspecified; J45.909 Unspecified asthma, uncomplicated; I10 Essential (primary) hypertension; M79.7 Fibromyalgia; E07.9 Disorder of thyroid, unspecified; E78.5 Hyperlipidemia, unspecified; F41.9 Anxiety disorder, unspecified; F32.9 Major depressive disorder, single episode, unspecified; Z79.51 Long term (current) use of inhaled steroids; Z79.899 Other long term (current) drug therapy; Z79.890 Hormone replacement therapy; Z91.09 Other allergy status, other than to drugs and biological substances; Z88.8 Allergy status to other drugs, medicaments and biological substances; Z88.1 Allergy status to other antibiotic agents
CPT/HCPCS: 36415; 71046; 80053; 81001; 83605; 84484; 85025; 93005; 96360; 99284

== ENCOUNTER → 2020-09-18 | Day surgery (SDC) | payer MEDICARE, OTHER ==
[2020-09-14 10:59] VITALS: BMI 41.9
[~2020-09-18] MED LIST: SODIUM CHLORIDE 0.9% 1,000 ML IV SCH
[2020-09-18 10:50] VITALS: BP 143/77; PULSE 71; RESP 16; TEMP 98.7
--- NOTE | 2020-09-18 16:57 | P.EPPROC ---
- EP Procedure Note Electrophysiology Procedure Note: Diagnosis Recurrent presyncope Twelve-lead EKG shows normal heart rates, 65 beats a minute, normal NC narrow QRS normal ST segments Normal QT interval no delta waves no epsilon waves Tilt table test per protocol Baseline blood pressure 141/64 mmHg Baseline heart rate 56 beats a minute Immediate drop in blood pressure to 125/58 mmHg without any change in heart rate. This was associated with mild dizziness Within a minute her blood pressure normalized and remained stable thereafter. This was also associated with resolution of dizziness There was no evidence for neurocardiogenic syncope or dysautonomia At the end of the procedure she was laid supine Impression Normal 12-lead EKG Mild, brief but symptomatic orthostatic hypotension with immediate resolution No evidence for neurocardiogenic syncope or dysautonomia
== END ==
LOC: CATHEP 10:24
PROVIDERS: ATTEND Internal Medicine Clinical Cardiac Electrophysiology
DX: R55 Syncope and collapse (principal); I10 Essential (primary) hypertension; E78.5 Hyperlipidemia, unspecified; Q23.1 Congenital insufficiency of aortic valve; E78.00 Pure hypercholesterolemia, unspecified; R73.03 Prediabetes; E66.9 Obesity, unspecified; Z68.41 Body mass index [BMI] 40.0-44.9, adult; Z79.899 Other long term (current) drug therapy; Z79.890 Hormone replacement therapy; Z88.8 Allergy status to other drugs, medicaments and biological substances; Z82.49 Family history of ischemic heart disease and other diseases of the circulatory system
CPT/HCPCS: 93660

== ENCOUNTER 2020-09-23 08:48 | Observation (INO) | payer MEDICARE, OTHER ==
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
[2020-09-23] MEDS ORDERED: SODIUM CHLORIDE 0.9% 1,000 ML IV STA (09:01)
[2020-09-23] MEDS ORDERED: LORazepam 2 MG/ML INJ IV PRN ×3 (09:16)
[2020-09-23] MEDS ORDERED: THIAMINE 100 MG/ML 2 ML VIAL IVPB STA (09:16)
[2020-09-23 09:42] LABS: Basophils % (A) 0 %; Eosinophils # (A) 0.2 k/uL (0-0.7); Eosinophils % (A) 3 %; HCT 40.5 % (34.0-46.0); HGB 14.3 gm/dL (11.4-16.0); Lymphocytes % (A) 15 %; MCH 30.6 pg (25.0-35.0); MCHC 35.4 g/dL (31.0-37.0); MCV 86.3 fL (80.0-100.0); Mean Platelet Volume 7.6; Monocytes # (A) 0.4 k/uL (0-1.0); Monocytes % (A) 5 %; Neutrophils # (A) 4.9 k/uL (1.3-7.7); Neutrophils % (A) 75 %; Platelet Count 171 k/uL (150-450); RBC 4.69 m/uL (3.80-5.40); RDW 12.7 % (11.5-15.5); WBC 6.5 k/uL (3.8-10.6)
[2020-09-23 09:52] LABS: ALT 28 U/L (4-34); AST 26 U/L (14-36); African American GFR (CKD) >90 (>60 ml/min/1.73 sqM); Albumin 4.1 g/dL (3.5-5.0); Alkaline Phosphatase 79 U/L (38-126); Anion Gap 7 mmol/L; Blood Urea Nitrogen 13 mg/dL (7-17); Calcium 9.3 mg/dL (8.4-10.2); Carbon Dioxide 27 mmol/L (22-30); Chloride 108 mmol/L (98-107); Creatine Kinase 49 U/L (30-135); Glucose 108 mg/dL (74-99); Magnesium 2.2 mg/dL (1.6-2.3); Non-African American GFR(CKD) 78 (>60 ml/min/1.73 sqM); Phosphorus 3.3 mg/dL (2.5-4.5); Potassium 4.3 mmol/L (3.5-5.1); Sodium 142 mmol/L (137-145); Total Bilirubin 0.6 mg/dL (0.2-1.3); Total Protein 6.6 g/dL (6.3-8.2)
[2020-09-23] MEDS ORDERED: NALOXONE 0.4 MG/ML 1 ML VIAL IV PRN ×2 (10:23→18:05)
--- NOTE | 2020-09-23 11:27 | CT ---
EXAMINATION TYPE: CT brain wo con DATE OF EXAM: 09/23/2020 COMPARISON: 03/26/2020 HISTORY: Dizziness CT DLP: 1055.[address] of the brain was performed. The ventricles, basal cisterns and sulci overlying the cerebral convexities demonstrate mild enlargem ent. There is no evidence for intracranial hemorrhage or sulcal effacement. There is decreased attenuation about the periventricular white matter and deep white matter of both c erebral hemispheres, compatible with chronic small vessel ischemia. Differential diagnosis does inclu de demyelination. No mass effects are seen.No midline shift. Osseous calvarium is intact. If symptoms persist consider MRI. IMPRESSION: 1. Age related atrophic and chronic small vessel ischemic change without acute intracranial process s een at this time.
[2020-09-23] MEDS: SODIUM CHLORIDE 0.9% 1,000 ML IV SCH ×2 (11:42→16:56)
--- NOTE | 2020-09-23 12:01 | CT ---
EXAMINATION TYPE: CT angio head neck DATE OF EXAM: 09/23/2020 COMPARISON: None HISTORY: Dizziness CT DLP: 616.2 mGycm CONTRAST: Performed with IV Contrast, patient injected with 65 mL of Isovue 370. Combination Contrast CTA cervical carotids and [place] CTA cervical carotids with 3-D recons truction Contrast CTA of the cervical carotids was performed 3-D reconstruction imaging obtained at a separate workstation. Right carotid system: Mild plaque is seen of the right common carotid artery. There is mild plaque a lso noted at the carotid bulb and proximal ICA. No significant diameter reduction. ECA is patent. Right vertebral artery appears unremarkable. Left carotid system: Mild plaque is seen of the left common carotid artery. There is mild plaque als o noted at the carotid bulb and proximal ICA. No significant diameter reduction. ECA is patent. Lef t vertebral artery appears unremarkable. IMPRESSION: 1. No significant diameter reduction to account for the patient's symptoms. CTA [place] with 3-D reconstruction Contrast CTA of the [place] was performed 3-D reconstruction imaging obtained at a separate workstation. Vertebrobasilar system as well as intracranial portions of the internal carotid arteries and their ma [place] tributaries are patent. I do not see evidence for sizable aneurysm or vascular malformation. Pl ease note MRI provides greater sensitivity and specificity. Visualized brain appears grossly unremar kable. IMPRESSION: 1. No significant abnormality.
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
[2020-09-23] MEDS: THIAMINE 100 MG TAB PO SCH (17:04)
[2020-09-23 17:44] LABS: Folate, Serum 7.3 ng/mL
[2020-09-23] MEDS ORDERED: ALPRAZolam 0.5 MG TAB PO PRN (18:08)
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
[2020-09-23] MEDS: lisinopriL 20 MG TAB PO SCH (20:25)
[2020-09-23] MEDS: ATORVASTATIN 20 MG TAB PO SCH (20:25)
[2020-09-23] MEDS: PROPRANOLOL 20 MG TAB PO SCH (20:25)
[2020-09-23] MEDS: clonazePAM 0.5 MG TAB PO SCH (20:25)
[2020-09-24] MEDS: LEVOTHYROXINE 25 MCG TAB PO SCH (05:37)
[2020-09-24] MEDS: CHOLECALCIFEROL 25 MCG (1000 IU) TABLET PO SCH (08:38)
[2020-09-24] MEDS: MULTIVITAMINS, THERA 1 EACH TAB PO SCH (08:39)
[2020-09-24] MEDS: THIAMINE 100 MG TAB PO SCH ×2 (08:39→17:52)
[2020-09-24] MEDS: ESCITALOPRAM 20 MG TAB PO SCH (08:39)
[2020-09-24] MEDS: clonazePAM 0.5 MG TAB PO SCH ×2 (08:39→20:37)
[2020-09-24] MEDS: lisinopriL 20 MG TAB PO SCH ×2 (09:26→20:37)
[2020-09-24] MEDS: PROPRANOLOL 20 MG TAB PO SCH ×2 (09:26→20:37)
[2020-09-24] MEDS: FOLIC ACID 1 MG TAB PO SCH ×2 (12:45→13:54)
[2020-09-24] MEDS: FLUDROCORTISONE 0.1 MG TAB PO SCH (12:45)
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
[2020-09-24] MEDS: SODIUM CHLORIDE 0.9% 1,000 ML IV SCH (14:24)
--- NOTE | 2020-09-24 15:33 | P.PN ---
Subjective Progress Note Date: 09/24/20 Principal diagnosis: Dizziness Patient is still the same. She continues to have episodic dizziness. She is worried to get up and walk as she is afraid she will feel dizzy again. Objective - Vital Signs Vital signs: Vital Signs Temp 97.9 F 09/24/20 15:00 Pulse 78 09/24/20 15:00 Resp 16 09/24/20 15:00 BP 149/81 09/24/20 15:00 Pulse Ox 94 L 09/24/20 15:00 Intake & Output 09/23/20 09/24/20 09/24/20 18:59 06:59 18:59 Intake Total 510 880 Balance 510 880 Weight 99.79 kg Intake: IV 260 Sodium Chloride 0.9% 1, 260 000 ml @ 130 mls/hr IV . Q7H42M STA Rx#:[id number] Intake, IV Titration 60 Amount Sodium Chloride 0.9% 1, 60 000 ml @ 20 mls/hr IV . Q24H FLAVIA Rx#:[id number] Oral 250 820 Other: Voiding Method Toilet Toilet # Voids 1 2 3 - Exam Constitutional: No acute distress, conversant, pleasant Eyes:Anicteric sclerae, moist conjunctiva, no lid-lag, PERRLA, ENMT: Oropharynx clear, no erythema, exudates Neck: Supple, FROM, no masses, or JVD, No carotid bruits, No thyromegaly Lungs: Clear to auscultation, Clear to percussion, Normal respiratory effort, no accessory muscle use Cardiovascular: Heart regular in rate and rhythm, No murmurs, gallops, or rubs, No peripheral edema Abdominal: Soft, Nontender, no guarding, rebound or rigidity, Normoactive bowel sounds, No hepatomegaly, No splenomegaly, No palpable mass Skin: Normal temperature, tone, texture, turgor, no induration, No subcutaneous nodules, No rash, lesions, No ulcers Extremities: No digital cyanosis, No clubbing, Pedal pulses intact and symmetrical, Radial pulses intact and symmetrical, No calf tenderness Psychiatric: Alert and oriented to person, place and time, appropriate affect, intact judgement Neuro: Muscles Strength 5/5 in all 4 extremities, Sensation to light touch grossly present throughout, Cranial nerves II-XII grossly intact, no focal sensory deficits - Labs CBC & Chem 7: 09/23/20 09:27 09/23/20 09:27 Assessment and Plan Plan: Episodic dizziness R/o seizures or intracranial abnormality D/w neuro, MRI was done one year ago in the office, no acute findings were dis covered, no need to repeat at this time. EEG in am Palpitations/orthostatic hypotension Currently has an event monitor Cardiology added florinef. D/c midodrine. Possible obstructive sleep apnea and restless leg syndrome Need outpatient sleep study Chronic Asthma Fibromyalgia, Hyperlipidemia, Hypertension, Rheumatoid Arthritis (RA), Hypothyroidism All stable resume meds
--- NOTE | 2020-09-24 18:13 | P.PN ---
Subjective Progress Note Date: 09/24/20 This is a Tele-Neurology follow-up performed on the patient today. Patient states her dizziness is much improved. She has been switched from Xanax to Klonopin 0.5 mg twice a day, that she has taken in the past. She is able to walk without any issue. Patient has some anxiety, as she is concerned about driving, cannot clean her house, cannot go for fishing, or groceries because the dizziness. Patient had an MRI of the brain performed a year ago which showed some "lesions". Patient states that she was seeing Dr. Bardales, and now has an appointment to see a neurologist Dr. Oconnor in the near future. Patient states she has PTSD, anxiety, major depressive disorder and bipolar disorder. Objective - Vital Signs Vital signs: Vital Signs Temp 97.9 F 09/24/20 15:00 Pulse 78 09/24/20 15:00 Resp 16 09/24/20 15:00 BP 149/81 09/24/20 15:00 Pulse Ox 94 L 09/24/20 15:00 Intake & Output 09/23/20 09/24/20 09/24/20 18:59 06:59 18:59 Intake Total 510 880 Balance 510 880 Weight 99.79 kg Intake: IV 260 Sodium Chloride 0.9% 1, 260 000 ml @ 130 mls/hr IV . Q7H42M STA Rx#:[id number] Intake, IV Titration 60 Amount Sodium Chloride 0.9% 1, 60 000 ml @ 20 mls/hr IV . Q24H FLAVIA Rx#:[id number] Oral 250 820 Other: Voiding Method Toilet Toilet # Voids 1 2 3 - Exam Patient is a middle aged female, in no distress. She is alert and awake, appears somewhat anxious. Denies any headache. Denies any numbness tingling focal weakness. Her dizziness is much improved. Patient is walking without any device, without any balance issue. - Labs CBC & Chem 7: 09/23/20 09:27 09/23/20 09:27 Assessment and Plan Assessment: * Chronic recurrent vertigo, probable BPPV. As symptoms last only for a few minutes and mainly occurs when changing position, therefore Meniere's disease appears less likely. * Anxiety disorder * Obesity Plan: * Patient had normal CTA of head and neck, with no evidence of vertebrobasilar insufficiency. * B12 1507, folate 6.7. Recommended folate replacement. * EEG has been ordered. Pending. * Continue Klonopin 0.5 mg twice a day. * Discontinue Xanax. * Suggest outpatient PSG to rule out RLS or BUSHRA. * Neurologically clear for discharge if the EEG comes back negative.
[2020-09-24] MEDS: ATORVASTATIN 20 MG TAB PO SCH (20:37)
[2020-09-25] MEDS: LEVOTHYROXINE 25 MCG TAB PO SCH (06:08)
[2020-09-25 08:01] VITALS: RESP 16
[2020-09-25] MEDS: CHOLECALCIFEROL 25 MCG (1000 IU) TABLET PO SCH (10:04)
[2020-09-25] MEDS: MULTIVITAMINS, THERA 1 EACH TAB PO SCH (10:04)
[2020-09-25] MEDS: clonazePAM 0.5 MG TAB PO SCH (10:04)
[2020-09-25] MEDS: ESCITALOPRAM 20 MG TAB PO SCH (10:05)
[2020-09-25] MEDS: FOLIC ACID 1 MG TAB PO SCH (10:05)
[2020-09-25] MEDS: lisinopriL 20 MG TAB PO SCH (10:05)
[2020-09-25] MEDS: THIAMINE 100 MG TAB PO SCH (10:05)
[2020-09-25] MEDS: PROPRANOLOL 20 MG TAB PO SCH (10:05)
[2020-09-25] MEDS: FLUDROCORTISONE 0.1 MG TAB PO SCH (10:05)
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
[2020-09-25 15:12] VITALS: BP 149/69; PULSE 73; TEMP 97.6
--- NOTE | 2020-09-25 15:18 | EEG ---
ELECTROENCEPHALOGRAM REPORT DATE OF SERVICE: 09/25/2020 CLINICAL HISTORY: This is a 59-year-old woman with chronic recurrent vertigo. This video EEG is obtained to evaluate for seizure and epileptiform activity. RELEVANT MEDICATION: The patient is not on any antiepileptic drugs. EEG TYPE: A routine 21 channel EEG is performed with video using the 10/20 electrode placement system. DESCRIPTION: Wakefulness is only obtained. During wakefulness, there is a posterior dominant rhythm that is well modulated of 6-7 hertz activity. There is no physiological stage II sleep. There is no focal slowing seen. Interictal and ictal none. ACTIVATION PROCEDURE: Photic stimulation did evoke a posterior driving response over bilateral hemisphere. There is no abnormality seen during photic stimulation. Hyperventilation is not performed. CLINICAL INTERPRETATION: This is an abnormal routine EEG. The background slowing is suggestive of mild to moderate encephalopathy of unspecified etiology. There are no focal slowing, epileptiform discharge or seizure on the EEG. Clinical correlation is recommended. LEILA / ALICEN: [id number] / MTDD
== END 2020-09-25 15:35 | disposition home or self-care (01) ==
LOC: EC 08:48 → 6NMEDSUR 10:23
PROVIDERS: ADMIT Internal Medicine; ATTEND Internal Medicine
DX: R42 Dizziness and giddiness (principal); R00.2 Palpitations; I95.1 Orthostatic hypotension; R00.1 Bradycardia, unspecified; E03.9 Hypothyroidism, unspecified; E78.5 Hyperlipidemia, unspecified; I10 Essential (primary) hypertension; J45.909 Unspecified asthma, uncomplicated; M06.9 Rheumatoid arthritis, unspecified; M79.7 Fibromyalgia; R11.0 Nausea; R41.0 Disorientation, unspecified; F43.10 Post-traumatic stress disorder, unspecified; E66.9 Obesity, unspecified; Z68.41 Body mass index [BMI] 40.0-44.9, adult; E72.12 Methylenetetrahydrofolate reductase deficiency; F31.9 Bipolar disorder, unspecified; F41.9 Anxiety disorder, unspecified; Z79.890 Hormone replacement therapy; Z79.51 Long term (current) use of inhaled steroids; Z79.899 Other long term (current) drug therapy; Z88.1 Allergy status to other antibiotic agents; Z88.8 Allergy status to other drugs, medicaments and biological substances; Z87.828 Personal history of other (healed) physical injury and trauma; Z20.822 Contact with and (suspected) exposure to COVID-19; Z82.49 Family history of ischemic heart disease and other diseases of the circulatory system; Z81.1 Family history of alcohol abuse and dependence
CPT/HCPCS: 96361 ×3; 93005 ×2; 96374; 99285; 36415; 95816; 83880; 80053; 82607; 82550; 82746; 83735; 84100; 84443; 84484; 85025; 87635; 70496; 70450; 70498; G0378 ×3; J3411; Q9967

== ENCOUNTER 2020-10-10 01:43 | Emergency (ER) | payer MEDICARE, OTHER ==
[2020-10-10] MEDS ORDERED: SODIUM CHLORIDE 0.9% 1,000 ML IV STA (02:16)
--- NOTE | 2020-10-10 02:42 | ED ---
Recheck HPI - General Chief Complaint: Dizziness Stated Complaint: hypertension Time Seen by Provider: 10/10/20 01:51 Source: EMS, RN notes reviewed, old records reviewed Mode of arrival: EMS Limitations: no limitations - History of Present Illness Initial Comments: This is a 60-year-old female to the ER for evaluation. Patient states when she lays down at night to sleep she has dizziness headache elevated blood pressure. She otherwise has no recent travel history sick contacts no trauma no fevers. Patient is concerned over blood pressure does admit that it does cause her anxiety. She does deny any chest pain or shortness of breath MD Complaint: other (Recheck headache blood pressure and anxiety) -: days(s) Returns Today for: other (Blood pressure elevation) Symptoms Since Prior Visit: no new symptoms Context: other (none) Associated Symptoms: none Treatments Prior to Arrival: other (none) - Related Data Home Medications Medication Instructions Recorded Confirmed Levothyroxine Sodium [Synthroid] 25 mcg PO DAILY 09/18/15 09/23/20 lisinopriL 20 mg PO BID 01/12/19 09/23/20 Atorvastatin [Lipitor] 20 mg PO HS 05/16/19 09/23/20 Propranolol [Inderal] 20 mg PO BID 05/16/19 09/23/20 Cholecalciferol (Vitamin D3) 125 mcg PO DAILY 08/11/20 09/23/20 [Vitamin D3 (5000 Iu)] Escitalopram [Lexapro] 20 mg PO DAILY 08/11/20 09/23/20 Fluticasone Propionate [Flovent 2 puff INHALATION RT-BID 08/11/20 09/23/20 Hfa 220 mcg] Fluticasone Nasal [place] [Flonase 1 - 2 spr EA NOSTRIL DAILY PRN 09/23/20 09/23/20 Nasal [place]] Zinc 50 mg PO DAILY 09/23/20 09/23/20 Previous Rx's Medication Instructions Recorded Fludrocortisone [Florinef] 0.1 mg PO DAILY 30 Days #30 tablet 09/25/20 clonazePAM [KlonoPIN] 0.5 mg PO BID 30 Days #60 tab 09/25/20 Meclizine [Antivert] 25 mg PO TID PRN #12 tab 10/12/20 Allergies Allergy/AdvReac Type Severity Reaction Status Date / Time niacin Allergy Rash/Hives Verified 10/12/20 07:04 cyclobenzaprine AdvReac Lethargic Verified 10/12/20 07:04 [From Flexeril] nitrofurantoin AdvReac Confusion Verified 10/12/20 07:04 [From Macrobid] Review of Systems ROS Statement: Those systems with pertinent positive or pertinent negative responses have been documented in the HPI. ROS Other: All systems not noted in ROS Statement are negative. Past Medical History Past Medical History: Asthma, Blood Disorder, Fibromyalgia, Hyperlipidemia, Hypertension, Rheumatoid Arthritis (RA), Syncope, Thyroid Disorder Additional Past Medical History / Comment(s): episodes of feeling dizzy, weak, disoriented on & off, worse lately, MTHFR gene, see Dr Huston H & P History of Any Multi-Drug Resistant Organisms: None Reported Past Surgical History: No Surgical Hx Reported Past Anesthesia/Blood Transfusion Reactions: No Reported Reaction Additional Past Anesthesia/Blood Transfusion Reaction / Comment(s): no family problems with anesthesia Past Psychological History: Anxiety, Bipolar, Depression, Panic Disorder, PTSD Smoking Status: Never smoker Past Alcohol Use History: None Reported Past Drug Use History: Marijuana - Past Family History Father Family Medical History: Coronary Artery Disease (CAD) Mother Additional Family Medical History / Comment(s): Mother at the age of 2929 years old from alcholism. General Exam Limitations: no limitations General appearance: alert, in no apparent distress Head exam: Present: atraumatic, normocephalic, normal inspection Eye exam: Present: normal appearance, PERRL, EOMI. Absent: scleral icterus, conjunctival injection, periorbital swelling ENT exam: Present: normal exam, mucous membranes moist Neck exam: Present: normal inspection. Absent: tenderness, meningismus, lympha denopathy Respiratory exam: Present: normal lung sounds bilaterally. Absent: respiratory distress, wheezes, rales, rhonchi, stridor Cardiovascular Exam: Present: regular rate, normal rhythm, normal heart sounds. Absent: systolic murmur, diastolic murmur, rubs, gallop, clicks GI/Abdominal exam: Present: soft, normal bowel sounds. Absent: distended, tenderness, guarding, rebound, rigid Extremities exam: Present: normal inspection, full ROM, normal capillary refill. Absent: tenderness, pedal edema, joint swelling, calf tenderness Back exam: Present: normal inspection Neurological exam: Present: alert, oriented X3, CN II-XII intact Psychiatric exam: Present: normal affect, normal mood Skin exam: Present: warm, dry, intact, normal color. Absent: rash Course Vital Signs 10/10/20 10/10/20 10/10/20 01:48 03:38 05:58 Temperature 97.9 F 98.3 F Pulse Rate 62 51 L 56 L Respiratory 20 18 18 Rate Blood Pressure 163/76 123/76 113/59 O2 Sat by Pulse 100 98 98 Oximetry - Reevaluation(s) Reevaluation #1: Medical record is reviewed Patient symptoms are significantly improved here in the emergency department Patient family informed of results, questions answered Medical Decision Making - Medical Decision Making 60 female for dizziness nausea elevated blood pressure headache. No significant cause found here in the ER patient can be discharged home - Lab Data Result diagrams: 10/10/20 03:05 10/10/20 03:05 Lab Results 10/10/20 10/10/20 10/10/20 Range/Units 03:05 03:05 03:05 WBC 3.9 (3.8-10.6) k/uL RBC 4.46 (3.80-5.40) m/uL Hgb 13.5 (11.4-16.0) gm/dL Hct 38.1 (34.0-46.0) % MCV 85.3 (80.0-100.0) fL MCH 30.2 (25.0-35.0) pg MCHC 35.4 (31.0-37.0) g/dL RDW 12.6 (11.5-15.5) % Plt Count 146 L (150-450) k/uL MPV 7.9 Neutrophils % 66 % Lymphocytes % 21 % Monocytes % 8 % Eosinophils % 2 % Basophils % 0 % Neutrophils # 2.6 (1.3-7.7) k/uL Lymphocytes # 0.8 L (1.0-4.8) k/uL Monocytes # 0.3 (0-1.0) k/uL Eosinophils # 0.1 (0-0.7) k/uL Basophils # 0.0 (0-0.2) k/uL PT 9.7 (9.0-12.0) sec INR 0.9 (<1.2) APTT 23.3 (22.0-30.0) sec Sodium 139 (137-145) mmol/L Potassium 3.6 (3.5-5.1) mmol/L Chloride 107 (98-107) mmol/L Carbon Dioxide 27 (22-30) mmol/L Anion Gap 5 mmol/L BUN 13 (7-17) mg/dL Creatinine 0.80 (0.52-1.04) mg/dL Est GFR (CKD-EPI)AfAm >90 (>60 ml/min/1.73 sqM) Est GFR (CKD-EPI)NonAf 81 (>60 ml/min/1.73 sqM) Glucose 107 H (74-99) mg/dL Plasma Lactic Acid Dragan (0.7-2.0) mmol/L Calcium 8.8 (8.4-10.2) mg/dL Phosphorus 4.2 (2.5-4.5) mg/dL Magnesium 2.1 (1.6-2.3) mg/dL Total Bilirubin 0.4 (0.2-1.3) mg/dL AST 26 (14-36) U/L ALT 26 (4-34) U/L Alkaline Phosphatase 77 (38-126) U/L Creatine Kinase 62 (30-135) U/L Troponin I (0.000-0.034) ng/mL NT-Pro-B Natriuret Pep pg/mL Total Protein 6.0 L (6.3-8.2) g/dL Albumin 3.6 (3.5-5.0) g/dL TSH 5.410 H (0.465-4.680) mIU/L 10/10/20 10/10/20 10/10/20 Range/Units 03:05 03:05 03:05 WBC (3.8-10.6) k/uL RBC (3.80-5.40) m/uL Hgb (11.4-16.0) gm/dL Hct (34.0-46.0) % MCV (80.0-100.0) fL MCH (25.0-35.0) pg MCHC (31.0-37.0) g/dL RDW (11.5-15.5) % Plt Count (150-450) k/uL MPV Neutrophils % % Lymphocytes % % Monocytes % % Eosinophils % % Basophils % % Neutrophils # (1.3-7.7) k/uL Lymphocytes # (1.0-4.8) k/uL Monocytes # (0-1.0) k/uL Eosinophils # (0-0.7) k/uL Basophils # (0-0.2) k/uL PT (9.0-12.0) sec INR (<1.2) APTT (22.0-30.0) sec Sodium (137-145) mmol/L Potassium (3.5-5.1) mmol/L Chloride (98-107) mmol/L Carbon Dioxide (22-30) mmol/L Anion Gap mmol/L BUN (7-17) mg/dL Creatinine (0.52-1.04) mg/dL Est GFR (CKD-EPI)AfAm (>60 ml/min/1.73 sqM) Est GFR (CKD-EPI)NonAf (>60 ml/min/1.73 sqM) Glucose (74-99) mg/dL Plasma Lactic Acid Dragan 0.9 (0.7-2.0) mmol/L Calcium (8.4-10.2) mg/dL Phosphorus (2.5-4.5) mg/dL Magnesium (1.6-2.3) mg/dL Total Bilirubin (0.2-1.3) mg/dL AST (14-36) U/L ALT (4-34) U/L Alkaline Phosphatase (38-126) U/L Creatine Kinase (30-135) U/L Troponin I <0.012 (0.000-0.034) ng/mL NT-Pro-B Natriuret Pep 165 pg/mL Total Protein (6.3-8.2) g/dL Albumin (3.5-5.0) g/dL TSH (0.465-4.680) mIU/L - EKG Data -: EKG Interpreted by Me (EKG shows sinus bradycardia 55 DC 156 QRS 74 QTc 415) Disposition Clinical Impression: Dizziness Disposition: HOME SELF-CARE Condition: Good Instructions (If sedation given, give patient instructions): Dizziness (ED) Is patient prescribed a controlled substance at d/c from ED?: No Referrals: Ben Pham MD [Primary Care Provider] - 1-2 days
[2020-10-10 03:39] VITALS: RESP 18
[2020-10-10 03:43] LABS: Basophils % (A) 0 %; Eosinophils # (A) 0.1 k/uL (0-0.7); Eosinophils % (A) 2 %; HCT 38.1 % (34.0-46.0); HGB 13.5 gm/dL (11.4-16.0); Lymphocytes # (A) 0.8 k/uL (1.0-4.8); Lymphocytes % (A) 21 %; MCH 30.2 pg (25.0-35.0); MCHC 35.4 g/dL (31.0-37.0); MCV 85.3 fL (80.0-100.0); Mean Platelet Volume 7.9; Monocytes # (A) 0.3 k/uL (0-1.0); Monocytes % (A) 8 %; Neutrophils # (A) 2.6 k/uL (1.3-7.7); Neutrophils % (A) 66 %; Platelet Count 146 k/uL (150-450); RBC 4.46 m/uL (3.80-5.40); RDW 12.6 % (11.5-15.5); WBC 3.9 k/uL (3.8-10.6)
[2020-10-10 04:04] LABS: ALT 26 U/L (4-34); AST 26 U/L (14-36); African American GFR (CKD) >90 (>60 ml/min/1.73 sqM); Albumin 3.6 g/dL (3.5-5.0); Alkaline Phosphatase 77 U/L (38-126); Anion Gap 5 mmol/L; Blood Urea Nitrogen 13 mg/dL (7-17); Calcium 8.8 mg/dL (8.4-10.2); Carbon Dioxide 27 mmol/L (22-30); Chloride 107 mmol/L (98-107); Creatine Kinase 62 U/L (30-135); Glucose 107 mg/dL (74-99); Magnesium 2.1 mg/dL (1.6-2.3); Non-African American GFR(CKD) 81 (>60 ml/min/1.73 sqM); Phosphorus 4.2 mg/dL (2.5-4.5); Potassium 3.6 mmol/L (3.5-5.1); Sodium 139 mmol/L (137-145); Total Bilirubin 0.4 mg/dL (0.2-1.3)
[2020-10-10 04:34] LABS: INR 0.9 (<1.2); Partial Thromboplastin Time 23.3 sec (22.0-30.0); Prothrombin Time 9.7 sec (9.0-12.0)
[2020-10-10 06:17] VITALS: BP 113/59; PULSE 56; TEMP 98.3
== END 2020-10-10 05:58 | disposition home or self-care (01) ==
LOC: EC 01:43
DX: I10 Essential (primary) hypertension (principal); J45.909 Unspecified asthma, uncomplicated; M79.7 Fibromyalgia; E78.5 Hyperlipidemia, unspecified; M06.9 Rheumatoid arthritis, unspecified; F41.9 Anxiety disorder, unspecified; F32.9 Major depressive disorder, single episode, unspecified; F12.90 Cannabis use, unspecified, uncomplicated; Z79.51 Long term (current) use of inhaled steroids; Z79.899 Other long term (current) drug therapy
CPT/HCPCS: 36415; 80053; 82550; 83605; 83735; 83880; 84100; 84443; 84484; 85025; 85610; 85730; 93005; 99284

== ENCOUNTER 2020-10-12 00:23 | Emergency (ER) | payer MEDICARE, OTHER ==
[2020-10-12] MEDS ORDERED: SODIUM CHLORIDE 0.9% 500 ML 500 ML IV STA (00:39)
[2020-10-12 00:57] LABS: Appearance,Urine Clear (Clear); Bilirubin,Urine Negative (Negative); Blood,Urine Negative (Negative); Color,Urine Colorless; Glucose,Urine (UA) Negative (Negative); Ketones,Urine Negative (Negative); Leukocyte Esterase,Urine Negative (Negative); Nitrite,Urine Negative (Negative); Protein,Urine Negative (Negative); Urobilinogen,Urine <2.0 mg/dL (<2.0)
--- NOTE | 2020-10-12 00:57 | ED ---
Dizziness HPI - General Chief Complaint: Dizziness Stated Complaint: Dizziness Time Seen by Provider: 10/12/20 00:27 Source: patient, EMS Mode of arrival: EMS Limitations: no limitations - History of Present Illness Initial Comments: Patient is a 59-year-old female presenting to the emergency department via EMS with complaints of an episode of dizziness that happened just prior to arrival. Patient states she was laying on her left side in bed when she went to cuff turner of a over to her right side she had an episode of lightheadedness and dizziness. She does have history of vertigo, she's been dealing with this issue for many months. She has been seen multiple times in the ER for same complaint. She states currently she is asymptomatic, she is no longer dizzy. She denies any pains. She denies any changes in her vision, no nausea or vomiting. She denies any recent fever or chills. She has no further complaints at this time. Upon arrival to the ER, her vital signs are stable. - Related Data Home Medications Medication Instructions Recorded Confirmed Levothyroxine Sodium [Synthroid] 25 mcg PO DAILY 09/18/15 09/23/20 lisinopriL 20 mg PO BID 01/12/19 09/23/20 Atorvastatin [Lipitor] 20 mg PO HS 05/16/19 09/23/20 Propranolol [Inderal] 20 mg PO BID 05/16/19 09/23/20 Cholecalciferol (Vitamin D3) 125 mcg PO DAILY 08/11/20 09/23/20 [Vitamin D3 (5000 Iu)] Escitalopram [Lexapro] 20 mg PO DAILY 08/11/20 09/23/20 Fluticasone Propionate [Flovent 2 puff INHALATION RT-BID 08/11/20 09/23/20 Hfa 220 mcg] Fluticasone Nasal [place] [Flonase 1 - 2 spr EA NOSTRIL DAILY PRN 09/23/20 1 Nasal [place]] Zinc 50 mg PO DAILY 09/23/20 09/23/20 Previous Rx's Medication Instructions Recorded Fludrocortisone [Florinef] 0.1 mg PO DAILY 30 Days #30 tablet 09/25/20 clonazePAM [KlonoPIN] 0.5 mg PO BID 30 Days #60 tab 09/25/20 Allergies Allergy/AdvReac Type Severity Reaction Status Date / Time niacin Allergy Rash/Hives Verified 09/23/20 11:14 cyclobenzaprine AdvReac Lethargic Verified 09/23/20 11:14 [From Flexeril] nitrofurantoin AdvReac Confusion Verified 09/23/20 11:14 [From Macrobid] Review of Systems ROS Statement: Those systems with pertinent positive or pertinent negative responses have been documented in the HPI. ROS Other: All systems not noted in ROS Statement are negative. Past Medical History Past Medical History: Asthma, Blood Disorder, Fibromyalgia, Hyperlipidemia, Hypertension, Rheumatoid Arthritis (RA), Syncope, Thyroid Disorder Additional Past Medical History / Comment(s): episodes of feeling dizzy, weak, disoriented on & off, worse lately, MTHFR gene, see Dr Huston H & P History of Any Multi-Drug Resistant Organisms: None Reported Past Surgical History: No Surgical Hx Reported Past Anesthesia/Blood Transfusion Reactions: No Reported Reaction Additional Past Anesthesia/Blood Transfusion Reaction / Comment(s): no family problems with anesthesia Past Psychological History: Anxiety, Bipolar, Depression, Panic Disorder, PTSD Smoking Status: Never smoker Past Alcohol Use History: None Reported Past Drug Use History: Marijuana - Past Family History Father Family Medical History: Coronary Artery Disease (CAD) Mother Additional Family Medical History / Comment(s): Mother at the age of 2929 years old from alcholism. General Exam - General Exam Comments Initial Comments: GENERAL: Patient is well-developed and well-nourished. Patient is nontoxic and in no acute distress. HEAD: Atraumatic, normocephalic. EYES: Pupils equal round and reactive to light, extraocular movements intact, sclera anicteric, conjunctiva are normal. Eyelids were unremarkable. ENT: TMs normal, nares patent, oropharynx clear without exudates. Moist mucous membranes. NECK: Normal range of motion, supple without lymphadenopathy or JVD. LUNGS: Unlabored respirations. Breath sounds clear to auscultation bilaterally and equal. No wheezes rales or rhonchi. HEART: Regular rate and rhythm without murmurs, rubs or gallops. ABDOMEN: Soft, nontender, normoactive bowel sounds. No guarding, no rebound. No masses appreciated. : Deferred MUSCULOSKELETAL: Normal extremities with adequate strength and normal range of motion, no pitting or edema. No clubbing or cyanosis. NEUROLOGICAL: Patient is alert and oriented x 3. Motor and sensory are also intact. Cranial nerves II through XII grossly intact. Symmetrical smile. Normal speech, normal gait. PSYCH: Normal mood, normal affect. SKIN: Warm, Dry, normal turgor, no rashes or lesions noted. Limitations: no limitations Course Vital Signs 10/12/20 10/12/20 00:26 01:23 Temperature 98.4 F 98.0 F Pulse Rate 55 L 56 L Respiratory 18 16 Rate Blood Pressure 148/75 122/61 O2 Sat by Pulse 97 97 Oximetry EKG Findings - EKG Comments: EKG Findings:: Sinus bradycardia, otherwise normal ECG, no signs of acute ischemia. Ventricular rate 58, ME interval 180, QT 434. Medical Decision Making - Medical Decision Making Patient is 59-year-old female here via EMS with complaints of an episode of dizziness that happened prior to arrival. Her vital signs are stable. No falls or trauma. She's been seen multiple times in the ER for same complaint. She is currently asymptomatic. Her EKG is normal. Labs are all stable including normal troponin, urine is normal. Patient has remained a symptomatically the ER. I discussed with patient that she can follow up with her primary care physician and/or her neurologist regarding these continued symptoms. Patient is stable for discharge. Patient is in agreement with this plan of care. Return parameters were discussed with the patient and they verbalized understanding. Case discussed with Dr. Yeung. - Lab Data Result diagrams: 10/12/20 00:41 10/12/20 00:41 Lab Results 10/12/20 10/12/20 10/12/20 Range/Units 00:41 00:41 00:41 WBC 4.8 (3.8-10.6) k/uL RBC 4.33 (3.80-5.40) m/uL Hgb 12.7 (11.4-16.0) gm/dL Hct 37.5 (34.0-46.0) % MCV 86.7 (80.0-100.0) fL MCH 29.3 (25.0-35.0) pg MCHC 33.8 (31.0-37.0) g/dL RDW 13.2 (11.5-15.5) % Plt Count 169 (150-450) k/uL MPV 8.6 Neutrophils % 64 % Lymphocytes % 24 % Monocytes % 6 % Eosinophils % 2 % Basophils % 1 % Neutrophils # 3.1 (1.3-7.7) k/uL Lymphocytes # 1.2 (1.0-4.8) k/uL Monocytes # 0.3 (0-1.0) k/uL Eosinophils # 0.1 (0-0.7) k/uL Basophils # 0.0 (0-0.2) k/uL Sodium 138 (137-145) mmol/L Potassium 3.3 L (3.5-5.1) mmol/L Chloride 107 (98-107) mmol/L Carbon Dioxide 24 (22-30) mmol/L Anion Gap 7 mmol/L BUN 13 (7-17) mg/dL Creatinine 0.76 (0.52-1.04) mg/dL Est GFR (CKD-EPI)AfAm >90 (>60 ml/min/1.73 sqM) Est GFR (CKD-EPI)NonAf 86 (>60 ml/min/1.73 sqM) Glucose 120 H (74-99) mg/dL Calcium 8.6 (8.4-10.2) mg/dL Total Bilirubin 0.4 (0.2-1.3) mg/dL AST 23 (14-36) U/L ALT 20 (4-34) U/L Alkaline Phosphatase 68 (38-126) U/L Troponin I (0.000-0.034) ng/mL Total Protein 5.6 L (6.3-8.2) g/dL Albumin 3.4 L (3.5-5.0) g/dL Urine Color Colorless Urine Appearance Clear (Clear) Urine pH 6.0 (5.0-8.0) Ur Specific [place] 1.005 (1.001-1.035) Urine Protein Negative (Negative) Urine Glucose (UA) Negative (Negative) Urine Ketones Negative (Negative) Urine Blood Negative (Negative) Urine Nitrite Negative (Negative) Urine Bilirubin Negative (Negative) Urine Urobilinogen <2.0 (<2.0) mg/dL Ur Leukocyte Esterase Negative (Negative) 10/12/20 Range/Units 00:41 WBC (3.8-10.6) k/uL RBC (3.80-5.40) m/uL Hgb (11.4-16.0) gm/dL Hct (34.0-46.0) % MCV (80.0-100.0) fL MCH (25.0-35.0) pg MCHC (31.0-37.0) g/dL RDW (11.5-15.5) % Plt Count (150-450) k/uL MPV Neutrophils % % Lymphocytes % % Monocytes % % Eosinophils % % Basophils % % Neutrophils # (1.3-7.7) k/uL Lymphocytes # (1.0-4.8) k/uL Monocytes # (0-1.0) k/uL Eosinophils # (0-0.7) k/uL Basophils # (0-0.2) k/uL Sodium (137-145) mmol/L Potassium (3.5-5.1) mmol/L Chloride (98-107) mmol/L Carbon Dioxide (22-30) mmol/L Anion Gap mmol/L BUN (7-17) mg/dL Creatinine (0.52-1.04) mg/dL Est GFR (CKD-EPI)AfAm (>60 ml/min/1.73 sqM) Est GFR (CKD-EPI)NonAf (>60 ml/min/1.73 sqM) Glucose (74-99) mg/dL Calcium (8.4-10.2) mg/dL Total Bilirubin (0.2-1.3) mg/dL AST (14-36) U/L ALT (4-34) U/L Alkaline Phosphatase (38-126) U/L Troponin I <0.012 (0.000-0.034) ng/mL Total Protein (6.3-8.2) g/dL Albumin (3.5-5.0) g/dL Urine Color Urine Appearance (Clear) Urine pH (5.0-8.0) Ur Specific [place] (1.001-1.035) Urine Protein (Negative) Urine Glucose (UA) (Negative) Urine Ketones (Negative) Urine Blood (Negative) Urine Nitrite (Negative) Urine Bilirubin (Negative) Urine Urobilinogen (<2.0) mg/dL Ur Leukocyte Esterase (Negative) Disposition Clinical Impression: Dizziness Disposition: HOME SELF-CARE Condition: Stable Instructions (If sedation given, give patient instructions): Dizziness (ED) Additional Instructions: Please return to the Emergency Department if symptoms worsen or any other concerns. May try meclizine for any additional dizziness. Follow-up with your primary care physician as well as neurology. Is patient prescribed a controlled substance at d/c from ED?: No Referrals: Ben Pham MD [Primary Care Provider] - 1-2 days Time of Disposition: 02:07
[2020-10-12 01:10] LABS: Basophils % (A) 1 %; Eosinophils # (A) 0.1 k/uL (0-0.7); Eosinophils % (A) 2 %; HCT 37.5 % (34.0-46.0); HGB 12.7 gm/dL (11.4-16.0); Lymphocytes # (A) 1.2 k/uL (1.0-4.8); Lymphocytes % (A) 24 %; MCH 29.3 pg (25.0-35.0); MCHC 33.8 g/dL (31.0-37.0); MCV 86.7 fL (80.0-100.0); Mean Platelet Volume 8.6; Monocytes # (A) 0.3 k/uL (0-1.0); Monocytes % (A) 6 %; Neutrophils # (A) 3.1 k/uL (1.3-7.7); Neutrophils % (A) 64 %; Platelet Count 169 k/uL (150-450); RBC 4.33 m/uL (3.80-5.40); RDW 13.2 % (11.5-15.5); WBC 4.8 k/uL (3.8-10.6)
[2020-10-12 01:13] LABS: Specific Gravity,Urine 1.005 (1.001-1.035)
[2020-10-12 01:19] LABS: ALT 20 U/L (4-34); AST 23 U/L (14-36); African American GFR (CKD) >90 (>60 ml/min/1.73 sqM); Albumin 3.4 g/dL (3.5-5.0); Alkaline Phosphatase 68 U/L (38-126); Anion Gap 7 mmol/L; Blood Urea Nitrogen 13 mg/dL (7-17); Calcium 8.6 mg/dL (8.4-10.2); Carbon Dioxide 24 mmol/L (22-30); Chloride 107 mmol/L (98-107); Glucose 120 mg/dL (74-99); Non-African American GFR(CKD) 86 (>60 ml/min/1.73 sqM); Potassium 3.3 mmol/L (3.5-5.1); Sodium 138 mmol/L (137-145); Total Bilirubin 0.4 mg/dL (0.2-1.3); Total Protein 5.6 g/dL (6.3-8.2)
[2020-10-12 01:25] VITALS: TEMP 98
[2020-10-12 02:23] VITALS: BP 126/58; PULSE 58; RESP 18
== END 2020-10-12 02:15 | disposition home or self-care (01) ==
LOC: EC 00:23
DX: R42 Dizziness and giddiness (principal); F12.90 Cannabis use, unspecified, uncomplicated; J45.909 Unspecified asthma, uncomplicated; E78.5 Hyperlipidemia, unspecified; I10 Essential (primary) hypertension; F41.9 Anxiety disorder, unspecified; F32.9 Major depressive disorder, single episode, unspecified
CPT/HCPCS: 36415; 80053; 81003; 84484; 85025; 93005

== ENCOUNTER 2020-10-12 06:50 | Emergency (ER) | payer MEDICARE, OTHER ==
[2020-10-12 06:59] VITALS: RESP 18; TEMP 98.7
[2020-10-12] MEDS ORDERED: LORazepam 1 MG TAB PO STA (07:05)
--- NOTE | 2020-10-12 07:07 | ED ---
General Adult HPI - General Chief complaint: Recheck/Abnormal Lab/Rx Stated complaint: Dizziness Time Seen by Provider: 10/12/20 07:00 Source: patient, EMS, RN notes reviewed Mode of arrival: EMS Limitations: no limitations - History of Present Illness Initial comments: Patient is a pleasant 59-year-old female presenting to the emergency Department with complaints of dizziness. Patient has chronic dizziness. Patient states she was a little bit more lightheaded than normal. Patient checked her blood pressure and was 190/100. Patient omits to feeling anxious. Patient states she has a lot of anxiety regarding her lightheadedness. Patient states this is a chronic process that has been going on for years and has had multiple evaluations for it. Patient is currently symptom-free except for her chronic lightheadedness that is currently mild. - Related Data Home Medications Medication Instructions Recorded Confirmed Levothyroxine Sodium [Synthroid] 25 mcg PO DAILY 09/18/15 09/23/20 lisinopriL 20 mg PO BID 01/12/19 09/23/20 Atorvastatin [Lipitor] 20 mg PO HS 05/16/19 09/23/20 Propranolol [Inderal] 20 mg PO BID 05/16/19 09/23/20 Cholecalciferol (Vitamin D3) 125 mcg PO DAILY 08/11/20 09/23/20 [Vitamin D3 (5000 Iu)] Escitalopram [Lexapro] 20 mg PO DAILY 08/11/20 09/23/20 Fluticasone Propionate [Flovent 2 puff INHALATION RT-BID 08/11/20 09/23/20 Hfa 220 mcg] Fluticasone Nasal [place] [Flonase 1 - 2 spr EA NOSTRIL DAILY PRN 09/23/20 09/23/20 Nasal [place]] Zinc 50 mg PO DAILY 09/23/20 09/23/20 Previous Rx's Medication Instructions Recorded Fludrocortisone [Florinef] 0.1 mg PO DAILY 30 Days #30 tablet 09/25/20 clonazePAM [KlonoPIN] 0.5 mg PO BID 30 Days #60 tab 09/25/20 Meclizine [Antivert] 25 mg PO TID PRN #12 tab 10/12/20 Allergies Allergy/AdvReac Type Severity Reaction Status Date / Time niacin Allergy Rash/Hives Verified 10/12/20 07:04 cyclobenzaprine AdvReac Lethargic Verified 10/12/20 07:04 [From Flexeril] nitrofurantoin AdvReac Confusion Verified 10/12/20 07:04 [From Macrobid] Review of Systems ROS Statement: Those systems with pertinent positive or pertinent negative responses have been documented in the HPI. ROS Other: All systems not noted in ROS Statement are negative. Constitutional: Denies: fever Eyes: Denies: eye pain ENT: Denies: ear pain Respiratory: Denies: cough Cardiovascular: Denies: chest pain Endocrine: Denies: fatigue Gastrointestinal: Denies: abdominal pain Genitourinary: Denies: dysuria Musculoskeletal: Denies: back pain Skin: Denies: rash Neurological: Denies: headache Psychiatric: Reports: anxiety Past Medical History Past Medical History: Asthma, Blood Disorder, Fibromyalgia, Hyperlipidemia, Hypertension, Rheumatoid Arthritis (RA), Syncope, Thyroid Disorder Additional Past Medical History / Comment(s): episodes of feeling dizzy, weak, disoriented on & off, worse lately, MTHFR gene, see Dr Huston H & P History of Any Multi-Drug Resistant Organisms: None Reported Past Surgical History: No Surgical Hx Reported Past Anesthesia/Blood Transfusion Reactions: No Reported Reaction Additional Past Anesthesia/Blood Transfusion Reaction / Comment(s): no family problems with anesthesia Past Psychological History: Anxiety, Bipolar, Depression, Panic Disorder, PTSD Smoking Status: Never smoker Past Alcohol Use History: None Reported Past Drug Use History: Marijuana - Past Family History Father Family Medical History: Coronary Artery Disease (CAD) Mother Additional Family Medical History / Comment(s): Mother at the age of 2929 years old from alcholism. General Exam Limitations: no limitations General appearance: alert, in no apparent distress Head exam: Present: normocephalic Eye exam: Present: normal appearance, PERRL, EOMI. Absent: nystagmus ENT exam: Present: normal oropharynx Neck exam: Present: normal inspection Respiratory exam: Present: normal lung sounds bilaterally Cardiovascular Exam: Present: regular rate, normal rhythm GI/Abdominal exam: Present: soft. Absent: tenderness Extremities exam: Present: normal inspection Neurological exam: Present: alert, oriented X3, CN II-XII intact. Absent: motor sensory deficit Expanded Neurological exam: Present: protecting the airway Speech: Present: fluid speech Cranial nerves: EOM's Intact: Normal Motor strength exam: RUE: 5, LUE: 5, RLE: 5, LLE: 5 Eye Response: (4) open spontaneously Motor Response: (6) obeys commands Verbal Response: (5) oriented Psychiatric exam: Present: normal affect, normal mood Skin exam: Present: normal color Course Vital Signs 10/12/20 10/12/20 06:54 07:47 Temperature 98.7 F Pulse Rate 68 96 Respiratory 18 18 Rate Blood Pressure 169/81 126/65 O2 Sat by Pulse 96 96 Oximetry Medical Decision Making - Medical Decision Making Patient reevaluated and resting comfortably in bed, remaining symptom-free. Patient updated on need for follow-up. Patient states she has previously seen ENT. Patient is advised to discuss with primary care physician regarding possible neurology evaluation Disposition Clinical Impression: Dizziness, Acute anxiety Disposition: HOME SELF-CARE Condition: Stable Instructions (If sedation given, give patient instructions): Dizziness (ED), Anxiety (ED) Additional Instructions: Please do follow-up with primary care physician in the next day or 2 for recheck. Have primary care physician consider neurology evaluation. Prescription for Antivert has been sent here pharmacy. Return for worsening or change in symptoms, weakness or other concerns. Prescriptions: Meclizine [Antivert] 25 mg PO TID PRN #12 tab PRN Reason: dizziness Is patient prescribed a controlled substance at d/c from ED?: No Referrals: Ben Pham MD [Primary Care Provider] - 1-2 days Time of Disposition: 07:58
[2020-10-12 07:48] VITALS: BP 126/65; PULSE 96
== END 2020-10-12 08:06 | disposition home or self-care (01) ==
LOC: EC 06:50
DX: R42 Dizziness and giddiness (principal); F41.9 Anxiety disorder, unspecified; F32.9 Major depressive disorder, single episode, unspecified; I10 Essential (primary) hypertension; E78.5 Hyperlipidemia, unspecified; M06.9 Rheumatoid arthritis, unspecified; F12.90 Cannabis use, unspecified, uncomplicated; J45.909 Unspecified asthma, uncomplicated; Z79.51 Long term (current) use of inhaled steroids; Z79.890 Hormone replacement therapy
CPT/HCPCS: 36415; 80053; 81003; 84484; 85025; 93005; 99284

== ENCOUNTER 2020-11-04 21:42 | Emergency (ER) | payer MEDICARE, OTHER ==
[2020-11-04 21:47] VITALS: TEMP 97.7
--- NOTE | 2020-11-04 21:54 | ED ---
Weakness HPI - General Chief complaint: Weakness Stated complaint: dizziness, headache Time Seen by Provider: 11/04/20 21:48 Source: patient Mode of arrival: wheelchair Limitations: no limitations - Related Data Home Medications Medication Instructions Recorded Confirmed Levothyroxine Sodium [Synthroid] 25 mcg PO DAILY 09/18/15 09/23/20 lisinopriL 20 mg PO BID 01/12/19 09/23/20 Atorvastatin [Lipitor] 20 mg PO HS 05/16/19 09/23/20 Propranolol [Inderal] 20 mg PO BID 05/16/19 09/23/20 Cholecalciferol (Vitamin D3) 125 mcg PO DAILY 08/11/20 09/23/20 [Vitamin D3 (5000 Iu)] Escitalopram [Lexapro] 20 mg PO DAILY 08/11/20 09/23/20 Fluticasone Propionate [Flovent 2 puff INHALATION RT-BID 08/11/20 09/23/20 Hfa 220 mcg] Fluticasone Nasal [place] [Flonase 1 - 2 spr EA NOSTRIL DAILY PRN 09/23/20 09/23/20 Nasal [place]] Zinc 50 mg PO DAILY 09/23/20 09/23/20 Previous Rx's Medication Instructions Recorded Fludrocortisone [Florinef] 0.1 mg PO DAILY 30 Days #30 tablet 09/25/20 clonazePAM [KlonoPIN] 0.5 mg PO BID 30 Days #60 tab 09/25/20 Meclizine [Antivert] 25 mg PO TID PRN #12 tab 10/12/20 Allergies Allergy/AdvReac Type Severity Reaction Status Date / Time niacin Allergy Rash/Hives Verified 11/04/20 21:47 cyclobenzaprine AdvReac Lethargic Verified 11/04/20 21:47 [From Flexeril] nitrofurantoin AdvReac Confusion Verified 11/04/20 21:47 [From Macrobid] Review of Systems ROS Statement: Those systems with pertinent positive or pertinent negative responses have been documented in the HPI. ROS Other: All systems not noted in ROS Statement are negative. Past Medical History Past Medical History: Asthma, Blood Disorder, Fibromyalgia, Hyperlipidemia, Hypertension, Rheumatoid Arthritis (RA), Syncope, Thyroid Disorder Additional Past Medical History / Comment(s): episodes of feeling dizzy, weak, disoriented on & off, worse lately, MTHFR gene, see Dr Robel Ceballos & P, History of Any Multi-Drug Resistant Organisms: None Reported Past Surgical History: No Surgical Hx Reported Past Anesthesia/Blood Transfusion Reactions: No Reported Reaction Additional Past Anesthesia/Blood Transfusion Reaction / Comment(s): no family problems with anesthesia Past Psychological History: Anxiety, Bipolar, Depression, Panic Disorder, PTSD Smoking Status: Never smoker Past Alcohol Use History: None Reported Past Drug Use History: Marijuana - Past Family History Father Family Medical History: Coronary Artery Disease (CAD) Mother Additional Family Medical History / Comment(s): Mother at the age of 2929 years old from alcholism. General Exam Limitations: no limitations General appearance: alert, in no apparent distress Head exam: Present: atraumatic, normocephalic, normal inspection Eye exam: Present: normal appearance, PERRL, EOMI. Absent: scleral icterus, conjunctival injection, periorbital swelling ENT exam: Present: normal exam, mucous membranes moist Neck exam: Present: normal inspection. Absent: tenderness, meningismus, lymphadenopathy Respiratory exam: Present: normal lung sounds bilaterally. Absent: respiratory distress, wheezes, rales, rhonchi, stridor Cardiovascular Exam: Present: regular rate, normal rhythm, normal heart sounds. Absent: systolic murmur, diastolic murmur, rubs, gallop, clicks GI/Abdominal exam: Present: soft, normal bowel sounds. Absent: distended, tenderness, guarding, rebound, rigid Extremities exam: Present: normal inspection, full ROM, normal capillary refill. Absent: tenderness, pedal edema, joint swelling, calf tenderness Back exam: Present: normal inspection Neurological exam: Present: alert, oriented X3, CN II-XII intact Psychiatric exam: Present: normal affect, normal mood Skin exam: Present: warm, dry, intact, normal color. Absent: rash Course Vital Signs 11/04/20 21:43 Temperature 97.7 F Pulse Rate 77 Respiratory 20 Rate Blood Pressure 179/85 O2 Sat by Pulse 99 Oximetry EKG Findings - EKG Comments: EKG Findings:: EKG is sinus rhythm 68, [place] 150 QRS 78 QTc 460 Medical Decision Making - Lab Data Result diagrams: 11/04/20 22:42 Lab Results 11/04/20 11/04/20 Range/Units 22:42 22:42 WBC 6.4 (3.8-10.6) k/uL RBC 4.78 (3.80-5.40) m/uL Hgb 14.5 (11.4-16.0) gm/dL Hct 41.4 (34.0-46.0) % MCV 86.6 (80.0-100.0) fL MCH 30.3 (25.0-35.0) pg MCHC 35.0 (31.0-37.0) g/dL RDW 12.8 (11.5-15.5) % Plt Count 183 (150-450) k/uL MPV 8.1 Neutrophils % 66 % Lymphocytes % 23 % Monocytes % 6 % Eosinophils % 2 % Basophils % 1 % Neutrophils # 4.2 (1.3-7.7) k/uL Lymphocytes # 1.5 (1.0-4.8) k/uL Monocytes # 0.4 (0-1.0) k/uL Eosinophils # 0.2 (0-0.7) k/uL Basophils # 0.0 (0-0.2) k/uL Urine Color Colorless Urine Appearance Clear (Clear) Urine pH 6.0 (5.0-8.0) Ur Specific [place] 1.002 (1.001-1.035) Urine Protein Negative (Negative) Urine Glucose (UA) Negative (Negative) Urine Ketones Negative (Negative) Urine Blood Negative (Negative) Urine Nitrite Negative (Negative) Urine Bilirubin Negative (Negative) Urine Urobilinogen <2.0 (<2.0) mg/dL Ur Leukocyte Esterase Small H (Negative) Urine RBC <1 (0-5) /hpf Urine WBC 4 (0-5) /hpf Ur Squamous Epith Cells 1 (0-4) /hpf Urine Bacteria Rare H (None) /hpf Disposition Clinical Impression: Ataxia, Dizziness Disposition: HOME SELF-CARE Condition: Fair Instructions (If sedation given, give patient instructions): Dizziness (ED) Is patient prescribed a controlled substance at d/c from ED?: No Referrals: Phill Hillman NPC [REFERRING] - 1-2 days
[2020-11-04 23:14] LABS: Basophils % (A) 1 %; Eosinophils # (A) 0.2 k/uL (0-0.7); Eosinophils % (A) 2 %; HCT 41.4 % (34.0-46.0); HGB 14.5 gm/dL (11.4-16.0); Lymphocytes # (A) 1.5 k/uL (1.0-4.8); Lymphocytes % (A) 23 %; MCH 30.3 pg (25.0-35.0); MCV 86.6 fL (80.0-100.0); Mean Platelet Volume 8.1; Monocytes # (A) 0.4 k/uL (0-1.0); Monocytes % (A) 6 %; Neutrophils # (A) 4.2 k/uL (1.3-7.7); Neutrophils % (A) 66 %; Platelet Count 183 k/uL (150-450); RBC 4.78 m/uL (3.80-5.40); RDW 12.8 % (11.5-15.5); WBC 6.4 k/uL (3.8-10.6)
[2020-11-04 23:20] LABS: Appearance,Urine Clear (Clear); Bacteria,Urine Rare /hpf; Bilirubin,Urine Negative (Negative); Blood,Urine Negative (Negative); Color,Urine Colorless; Glucose,Urine (UA) Negative (Negative); Ketones,Urine Negative (Negative); Leukocyte Esterase,Urine Small (Negative); Nitrite,Urine Negative (Negative); Protein,Urine Negative (Negative); RBC,Urine <1 /hpf (0-5); Specific Gravity,Urine 1.002 (1.001-1.035); Squamous Epithelial Cell,Urine 1 /hpf (0-4); Urobilinogen,Urine <2.0 mg/dL (<2.0); WBC,Urine 4 /hpf (0-5)
[2020-11-04 23:50] LABS: Albumin 4.3 g/dL (3.5-5.0); Calcium 9.7 mg/dL (8.4-10.2); Magnesium 2.1 mg/dL (1.6-2.3); Phosphorus 4.9 mg/dL (2.5-4.5); Potassium 3.8 mmol/L (3.5-5.1); Total Bilirubin 0.4 mg/dL (0.2-1.3); Total Protein 6.8 g/dL (6.3-8.2)
[2020-11-05 00:08] VITALS: BP 123/65; PULSE 61; RESP 18
== END 2020-11-05 00:09 | disposition home or self-care (01) ==
LOC: EC 21:42
DX: R27.0 Ataxia, unspecified (principal); R51.9 Headache, unspecified; J45.909 Unspecified asthma, uncomplicated; M79.7 Fibromyalgia; E78.5 Hyperlipidemia, unspecified; I10 Essential (primary) hypertension; M06.9 Rheumatoid arthritis, unspecified; F41.9 Anxiety disorder, unspecified; F32.9 Major depressive disorder, single episode, unspecified; F12.90 Cannabis use, unspecified, uncomplicated; Z79.51 Long term (current) use of inhaled steroids; Z79.899 Other long term (current) drug therapy
CPT/HCPCS: 36415; 80053; 81001; 83735; 84100; 85025; 93005; 99284

== ENCOUNTER → 2020-11-09 | Outpatient (CLI) | payer MEDICARE, OTHER ==
--- NOTE | 2020-11-09 18:30 | CONS ---
CONSULTATION This 60-year-old lady has been evaluated in the sleep center for possible obstructive sleep apnea-hypopnea syndrome. HISTORY OF PRESENT ILLNESS/SLEEP-WAKE EVALUATION: The patient's usual sleep schedule is from 11 p.m. to 7 a.m. She does have problems with falling asleep sometimes. She has a TV set in the bedroom. She sleeps on the side and back positions. She snores and she has witnessed episodes of stopped breathing during sleep. She wakes up from sleep several times with several episodes of nocturia, episodes of dry mouth, panic attack, palpitations, gasping for air, restless legs, sweating. In the morning the patient wakes up tired, has difficulties paying attention, falling asleep during the day. She worries about her sleep, has problems with memory, concentration, irritability, depression, anxiety. [place] Sleepiness Scale is increased at 12. She may take one nap a day at different times. PAST MEDICAL HISTORY: Positive for hypertension, vertigo, hyperlipidemia, bicuspid aortic valve disease, hypothyroidism, episodes of bradycardia, post-traumatic stress disorder, major depression, anxiety, borderline personality disorder, headaches, acid reflux. SOCIAL HISTORY: Negative for smoking or using alcohol. MEDICATIONS: 1. Propranolol 10 mg twice a day. 2. Lisinopril 20 mg twice a day. 3. Lexapro 20 mg once a day. 4. Fludrocortisone once a day. 5. Synthroid 25 mcg once a day. 6. Klonopin 0.5 mg twice a day. PAST SURGICAL HISTORY: None. FAMILY HISTORY: Thyroid problems, heart problems. REVIEW OF SYSTEMS: No fevers. No double vision. No recent chest pain. No shortness of breath. No abdominal pain. No bleeding episodes. No blood in the urine. No seizure episodes. Multiple awakenings from sleep, sleepiness during the day, episodes of bradycardia. PHYSICAL EXAMINATION: GENERAL: A pleasant lady without distress. VITAL SIGNS: BP 152/86, HR 73, RR 15, height 5 feet 1 inch, weight 217.4, temperature 97.2, oxygen saturation at room air 92%, body mass index 41.0. HEENT: PERRLA, EOMI. Evaluation of oropharynx showed tongue protrudes midline. Low position of soft palate. Mallampati III. NECK: Supple. No JVD. Thyroid is not palpable. Neck is wide; 16 inches in circumference. LUNGS: Clear to percussion and to auscultation. Good air exchange. No wheezing or rhonchi. HEART: S1, S2 regular. No murmurs, gallops or rubs. ABDOMEN: Obese. EXTREMITIES: No clubbing or cyanosis. 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 Cranial nerves 2 to 7 intact. There is no fasciculation or atrophy. noted. No focal deficits observed. IMPRESSION: 1. Snoring, witnessed episodes of stopped breathing during sleep, multiple awakenings from sleep, sleepiness, [place] Sleepiness Scale increased to 12, wide neck, 16 inches in circumference, low position of soft palate, Mallampati III; obstructive sleep apnea-hypopnea syndrome. 2. Obesity. Body mass index 41.0. 3. Episodes of vertigo. 4. History of bradycardia. 5. Hyperlipidemia. 6. History of bicuspid aortic valve. 7. Hypothyroidism. 8. Post-traumatic stress disorder. 9. History of major depression. 10.History of anxiety. 11.History of borderline personality disorder. 12.Headaches. 13.Acid reflux. PLAN: 1. Polysomnography for evaluation of patient's breathing during sleep. 2. CPAP/BiPAP titration if sleep study confirms obstructive sleep apnea-hypopnea syndrome. 3. Preferable position during sleep on the side. 4. No driving if patient feels any sleepiness. 5. I will see patient for follow up visit to explain results of testing and following plan. Thank you very much for referring this patient for consultation. Sincerely, Artur Boss MD, PhD, FAASM Diplomat of [employer] Impersonator Character of [facility] Pedro MMODL / IJN: [id number] /
== END ==
LOC: SLEEP 15:52
PROVIDERS: ATTEND Internal Medicine
DX: G47.33 Obstructive sleep apnea (adult) (pediatric) (principal); E66.9 Obesity, unspecified; R42 Dizziness and giddiness; G47.8 Other sleep disorders; E78.5 Hyperlipidemia, unspecified; E03.9 Hypothyroidism, unspecified; F43.10 Post-traumatic stress disorder, unspecified; F41.9 Anxiety disorder, unspecified; K21.9 Gastro-esophageal reflux disease without esophagitis; F32.9 Major depressive disorder, single episode, unspecified; Z68.41 Body mass index [BMI] 40.0-44.9, adult; Z86.79 Personal history of other diseases of the circulatory system; Z79.890 Hormone replacement therapy; Z79.899 Other long term (current) drug therapy; Z88.3 Allergy status to other anti-infective agents; Z88.8 Allergy status to other drugs, medicaments and biological substances
CPT/HCPCS: 99211

== ENCOUNTER 2020-11-15 09:31 | Emergency (ER) | payer MEDICARE, OTHER ==
[2020-11-15 09:43] VITALS: PULSE 62; RESP 18
[2020-11-15 09:44] VITALS: TEMP 98.6
[2020-11-15] MEDS ORDERED: MECLIZINE 12.5 MG TAB PO STA (10:21)
[2020-11-15] MEDS ORDERED: SODIUM CHLORIDE 0.9% 1,000 ML IV STA (10:21)
--- NOTE | 2020-11-15 10:35 | ED ---
General Adult HPI - General Chief complaint: Dizziness Stated complaint: vertigo Time Seen by Provider: 11/15/20 09:52 Source: EMS Mode of arrival: EMS - History of Present Illness Initial comments: 59-year-old female presents to the emergency room for an episode of lightheadedness and dizziness. Patient reports that these types of episodes have been ongoing for several months. Patient reports that today it was a little worse than normal. Patient reports she was lying on her left side and turned around to lie on her right side and suddenly felt very lightheaded and dizzy. This lasted only a minute before resolving. She has had several similar episodes in the past that always start with position changes. Patient did have a CTA of the head and neck 6 weeks ago. Patient did have an MRI a year ago that showed small white spots apparently. She had a repeat MRA recently that was apparently normal accrding to patient. Patient has seen a esthetician makeup artist for this and did have an event monitor. She did have a cardiology consultation in August about this who changed her medications and monitored her patient monitor without arrhythmia. Patient at this time is feeling much better.Patient has no other complaints at this time including shortness of breath, chest pain, abdominal pain, nausea or vomiting, headache, or visual changes. - Related Data Home Medications Medication Instructions Recorded Confirmed Levothyroxine Sodium [Synthroid] 25 mcg PO DAILY 09/18/15 11/15/20 lisinopriL 20 mg PO BID 01/12/19 11/15/20 Atorvastatin [Lipitor] 20 mg PO HS 05/16/19 11/15/20 Propranolol [Inderal] 10 mg PO BID 05/16/19 11/15/20 Cholecalciferol (Vitamin D3) 125 mcg PO DAILY 08/11/20 11/15/20 [Vitamin D3 (5000 Iu)] Escitalopram [Lexapro] 20 mg PO DAILY 08/11/20 11/15/20 Fluticasone Nasal [place] [Flonase 1 - 2 spr EA NOSTRIL DAILY PRN 09/23/20 11/15/20 Nasal [place]] Cyanocobalamin (Vitamin B-12) 1,000 mcg PO DAILY 11/15/20 11/15/20 [Vitamin B-12] Folic Acid 0.4 mg PO DAILY 11/15/20 11/15/20 L.acidophFranck B.lactis 1 cap PO DAILY 11/15/20 11/15/20 [Probiotic] clonazePAM [KlonoPIN] 0.5 mg PO BID PRN 11/15/20 11/15/20 Previous Rx's Medication Instructions Recorded Fludrocortisone [Florinef] 0.1 mg PO DAILY 30 Days #30 tablet 09/25/20 Meclizine [Antivert] 25 mg PO TID PRN #12 tab 10/12/20 Allergies Allergy/AdvReac Type Severity Reaction Status Date / Time niacin Allergy Rash/Hives Verified 11/15/20 11:01 cyclobenzaprine AdvReac Lethargic Verified 11/15/20 11:01 [From Flexeril] nitrofurantoin AdvReac Confusion Verified 11/15/20 11:01 [From Macrobid] Review of Systems ROS Statement: Those systems with pertinent positive or pertinent negative responses have been documented in the HPI. ROS Other: All systems not noted in ROS Statement are negative. Past Medical History Past Medical History: Asthma, Blood Disorder, Fibromyalgia, Hyperlipidemia, Hypertension, Rheumatoid Arthritis (RA), Syncope, Thyroid Disorder Additional Past Medical History / Comment(s): episodes of feeling dizzy, weak, disoriented on & off, worse lately, MTHFR gene, see Dr Huston H & P, History of Any Multi-Drug Resistant Organisms: None Reported Past Surgical History: No Surgical Hx Reported Past Anesthesia/Blood Transfusion Reactions: No Reported Reaction Additional Past Anesthesia/Blood Transfusion Reaction / Comment(s): no family problems with anesthesia Past Psychological History: Anxiety, Bipolar, Depression, Panic Disorder, PTSD Smoking Status: Never smoker Past Alcohol Use History: None Reported Past Drug Use History: Marijuana - Past Family History Father Family Medical History: Coronary Artery Disease (CAD) Mother Additional Family Medical History / Comment(s): Mother at the age of 2929 years old from alcholism. General Exam General appearance: alert, in no apparent distress Head exam: Present: atraumatic, normocephalic, normal inspection Eye exam: Present: normal appearance, PERRL, EOMI. Absent: scleral icterus, conjunctival injection, periorbital swelling ENT exam: Present: normal exam, mucous membranes moist Neck exam: Present: normal inspection, full ROM. Absent: tenderness, meningismus, lymphadenopathy Respiratory exam: Present: normal lung sounds bilaterally. Absent: respiratory distress, wheezes, rales, rhonchi, stridor Cardiovascular Exam: Present: regular rate, normal rhythm, normal heart sounds. Absent: systolic murmur, diastolic murmur, rubs, gallop, clicks GI/Abdominal exam: Present: soft, normal bowel sounds. Absent: distended, tenderness, guarding, rebound, rigid Neurological exam: Present: alert, oriented X3 Course Vital Signs 11/15/20 11/15/20 09:34 09:44 Temperature 98.6 F Pulse Rate 62 Respiratory 18 Rate Blood Pressure 128/74 O2 Sat by Pulse 98 Oximetry EKG Findings - EKG Comments: EKG Findings:: Normal sinus rhythm, ventricular rate 63, WI interval 154, QTC 417 Medical Decision Making - Medical Decision Making Vitals are stable. CBC CMP unremarkable. Chest x-ray shows no acute process. As discussed in HPI patient has had extensive inpatient and outpatient workup for this without significant findings. Patient symptoms have completely resolved and only lasted 1 minute. She had turned it which triggered this symptom. It is consistent with vertigo. All of her episodes of this start with a position change. At this time patient is stable for discharge home. She is comfortable with this plan. She is following up with ENT. She will return for any worsening symptoms. I discussed this case with attending Dr. Clements who agrees with this assessment and treatment plan. - Lab Data Result diagrams: 11/15/20 10:36 11/15/20 10:36 Lab Results 11/15/20 11/15/20 11/15/20 Range/Units 10:36 10:36 10:36 WBC 4.9 (3.8-10.6) k/uL RBC 4.92 (3.80-5.40) m/uL Hgb 14.3 (11.4-16.0) gm/dL Hct 43.0 (34.0-46.0) % MCV 87.4 (80.0-100.0) fL MCH 29.1 (25.0-35.0) pg MCHC 33.3 (31.0-37.0) g/dL RDW 13.4 (11.5-15.5) % Plt Count 176 (150-450) k/uL MPV 8.2 Neutrophils % 72 % Lymphocytes % 17 % Monocytes % 7 % Eosinophils % 2 % Basophils % 0 % Neutrophils # 3.5 (1.3-7.7) k/uL Lymphocytes # 0.8 L (1.0-4.8) k/uL Monocytes # 0.3 (0-1.0) k/uL Eosinophils # 0.1 (0-0.7) k/uL Basophils # 0.0 (0-0.2) k/uL Sodium 143 (137-145) mmol/L Potassium 4.1 (3.5-5.1) mmol/L Chloride 107 (98-107) mmol/L Carbon Dioxide 29 (22-30) mmol/L Anion Gap 7 mmol/L BUN 12 (7-17) mg/dL Creatinine 0.85 (0.52-1.04) mg/dL Est GFR (CKD-EPI)AfAm 86 (>60 ml/min/1.73 sqM) Est GFR (CKD-EPI)NonAf 75 (>60 ml/min/1.73 sqM) Glucose 108 H (74-99) mg/dL Calcium 9.5 (8.4-10.2) mg/dL Magnesium 2.3 (1.6-2.3) mg/dL Troponin I <0.012 (0.000-0.034) ng/mL Disposition Clinical Impression: Dizziness Disposition: HOME SELF-CARE Condition: Good Instructions (If sedation given, give patient instructions): Dizziness (ED) Additional Instructions: Please follow-up with your ENT doctor as well as your primary care and neurology. Return to the emergency room for any worsening symptoms. Is patient prescribed a controlled substance at d/c from ED?: No Referrals: Ben Pham MD [Primary Care Provider] - 1-2 days Time of Disposition: 12:09
[2020-11-15 11:04] LABS: Basophils % (A) 0 %; Eosinophils # (A) 0.1 k/uL (0-0.7); Eosinophils % (A) 2 %; HGB 14.3 gm/dL (11.4-16.0); Lymphocytes # (A) 0.8 k/uL (1.0-4.8); Lymphocytes % (A) 17 %; MCH 29.1 pg (25.0-35.0); MCHC 33.3 g/dL (31.0-37.0); MCV 87.4 fL (80.0-100.0); Mean Platelet Volume 8.2; Monocytes # (A) 0.3 k/uL (0-1.0); Monocytes % (A) 7 %; Neutrophils # (A) 3.5 k/uL (1.3-7.7); Neutrophils % (A) 72 %; Platelet Count 176 k/uL (150-450); RBC 4.92 m/uL (3.80-5.40); RDW 13.4 % (11.5-15.5); WBC 4.9 k/uL (3.8-10.6)
[2020-11-15 11:30] LABS: Potassium 4.1 mmol/L (3.5-5.1)
[2020-11-15 11:31] LABS: Calcium 9.5 mg/dL (8.4-10.2); Magnesium 2.3 mg/dL (1.6-2.3)
--- NOTE | 2020-11-15 11:42 | XR ---
EXAMINATION TYPE: XR chest 2V DATE OF EXAM: 11/15/2020 COMPARISON: Chest x-ray August 26, 2020 HISTORY: Dizziness and weakness. TECHNIQUE: Frontal and lateral views of the chest are obtained. FINDINGS: There is no suspicious new focal air space opacity, pleural effusion, or pneumothorax seen . The cardiac silhouette size remains within normal limits. Multilevel spurring in thoracic spine re demonstrated. IMPRESSION: No acute cardiopulmonary process. No significant change from prior.
[2020-11-15 12:28] VITALS: BP 128/83
== END 2020-11-15 12:27 | disposition home or self-care (01) ==
LOC: EC 09:31
DX: R42 Dizziness and giddiness (principal); E07.9 Disorder of thyroid, unspecified; E78.5 Hyperlipidemia, unspecified; J45.909 Unspecified asthma, uncomplicated; F31.9 Bipolar disorder, unspecified; F41.9 Anxiety disorder, unspecified; M79.7 Fibromyalgia; I10 Essential (primary) hypertension; M06.9 Rheumatoid arthritis, unspecified; Z79.899 Other long term (current) drug therapy; Z82.49 Family history of ischemic heart disease and other diseases of the circulatory system; Z88.1 Allergy status to other antibiotic agents
CPT/HCPCS: 36415; 71046; 80048; 83735; 84484; 85025; 93005; 96360; 99284

== ENCOUNTER 2020-11-29 14:04 | Emergency (ER) | payer MEDICARE, OTHER ==
[2020-11-29 14:13] VITALS: BP 131/82; PULSE 79; RESP 18; TEMP 97.7
[2020-11-29] MEDS ORDERED: LORazepam 2 MG/ML INJ IV STA (14:30)
[2020-11-29] MEDS ORDERED: SODIUM CHLORIDE 0.9% 1,000 ML IV STA (14:30)
[2020-11-29] MEDS ORDERED: SCOPOLAMINE 1.5MG/72HR PATCH TRANSDERM STA (14:31)
[2020-11-29] MEDS ORDERED: METOCLOPRAMIDE 5 MG/ML 2 ML VIAL IVP STA (14:31)
--- NOTE | 2020-11-29 14:35 | ED ---
General Adult HPI - General Chief complaint: Dizziness Stated complaint: dizziness Time Seen by Provider: 11/29/20 14:20 Source: patient, RN notes reviewed, old records reviewed Mode of arrival: EMS Limitations: no limitations - History of Present Illness Initial comments: Patient is a pleasant 60-year-old female returning emergency Department with complaints of dizziness. Patient states this is a chronic problem and occurs most of the day every day. Patient feels lightheaded mostly in her forehead. Patient states she has been seen multiple times through primary care physician as well as neurology and ENT several times. Patient has had previous CTs, CTA and MRA. Patient is becoming frustrated and anxious regarding her symptoms. No acute changes in her symptoms. No weakness. - Related Data Home Medications Medication Instructions Recorded Confirmed Levothyroxine Sodium [Synthroid] 25 mcg PO DAILY 09/18/15 11/15/20 lisinopriL 20 mg PO BID 01/12/19 11/15/20 Atorvastatin [Lipitor] 20 mg PO HS 05/16/19 11/15/20 Propranolol [Inderal] 10 mg PO BID 05/16/19 11/15/20 Cholecalciferol (Vitamin D3) 125 mcg PO DAILY 08/11/20 11/15/20 [Vitamin D3 (5000 Iu)] Escitalopram [Lexapro] 20 mg PO DAILY 08/11/20 11/15/20 Fluticasone Nasal [place] [Flonase 1 - 2 spr EA NOSTRIL DAILY PRN 09/23/2011/15 Nasal [place]] Cyanocobalamin (Vitamin B-12) 1,000 mcg PO DAILY 11/15/20 11/15/20 [Vitamin B-12] Folic Acid 0.4 mg PO DAILY 11/15/20 11/15/20 L.acidoph,Paracasei, B.lactis 1 cap PO DAILY 11/15/20 11/15/20 [Probiotic] clonazePAM [KlonoPIN] 0.5 mg PO BID PRN 11/15/20 11/15/20 Previous Rx's Medication Instructions Recorded Fludrocortisone [Florinef] 0.1 mg PO DAILY 30 Days #30 tablet 09/25/20 Meclizine [Antivert] 25 mg PO TID PRN #12 tab 10/12/20 Allergies Allergy/AdvReac Type Severity Reaction Status Date / Time niacin Allergy Rash/Hives Verified 11/15/20 11:01 cyclobenzaprine AdvReac Lethargic Verified 11/15/20 11:01 [From Flexeril] nitrofurantoin AdvReac Confusion Verified 11/15/20 11:01 [From Macrobid] Review of Systems ROS Statement: Those systems with pertinent positive or pertinent negative responses have been documented in the HPI. ROS Other: All systems not noted in ROS Statement are negative. Constitutional: Denies: fever Eyes: Denies: eye pain ENT: Denies: ear pain Respiratory: Denies: cough Cardiovascular: Denies: chest pain Endocrine: Denies: fatigue Gastrointestinal: Denies: abdominal pain Genitourinary: Denies: dysuria Musculoskeletal: Denies: back pain Skin: Denies: rash Neurological: Reports: as per HPI. Denies: headache, weakness Past Medical History Past Medical History: Asthma, Blood Disorder, Fibromyalgia, Hyperlipidemia, Hypertension, Rheumatoid Arthritis (RA), Syncope, Thyroid Disorder Additional Past Medical History / Comment(s): episodes of feeling dizzy, weak, disoriented on & off, worse lately, MTHFR gene, see Dr Huston H & P, History of Any Multi-Drug Resistant Organisms: None Reported Past Surgical History: No Surgical Hx Reported Past Anesthesia/Blood Transfusion Reactions: No Reported Reaction Additional Past Anesthesia/Blood Transfusion Reaction / Comment(s): no family problems with anesthesia Past Psychological History: Anxiety, Bipolar, Depression, Panic Disorder, PTSD Smoking Status: Never smoker Past Alcohol Use History: None Reported Past Drug Use History: Marijuana - Past Family History Father Family Medical History: Coronary Artery Disease (CAD) Mother Additional Family Medical History / Comment(s): Mother at the age of 2929 years old from alcholism. General Exam Limitations: no limitations General appearance: alert, in no apparent distress Head exam: Present: atraumatic, normocephalic Eye exam: Present: normal appearance, PERRL, EOMI. Absent: nystagmus ENT exam: Present: normal oropharynx Neck exam: Present: normal inspection Respiratory exam: Present: normal lung sounds bilaterally Cardiovascular Exam: Present: regular rate, normal rhythm GI/Abdominal exam: Present: soft. Absent: tenderness Extremities exam: Present: normal inspection Neurological exam: Present: alert, oriented X3, CN II-XII intact. Absent: motor sensory deficit Expanded Neurological exam: Present: protecting the airway Speech: Present: fluid speech Cranial nerves: EOM's Intact: Normal Sensory exam: Upper Extremity Light Touch: Normal, Lower Extremity Light Touch: Normal Motor strength exam: RUE: 5, LUE: 5, RLE: 5, LLE: 5 Eye Response: (4) open spontaneously Motor Response: (6) obeys commands Verbal Response: (5) oriented Psychiatric exam: Present: normal affect, normal mood Skin exam: Present: normal color Course Vital Signs 11/29/20 14:11 Temperature 97.7 F Pulse Rate 79 Respiratory 18 Rate Blood Pressure 131/82 O2 Sat by Pulse 95 Oximetry EKG Findings - EKG Comments: EKG Findings:: Normal sinus rhythm with a rate of 81. SC 146. QRS 74. QT 380. QTC 441. Normal axis. Low QRS voltage. No acute ST change. Medical Decision Making - Medical Decision Making Patient reevaluated and resting comfortably in bed feeling much better. Patient is comfortable with discharge home. Patient updated on results and need for follow-up. - Lab Data Result diagrams: 11/29/20 14:54 11/29/20 14:54 Lab Results 11/29/20 11/29/20 Range/Units 14:54 14:54 WBC 6.6 (3.8-10.6) k/uL RBC 4.85 (3.80-5.40) m/uL Hgb 14.5 (11.4-16.0) gm/dL Hct 41.5 (34.0-46.0) % MCV 85.5 (80.0-100.0) fL MCH 30.0 (25.0-35.0) pg MCHC 35.0 (31.0-37.0) g/dL RDW 12.8 (11.5-15.5) % Plt Count 198 (150-450) k/uL MPV 7.9 Neutrophils % 72 % Lymphocytes % 18 % Monocytes % 6 % Eosinophils % 2 % Basophils % 0 % Neutrophils # 4.7 (1.3-7.7) k/uL Lymphocytes # 1.2 (1.0-4.8) k/uL Monocytes # 0.4 (0-1.0) k/uL Eosinophils # 0.2 (0-0.7) k/uL Basophils # 0.0 (0-0.2) k/uL Sodium 140 (137-145) mmol/L Potassium 4.4 (3.5-5.1) mmol/L Chloride 107 (98-107) mmol/L Carbon Dioxide 27 (22-30) mmol/L Anion Gap 6 mmol/L BUN 18 H (7-17) mg/dL Creatinine 0.86 (0.52-1.04) mg/dL Est GFR (CKD-EPI)AfAm 85 (>60 ml/min/1.73 sqM) Est GFR (CKD-EPI)NonAf 74 (>60 ml/min/1.73 sqM) Glucose 105 H (74-99) mg/dL Calcium 9.6 (8.4-10.2) mg/dL Total Bilirubin 0.5 (0.2-1.3) mg/dL AST 28 (14-36) U/L ALT 28 (4-34) U/L Alkaline Phosphatase 83 (38-126) U/L Total Protein 6.7 (6.3-8.2) g/dL Albumin 4.3 (3.5-5.0) g/dL Disposition Clinical Impression: Dizziness Disposition: HOME SELF-CARE Condition: Stable Instructions (If sedation given, give patient instructions): Dizziness (ED) Additional Instructions: Please do follow-up to primary care physician in the next day or 2 for recheck. Also follow-up with your neurologist and ENT. Return for worsening or change in symptoms, weakness, or any other concerns. Is patient prescribed a controlled substance at d/c from ED?: No Referrals: Ben Pham MD [Primary Care Provider] - 1-2 days Time of Disposition: 15:32
[2020-11-29 15:11] LABS: Basophils % (A) 0 %; Eosinophils # (A) 0.2 k/uL (0-0.7); Eosinophils % (A) 2 %; HCT 41.5 % (34.0-46.0); HGB 14.5 gm/dL (11.4-16.0); Lymphocytes # (A) 1.2 k/uL (1.0-4.8); Lymphocytes % (A) 18 %; MCV 85.5 fL (80.0-100.0); Mean Platelet Volume 7.9; Monocytes # (A) 0.4 k/uL (0-1.0); Monocytes % (A) 6 %; Neutrophils # (A) 4.7 k/uL (1.3-7.7); Neutrophils % (A) 72 %; Platelet Count 198 k/uL (150-450); RBC 4.85 m/uL (3.80-5.40); RDW 12.8 % (11.5-15.5); WBC 6.6 k/uL (3.8-10.6)
[2020-11-29 15:23] LABS: Albumin 4.3 g/dL (3.5-5.0); Calcium 9.6 mg/dL (8.4-10.2); Potassium 4.4 mmol/L (3.5-5.1); Total Bilirubin 0.5 mg/dL (0.2-1.3); Total Protein 6.7 g/dL (6.3-8.2)
== END 2020-11-29 15:50 | disposition home or self-care (01) ==
LOC: EC 14:04
DX: R42 Dizziness and giddiness (principal); I10 Essential (primary) hypertension; J45.909 Unspecified asthma, uncomplicated; Z88.8 Allergy status to other drugs, medicaments and biological substances; Z88.1 Allergy status to other antibiotic agents; E07.9 Disorder of thyroid, unspecified; Z79.890 Hormone replacement therapy
CPT/HCPCS: 99284 ×2; 96374; 96375; 96361; 36415; 93005; 80053; 85025; J2060; J2765

== ENCOUNTER → 2021-01-25 | Outpatient (CLI) | payer MEDICARE, OTHER ==
--- NOTE | 2021-01-25 21:42 | SFUN ---
SLEEP CENTER FOLLOW UP NOTE DATE OF SERVICE: 01/25/2021 60-year-old lady has been followed in Sleep Center for treatment of obstructive sleep apnea-hypopnea syndrome. Recently patient had a polysomnogram which showed the patient has obstructive sleep apnea and then patient had a CPAP titration and her respiration was normalized on CPAP. Subsequently wrote the patient prescription for CPAP equipment and today is her first visit after she was started on treatment with CPAP. She was able to use CPAP equipment every night. She feels better with equipment. No significant problems related to mask fitting, pressure or humidification. [place] sleepiness Scale today is 9 during the consultation and when his was first visit. [place] Sleepiness Scale was 12 so there is some improvements of alertness. I checked CPAP unit. Range of the pressure 5-9, usage 27/30 nights and 17/30 nights more than 4 hours with average usage 5.0 hours per night. Leak is only 1 L/minute. Apnea-hypopnea index is 0.3, which is absolutely perfect. MEDICATIONS: Propranolol 10 mg twice a day, lisinopril 20 mg twice a day. Lexapro 20 mg once a day. Fludrocortisone once a day, Synthroid 25 mcg once a day. Klonopin 0.5 mg twice a day. PHYSICAL EXAMINATION: GENERAL: Patient in no distress. BP 155/80, HR 82, RR 15, weight 222, temp 98.1. Oxygen saturation at room air 95%. HEENT: Oropharynx low position of soft palate. Mallampati 3. NECK: Supple, no JVD. Thyroid is not palpable. LUNGS: Clear to percussion and to auscultation. Good air exchange. No wheezing or rhonchi. HEART: S1, S2 regular. No murmurs, gallops, or rubs. ABDOMEN: Obese. Soft and nontender. Bowel sounds are present. No organomegaly appreciated. EXTREMITIES: No clubbing or cyanosis. HEATING EQUIPMENT REPAIRER: Awake, alert, and oriented X3. Cranial nerves 2 to 7 intact. There is no fasciculation or atrophy. noted. No focal deficits observed. IMPRESSION: 1. Obstructive sleep apnea-hypopnea syndrome. Patient demonstrated borderline compliance with treatment benefitting from treatment, normal respiration on CPAP. 2. Obesity. 3. Episodes of vertigo. 4. History of bradycardia. 5. Hyperlipidemia. 6. History of bicuspid aortic valve. 7. Hypothyroidism. 8. Post-traumatic stress disorder. 9. History of major depression. 10.History of anxiety. 11.History of borderline personality disorder. 12.History of headaches. 13.Acid reflux. PLAN: 1. Patient will continue to use PAP equipment every night for the whole night. 2. Sleep hygiene with regular time in bed for at least 7-1/2 to 8 hours. 3. Precautions related to driving. No driving if feeling sleepiness. 4. I will maintain all necessary prescription for PAP supplies including mask, tube, filters. 5. Watching weight. 6. Follow-up visit in 6 months or earlier if patient has any problems. Thank you very much for allowing me to participate in management of your patient. Sincerely, Artur Boss MD, PhD, FAASM Diplomat of [place] [employer] Sleep Medicine Board of [place] [employer] 3D Animator of [facility] [place] MMLISHA / ORLY: [id number] /
== END ==
LOC: SLEEP 12:57
PROVIDERS: ATTEND Internal Medicine
DX: G47.33 Obstructive sleep apnea (adult) (pediatric) (principal); E66.9 Obesity, unspecified; R42 Dizziness and giddiness; E78.5 Hyperlipidemia, unspecified; E03.9 Hypothyroidism, unspecified; F43.10 Post-traumatic stress disorder, unspecified; F32.9 Major depressive disorder, single episode, unspecified; F41.9 Anxiety disorder, unspecified; K21.9 Gastro-esophageal reflux disease without esophagitis; Z86.59 Personal history of other mental and behavioral disorders; Z87.74 Personal history of (corrected) congenital malformations of heart and circulatory system; Z87.898 Personal history of other specified conditions; Z79.890 Hormone replacement therapy; Z79.899 Other long term (current) drug therapy; Z88.1 Allergy status to other antibiotic agents; Z88.8 Allergy status to other drugs, medicaments and biological substances

== ENCOUNTER → 2021-08-09 | Outpatient (CLI) | payer MEDICARE, OTHER ==
--- NOTE | 2021-08-09 16:00 | SFUN ---
SLEEP CENTER FOLLOW UP NOTE DATE OF SERVICE: 08/09/2021 This 60-year-old lady has been followed in Sleep Center for treatment of obstructive sleep apnea-hypopnea syndrome. Patient continues to use her CPAP equipment every night. No snoring with the machine. Sometimes she feels nervousness. [place] Sleepiness Scale is 6, which is in normal range. I checked her CPAP unit. Range of the pressure is 5 to 9, average pressure 8.7. Usage is 30/30 nights and 27/30 nights for more than 4 hours, average 7.5 hours per night. Leak is 8 L/minute, which is in normal range. Apnea-hypopnea index is 0.5, which is perfect. MEDICATIONS: 1. Synthroid 25 mcg once a day. 2. Lexapro 20 mg once a day. 3. Propranolol 10 mg twice a day. 4. Lisinopril 10 mg twice a day. 5. Simvastatin 20 mg once a day. 6. Klonopin. PHYSICAL EXAMINATION: GENERAL: Pleasant patient in no distress. VITAL SIGNS: BP 170/83, HR 89, RR 16, weight 233.8, which is 11 pounds more than during the previous visit. HEENT: JOSEPH, EOMI, evaluation of oropharynx showed tongue protrudes midline. Low position of soft palate; Mallampati III. NECK: Supple, no JVD. Thyroid is not palpable. LUNGS: Clear to percussion and to auscultation. Good air exchange. No wheezing or rhonchi. HEART: S1, S2 regular. No murmurs, gallops, or rubs. ABDOMEN: Obese. EXTREMITIES: No clubbing or cyanosis. ANY COMMODITY BUYER: Awake, alert, and oriented X3. Cranial nerves 2 to 7 intact. There is no fasciculation or atrophy. noted. No focal deficits observed. IMPRESSION: 1. Obstructive sleep apnea-hypopnea syndrome. Patient demonstrated great compliance with treatment. Normal respiration on CPAP. 2. Obesity. 3. History of vertigo. 4. History of episodes of bradycardia. 5. Hyperlipidemia. 6. History of bicuspid aortic valve. 7. Hypothyroidism. 8. Post-traumatic stress disorder. 9. History of major depression. 10.History of anxiety. 11.History of borderline personality disorder. 12.History of headaches. 13.Acid reflux. PLAN: 1. Replaced humidifier chamber. 2. Patient will continue to use PAP equipment every night for the whole night. 3. Sleep hygiene with regular time in bed for at least 7-1/2 to 8 hours. 4. Precautions related to driving. No driving if feeling sleepiness. 5. I will maintain all necessary prescription for PAP supplies including mask, tube, filters. 6. Watching weight. 7. Follow-up visit in 6 months or earlier if patient has any problems. Thank you very much for allowing me to participate in the management of your patient. Sincerely, Artur Boss MD, PhD, FAASM Diplomat of [place] [employer] Sleep Medicine Board of [place] [employer] Marketing Traffic Manager of [facility] [place] MMODL / ALICEN: [id number] /
== END ==
LOC: SLEEP 15:02
PROVIDERS: ATTEND Internal Medicine
DX: G47.33 Obstructive sleep apnea (adult) (pediatric) (principal); E66.9 Obesity, unspecified; K21.9 Gastro-esophageal reflux disease without esophagitis; E78.5 Hyperlipidemia, unspecified; F43.10 Post-traumatic stress disorder, unspecified; E03.9 Hypothyroidism, unspecified; Z86.69 Personal history of other diseases of the nervous system and sense organs; Z86.79 Personal history of other diseases of the circulatory system; F32.A Depression, unspecified; F41.9 Anxiety disorder, unspecified; Z79.890 Hormone replacement therapy; Z99.89 Dependence on other enabling machines and devices; Z88.8 Allergy status to other drugs, medicaments and biological substances; Z88.1 Allergy status to other antibiotic agents

== ENCOUNTER 2021-12-15 11:51 | Emergency (ER) | payer MEDICARE, OTHER ==
[2021-12-15 11:58] VITALS: RESP 18; TEMP 98.7
--- NOTE | 2021-12-15 12:29 | ED ---
General Adult HPI - General Chief complaint: Headache Stated complaint: Hypertension Time Seen by Provider: 12/15/21 12:16 Source: patient, EMS, RN notes reviewed Mode of arrival: EMS Limitations: no limitations - History of Present Illness Initial comments: Patient is a pleasant 61-year-old female presenting to the emergency department with anxiety and high blood pressure. Patient had her medication changed by pharmacy to a generic one has been having blood pressure problems since that time. Patient's blood pressure was 168/110. Patient did take her medications. Patient also took her anxiety medication. Patient states she is symptom-free at this time. - Related Data Home Medications Medication Instructions Recorded Confirmed Levothyroxine Sodium [Synthroid] 25 mcg PO DAILY 09/18/15 08/10/21 lisinopriL 20 mg PO BID 01/12/19 08/10/21 Atorvastatin [Lipitor] 20 mg PO HS 05/16/19 08/10/21 Cholecalciferol (Vitamin D3) 125 mcg PO DAILY PRN 08/11/20 08/10/21 [Vitamin D3 (5000 Iu)] Escitalopram [Lexapro] 20 mg PO DAILY 08/11/20 08/10/21 Fluticasone Nasal [place] [Flonase 1 - 2 spr EA NOSTRIL DAILY PRN 09/23/20 08/10/21 Nasal [place]] Cyanocobalamin (Vitamin B-12) 1,000 mcg PO DAILY PRN 11/15/20 08/10/21 [Vitamin B-12] L.acidoph,Paracasei, B.lactis 1 cap PO DAILY 11/15/20 08/10/21 [Probiotic] clonazePAM [KlonoPIN] 0.5 mg PO BID 11/15/20 08/10/21 Albuterol Inhaler [Ventolin Hfa 2 puff INHALATION RT-QID PRN 08/10/21 08/10/21 Inhaler] Propranolol [Inderal] 10 mg PO BID 08/10/21 08/10/21 Pyridoxine HCl (Vitamin B6) 100 mg PO DAILY PRN 08/10/21 08/10/21 [Vitamin B-6] Zinc 50 mg PO DAILY PRN 08/10/21 08/10/21 Allergies Allergy/AdvReac Type Severity Reaction Status Date / Time niacin Allergy Rash/Hives Verified 12/15/21 11:58 cyclobenzaprine AdvReac Lethargic Verified 12/15/21 11:58 [From Flexeril] nitrofurantoin AdvReac Confusion Verified 12/15/21 11:58 [From Macrobid] Review of Systems ROS Statement: Those systems with pertinent positive or pertinent negative responses have been documented in the HPI. ROS Other: All systems not noted in ROS Statement are negative. Constitutional: Denies: fever Eyes: Denies: eye pain ENT: Denies: ear pain Respiratory: Denies: cough Cardiovascular: Denies: chest pain Endocrine: Denies: fatigue Gastrointestinal: Denies: abdominal pain Genitourinary: Denies: dysuria Skin: Denies: rash Neurological: Reports: headache (Mild headache earlier) Psychiatric: Reports: anxiety Past Medical History Past Medical History: Asthma, Blood Disorder, Fibromyalgia, Hyperlipidemia, Hypertension, Rheumatoid Arthritis (RA), Syncope, Thyroid Disorder Additional Past Medical History / Comment(s): episodes of feeling dizzy, weak, disoriented on & off, worse lately, MTHFR gene, see Dr Huston H & P, History of Any Multi-Drug Resistant Organisms: None Reported Past Surgical History: No Surgical Hx Reported Past Anesthesia/Blood Transfusion Reactions: No Reported Reaction Additional Past Anesthesia/Blood Transfusion Reaction / Comment(s): no family problems with anesthesia Past Psychological History: Anxiety, Bipolar, Depression, Panic Disorder, PTSD Smoking Status: Never smoker Past Alcohol Use History: None Reported Past Drug Use History: Marijuana - Past Family History Father Family Medical History: Coronary Artery Disease (CAD) Mother Additional Family Medical History / Comment(s): Mother at the age of 2929 years old from alcholism. General Exam Limitations: no limitations General appearance: alert, in no apparent distress Head exam: Present: normocephalic Eye exam: Present: normal appearance, PERRL, EOMI Neck exam: Present: normal inspection Respiratory exam: Present: normal lung sounds bilaterally Cardiovascular Exam: Present: regular rate, normal rhythm GI/Abdominal exam: Present: soft. Absent: tenderness Extremities exam: Present: normal inspection Neurological exam: Present: alert, oriented X3, CN II-XII intact. Absent: motor sensory deficit Psychiatric exam: Present: normal affect, normal mood Skin exam: Present: normal color Course Vital Signs 12/15/21 12/15/21 11:54 11:58 Temperature 98.7 F Pulse Rate 69 Pulse Rate [ 64 Radial] Respiratory 18 Rate Blood Pressure 138/77 O2 Sat by Pulse 96 Oximetry EKG Findings - EKG Comments: EKG Findings:: Sinus bradycardia 58. MN 169. QRS 81. QT 410. QTc 47. Normal axis. Normal QRS. No acute ST change. Medical Decision Making - Medical Decision Making Patient reevaluated and resting comfortably in bed, symptom-free. Blood pressure improved. Patient updated on results and need for follow-up - Lab Data Result diagrams: 12/15/21 12:48 12/15/21 12:48 Lab Results 12/15/21 12/15/21 Range/Units 12:48 12:48 WBC 5.3 (3.8-10.6) k/uL RBC 4.71 (3.80-5.40) m/uL Hgb 14.3 (11.4-16.0) gm/dL Hct 41.8 (34.0-46.0) % MCV 88.8 (80.0-100.0) fL MCH 30.5 (25.0-35.0) pg MCHC 34.3 (31.0-37.0) g/dL RDW 13.1 (11.5-15.5) % Plt Count 193 (150-450) k/uL MPV 7.9 Neutrophils % 70 % Lymphocytes % 18 % Monocytes % 5 % Eosinophils % 3 % Basophils % 0 % Neutrophils # 3.7 (1.3-7.7) k/uL Lymphocytes # 1.0 (1.0-4.8) k/uL Monocytes # 0.3 (0-1.0) k/uL Eosinophils # 0.2 (0-0.7) k/uL Basophils # 0.0 (0-0.2) k/uL Sodium 140 (137-145) mmol/L Potassium 4.1 (3.5-5.1) mmol/L Chloride 110 H (98-107) mmol/L Carbon Dioxide 25 (22-30) mmol/L Anion Gap 5 mmol/L BUN 13 (7-17) mg/dL Creatinine 0.79 (0.52-1.04) mg/dL Est GFR (CKD-EPI)AfAm >90 (>60 ml/min/1.73 sqM) Est GFR (CKD-EPI)NonAf 81 (>60 ml/min/1.73 sqM) Glucose 106 H (74-99) mg/dL Calcium 8.8 (8.4-10.2) mg/dL Total Bilirubin 0.6 (0.2-1.3) mg/dL AST 33 (14-36) U/L ALT 45 H (4-34) U/L Alkaline Phosphatase 95 (38-126) U/L Total Protein 6.6 (6.3-8.2) g/dL Albumin 4.1 (3.5-5.0) g/dL Disposition Clinical Impression: Hypertension Disposition: HOME SELF-CARE Condition: Stable Instructions (If sedation given, give patient instructions): Hypertension (ED) Additional Instructions: Please do follow-up to primary care physician in the next day or 2 for recheck. Return for uncontrolled blood pressure, headache, weakness, worsening or changing symptoms or other concerns. Is patient prescribed a controlled substance at d/c from ED?: No Referrals: Rojelio Hayes MD [Primary Care Provider] - 1-2 days Time of Disposition: 13:36
[2021-12-15 13:00] LABS: Basophils % (A) 0 %; Eosinophils # (A) 0.2 k/uL (0-0.7); Eosinophils % (A) 3 %; HCT 41.8 % (34.0-46.0); HGB 14.3 gm/dL (11.4-16.0); Lymphocytes % (A) 18 %; MCH 30.5 pg (25.0-35.0); MCHC 34.3 g/dL (31.0-37.0); MCV 88.8 fL (80.0-100.0); Mean Platelet Volume 7.9; Monocytes # (A) 0.3 k/uL (0-1.0); Monocytes % (A) 5 %; Neutrophils # (A) 3.7 k/uL (1.3-7.7); Neutrophils % (A) 70 %; Platelet Count 193 k/uL (150-450); RBC 4.71 m/uL (3.80-5.40); RDW 13.1 % (11.5-15.5); WBC 5.3 k/uL (3.8-10.6)
[2021-12-15 13:13] LABS: ALT 45 U/L (4-34); AST 33 U/L (14-36); African American GFR (CKD) >90 (>60 ml/min/1.73 sqM); Albumin 4.1 g/dL (3.5-5.0); Alkaline Phosphatase 95 U/L (38-126); Anion Gap 5 mmol/L; Blood Urea Nitrogen 13 mg/dL (7-17); Calcium 8.8 mg/dL (8.4-10.2); Carbon Dioxide 25 mmol/L (22-30); Chloride 110 mmol/L (98-107); Glucose 106 mg/dL (74-99); Non-African American GFR(CKD) 81 (>60 ml/min/1.73 sqM); Potassium 4.1 mmol/L (3.5-5.1); Sodium 140 mmol/L (137-145); Total Bilirubin 0.6 mg/dL (0.2-1.3); Total Protein 6.6 g/dL (6.3-8.2)
[2021-12-15 14:04] VITALS: BP 112/73; PULSE 61
== END 2021-12-15 14:04 | disposition home or self-care (01) ==
LOC: EC 11:51
DX: I10 Essential (primary) hypertension (principal); E78.5 Hyperlipidemia, unspecified; J45.909 Unspecified asthma, uncomplicated; M79.7 Fibromyalgia; M06.9 Rheumatoid arthritis, unspecified; F31.9 Bipolar disorder, unspecified; F41.9 Anxiety disorder, unspecified; E07.9 Disorder of thyroid, unspecified; F12.90 Cannabis use, unspecified, uncomplicated; Z79.890 Hormone replacement therapy; Z79.51 Long term (current) use of inhaled steroids; Z79.899 Other long term (current) drug therapy
CPT/HCPCS: 36415; 80053; 85025; 93005; 99283

== ENCOUNTER → 2022-02-14 | Outpatient (CLI) | payer MEDICARE, OTHER ==
--- NOTE | 2022-02-14 15:42 | P.PN ---
Subjective DATE: 02/14/2022 FOLLOW UP VISIT. Patient with obstructive sleep apnea hypopnea syndrome return to sleep center for follow-up visit. Information from previous visit have been reviewed. Patient is using PAP equipment every night for the whole night, getting PAP supplies in time. The patient does not have significant problems with the mask, PAP unit and humidification. Benavides sleepiness scale is 11. I checked PAP unit. PAP unit pressure 5-9, average 8.7 cm H2O. Usage is 100 % for more then 4 hours, average 9.5 hours per night. Leak is 0 l/m, which is perfect. Apnea Hypopnea Index is 0.7, which is normal. MEDICATIONS:1. Propranolol 10 mg twice a day 2. Lisinopril 20 mg twice a day 3. Atorvastatin 20 mg once a day 4. Klonopin 0.5 mg once a day 5. Levothyroxine 25 g once a day 6. Lexapro 20 mg once a day During physical exam: GENERAL: A pleasant patient without any distress. VITAL SIGNS: BP 115/76, HR 75, RR 16 , weight 228.4, temperature 95.5, oxygen s aturation at room air 96 % . HEENT: PERRLA, EOMI.low position of soft palate, Mallapati 3 . NECK: Supple. No JVD. LUNGS: Clear to percussion and to auscultation. Good air exchange. No wheezing or rhonchi. HEART: S1, S2 regular. ABDOMEN: Soft and nontender. Obese EXTREMITIES: No clubbing or cyanosis. COAL PICKER: Awake, alert, and oriented x3. No focal deficit. Impressions: 1. Obstructive sleep apnea-hypopnea syndrome. Patient demonstrated great compliance with treatment, benefiting from treatment. 2. History of bicuspid aortic valve. 3. Hyperlipidemia. 4. Hypothyroidism. 5. Post traumatic stress disorder. 6. History of major depression. 7. History of anxiety. 8. History of borderline personality disorder. 9. History of headaches. 10. Acid reflux. Plan: 1. Continue using PAP equipment every night for the whole night. 2. To change air filter at least 1-2 times per month. 3. PAP unit should stay lower then position of the head. 4. Advised patient to remove all remaining water from humidifier canister daily and make it dry after each usage. Refill canister with fresh distilled water before each usage. 5. Sleep hygiene with regular time in bed for at least 8 hours. 6. Precautions related to driving. No driving if feel any sleepiness. 7. I will maintain prescription for PAP supplies including mask, tube, filters. 8. Follow up visit in 6 months or earlier if patient has any problems. 9. Watching weight. Thank you very much for allowing me to participate in the management of your patient. Artur Boss MD, PhD, FAASM. Diplomat of [place] [employer], Sleep Medicine Board by [place] [employer] [facility] [place]
== END ==
LOC: SLEEP 14:50
PROVIDERS: ATTEND Internal Medicine
DX: G47.33 Obstructive sleep apnea (adult) (pediatric) (principal); E78.5 Hyperlipidemia, unspecified; E03.9 Hypothyroidism, unspecified; F43.10 Post-traumatic stress disorder, unspecified; F32.A Depression, unspecified; Z86.79 Personal history of other diseases of the circulatory system; F41.9 Anxiety disorder, unspecified; K21.9 Gastro-esophageal reflux disease without esophagitis; Z86.59 Personal history of other mental and behavioral disorders; Z99.89 Dependence on other enabling machines and devices; Z79.890 Hormone replacement therapy; Z88.8 Allergy status to other drugs, medicaments and biological substances; Z88.6 Allergy status to analgesic agent; Z88.1 Allergy status to other antibiotic agents
CPT/HCPCS: 99212

== ENCOUNTER 2022-04-23 07:27 | Emergency (ER) | payer MEDICARE, OTHER ==
[2022-04-23 07:42] VITALS: TEMP 97.8
[2022-04-23] MEDS ORDERED: SODIUM CHLORIDE 0.9% 500 ML 500 ML IV STA (07:46)
--- NOTE | 2022-04-23 08:18 | ED ---
Dizziness HPI - General Chief Complaint: Dizziness Stated Complaint: Dizziness Time Seen by Provider: 04/23/22 07:30 Source: patient, EMS Mode of arrival: EMS Limitations: no limitations - History of Present Illness Initial Comments: This patient is a 61-year-old woman who presents to have evaluation for feeling like she was going to pass out. The patient states that it had come on this morning. 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 She sat down and states that she felt like a wave of adrenaline and wash over. SHe states that the symptoms cleared after a couple of minutes. She attempted to get up and then had a similar episode so she presented here for evaluation. The patient denies having chest pain, dyspnea, diaphoresis, nausea or vomiting. She states that it was not a vertiginous feeling but like she may pass out. Complaint: lightheadedness -: hour(s) Timing: sudden onset, intermittent Description: lightheadedness History of Same: No History of Trauma: No Severity: moderate Improves With: rest Worsens With: other Associated Symptoms: denies other symptoms - Related Data Home Medications Medication Instructions Recorded Confirmed Levothyroxine Sodium [Synthroid] 25 mcg PO DAILY 09/18/15 12/15/21 lisinopriL 20 mg PO BID 01/12/19 12/15/21 Atorvastatin [Lipitor] 20 mg PO HS 05/16/19 12/15/21 Escitalopram [Lexapro] 20 mg PO DAILY 08/11/20 12/15/21 Fluticasone Nasal [place] [Flonase 1 - 2 spr EA NOSTRIL DAILY PRN 09/23/20 12/15/21 Nasal [place]] clonazePAM [KlonoPIN] 0.5 mg PO BID 11/15/20 12/15/21 Albuterol Inhaler [Ventolin Hfa 2 puff INHALATION RT-QID PRN 08/10/21 12/15/21 Inhaler] Propranolol [Inderal] 10 mg PO BID 08/10/21 12/15/21 Meclizine [Antivert] 12.5 mg PO BID PRN 12/15/21 12/15/21 Allergies Allergy/AdvReac Type Severity Reaction Status Date / Time niacin Allergy Rash/Hives Verified 12/15/21 13:31 cyclobenzaprine AdvReac Lethargic Verified 12/15/21 13:31 [From Flexeril] nitrofurantoin AdvReac Confusion Verified 12/15/21 13:31 [From Macrobid] Review of Systems ROS Statement: Those systems with pertinent positive or pertinent negative responses have been documented in the HPI. ROS Other: All systems not noted in ROS Statement are negative. Constitutional: Denies: fever, chills, weakness Eyes: Denies: vision change ENT: Denies: ear pain, congestion Respiratory: Denies: cough, dyspnea Cardiovascular: Reports: as per HPI. Denies: chest pain, dyspnea on exertion, orthopnea Gastrointestinal: Denies: abdominal pain, vomiting, diarrhea Genitourinary: Denies: dysuria, hematuria Musculoskeletal: Denies: back pain Skin: Denies: rash Neurological: Denies: headache, weakness, numbness Past Medical History Past Medical History: Asthma, Blood Disorder, Fibromyalgia, Hyperlipidemia, Hypertension, Liver Disease, Rheumatoid Arthritis (RA), Syncope, Thyroid Disorder Additional Past Medical History / Comment(s): episodes of feeling dizzy, weak, disoriented on & off, worse lately, MTHFR gene, see Dr Huston H & P, arthritis, umbilical hernia History of Any Multi-Drug Resistant Organisms: None Reported Past Surgical History: No Surgical Hx Reported Past Anesthesia/Blood Transfusion Reactions: No Reported Reaction Additional Past Anesthesia/Blood Transfusion Reaction / Comment(s): no family problems with anesthesia Past Psychological History: Anxiety, Bipolar, Depression, Panic Disorder, PTSD Smoking Status: Never smoker Past Alcohol Use History: None Reported Past Drug Use History: Marijuana - Past Family History Father Family Medical History: Coronary Artery Disease (CAD) Mother Additional Family Medical History / Comment(s): Mother at the age of 2929 years old from alcholism. General Exam Limitations: no limitations General appearance: alert, in no apparent distress Head exam: Present: atraumatic, normocephalic Eye exam: Present: normal appearance. Absent: scleral icterus, conjunctival injection Neck exam: Present: normal inspection Respiratory exam: Present: normal lung sounds bilaterally. Absent: respiratory distress, wheezes, rales, rhonchi, stridor Cardiovascular Exam: Present: regular rate, normal rhythm, normal heart sounds. Absent: systolic murmur, diastolic murmur, rubs, gallop GI/Abdominal exam: Present: soft. Absent: distended, tenderness, guarding, rebound, rigid, mass Extremities exam: Present: normal inspection, normal capillary refill. Absent: pedal edema, calf tenderness Back exam: Present: normal inspection. Absent: CVA tenderness (R), CVA tenderness (L) Neurological exam: Present: alert, CN II-XII intact. Absent: motor sensory deficit Skin exam: Present: warm, dry, intact, normal color. Absent: rash Course Vital Signs 04/23/22 07:29 Temperature 97.8 F Pulse Rate 82 Respiratory 17 Rate Blood Pressure 133/72 O2 Sat by Pulse 98 Oximetry EKG Findings - EKG Results: EKG: interpreted by CANELO, WENYDL, sinus rhythm (Rate 80 bpm), normal axis, normal QRS, normal ST/T, no acute changes - ME, Pacemaker, Normal: Normal tracing: normal tracing Medical Decision Making - Lab Data Result diagrams: 04/23/22 08:01 04/23/22 08:01 Lab Results 04/23/22 04/23/22 04/23/22 Range/Units 08:01 08:01 08:01 WBC 4.6 (3.8-10.6) k/uL RBC 4.56 (3.80-5.40) m/uL Hgb 14.0 (11.4-16.0) gm/dL Hct 39.5 (34.0-46.0) % MCV 86.6 (80.0-100.0) fL MCH 30.6 (25.0-35.0) pg MCHC 35.3 (31.0-37.0) g/dL RDW 13.0 (11.5-15.5) % Plt Count 147 L (150-450) k/uL MPV 8.9 Neutrophils % 60 % Lymphocytes % 26 % Monocytes % 7 % Eosinophils % 3 % Basophils % 1 % Neutrophils # 2.8 (1.3-7.7) k/uL Lymphocytes # 1.2 (1.0-4.8) k/uL Monocytes # 0.3 (0-1.0) k/uL Eosinophils # 0.1 (0-0.7) k/uL Basophils # 0.0 (0-0.2) k/uL Sodium 136 L (137-145) mmol/L Potassium 3.8 (3.5-5.1) mmol/L Chloride 104 (98-107) mmol/L Carbon Dioxide 24 (22-30) mmol/L Anion Gap 8 mmol/L BUN 15 (7-17) mg/dL Creatinine 0.78 (0.52-1.04) mg/dL Est GFR (CKD-EPI)AfAm >90 (>60 ml/min/1.73 sqM) Est GFR (CKD-EPI)NonAf 82 (>60 ml/min/1.73 sqM) Glucose 115 H (74-99) mg/dL Plasma Lactic Acid [place] (0.7-2.0) mmol/L Calcium 8.6 (8.4-10.2) mg/dL Total Bilirubin 0.7 (0.2-1.3) mg/dL AST 27 (14-36) U/L ALT 37 H (4-34) U/L Alkaline Phosphatase 74 (38-126) U/L Troponin I (0.000-0.034) ng/mL Total Protein 6.2 L (6.3-8.2) g/dL Albumin 4.1 (3.5-5.0) g/dL Urine Color Light Yellow Urine Appearance Clear (Clear) Urine pH 5.5 (5.0-8.0) Ur Specific [place] 1.010 (1.001-1.035) Urine Protein Negative (Negative) Urine Glucose (UA) Negative (Negative) Urine Ketones Negative (Negative) Urine Blood Negative (Negative) Urine Nitrite Negative (Negative) Urine Bilirubin Negative (Negative) Urine Urobilinogen <2.0 (<2.0) mg/dL Ur Leukocyte Esterase Trace H (Negative) Urine RBC 1 (0-5) /hpf Urine WBC 3 (0-5) /hpf Ur Squamous Epith Cells <1 (0-4) /hpf Urine Bacteria Rare H (None) /hpf Urine Mucus Rare H (None) /hpf 04/23/22 04/23/22 Range/Units 08:01 08:01 WBC (3.8-10.6) k/uL RBC (3.80-5.40) m/uL Hgb (11.4-16.0) gm/dL Hct (34.0-46.0) % MCV (80.0-100.0) fL MCH (25.0-35.0) pg MCHC (31.0-37.0) g/dL RDW (11.5-15.5) % Plt Count (150-450) k/uL MPV Neutrophils % % Lymphocytes % % Monocytes % % Eosinophils % % Basophils % % Neutrophils # (1.3-7.7) k/uL Lymphocytes # (1.0-4.8) k/uL Monocytes # (0-1.0) k/uL Eosinophils # (0-0.7) k/uL Basophils # (0-0.2) k/uL Sodium (137-145) mmol/L Potassium (3.5-5.1) mmol/L Chloride (98-107) mmol/L Carbon Dioxide (22-30) mmol/L Anion Gap mmol/L BUN (7-17) mg/dL Creatinine (0.52-1.04) mg/dL Est GFR (CKD-EPI)AfAm (>60 ml/min/1.73 sqM) Est GFR (CKD-EPI)NonAf (>60 ml/min/1.73 sqM) Glucose (74-99) mg/dL Plasma Lactic Acid [place] 1.2 (0.7-2.0) mmol/L Calcium (8.4-10.2) mg/dL Total Bilirubin (0.2-1.3) mg/dL AST (14-36) U/L ALT (4-34) U/L Alkaline Phosphatase (38-126) U/L Troponin I <0.012 (0.000-0.034) ng/mL Total Protein (6.3-8.2) g/dL Albumin (3.5-5.0) g/dL Urine Color Urine Appearance (Clear) Urine pH (5.0-8.0) Ur Specific [place] (1.001-1.035) Urine Protein (Negative) Urine Glucose (UA) (Negative) Urine Ketones (Negative) Urine Blood (Negative) Urine Nitrite (Negative) Urine Bilirubin (Negative) Urine Urobilinogen (<2.0) mg/dL Ur Leukocyte Esterase (Negative) Urine RBC (0-5) /hpf Urine WBC (0-5) /hpf Ur Squamous Epith Cells (0-4) /hpf Urine Bacteria (None) /hpf Urine Mucus (None) /hpf Disposition Clinical Impression: Near syncope Disposition: HOME SELF-CARE Condition: Good Instructions (If sedation given, give patient instructions): Near Syncope (ED) Is patient prescribed a controlled substance at d/c from ED?: No Referrals: Kaleigh Ferraro MD [Primary Care Provider] - 1-2 days
[2022-04-23 08:44] LABS: ALT 37 U/L (4-34); AST 27 U/L (14-36); African American GFR (CKD) >90 (>60 ml/min/1.73 sqM); Albumin 4.1 g/dL (3.5-5.0); Alkaline Phosphatase 74 U/L (38-126); Anion Gap 8 mmol/L; Appearance,Urine Clear (Clear); Bacteria,Urine Rare /hpf; Bilirubin,Urine Negative (Negative); Blood Urea Nitrogen 15 mg/dL (7-17); Blood,Urine Negative (Negative); Calcium 8.6 mg/dL (8.4-10.2); Carbon Dioxide 24 mmol/L (22-30); Chloride 104 mmol/L (98-107); Color,Urine Light Yellow; Glucose 115 mg/dL (74-99); Glucose,Urine (UA) Negative (Negative); Ketones,Urine Negative (Negative); Leukocyte Esterase,Urine Trace (Negative); Mucus,Urine Rare /hpf; Nitrite,Urine Negative (Negative); Non-African American GFR(CKD) 82 (>60 ml/min/1.73 sqM); PH, Urine 5.5 (5.0-8.0); Potassium 3.8 mmol/L (3.5-5.1); Protein,Urine Negative (Negative); RBC,Urine 1 /hpf (0-5); Sodium 136 mmol/L (137-145); Squamous Epithelial Cell,Urine <1 /hpf (0-4); Total Bilirubin 0.7 mg/dL (0.2-1.3); Total Protein 6.2 g/dL (6.3-8.2); Urobilinogen,Urine <2.0 mg/dL (<2.0); WBC,Urine 3 /hpf (0-5)
[2022-04-23 08:45] LABS: Basophils % (A) 1 %; Eosinophils # (A) 0.1 k/uL (0-0.7); Eosinophils % (A) 3 %; HCT 39.5 % (34.0-46.0); Lymphocytes # (A) 1.2 k/uL (1.0-4.8); Lymphocytes % (A) 26 %; MCH 30.6 pg (25.0-35.0); MCHC 35.3 g/dL (31.0-37.0); MCV 86.6 fL (80.0-100.0); Mean Platelet Volume 8.9; Monocytes # (A) 0.3 k/uL (0-1.0); Monocytes % (A) 7 %; Neutrophils # (A) 2.8 k/uL (1.3-7.7); Neutrophils % (A) 60 %; Platelet Count 147 k/uL (150-450); RBC 4.56 m/uL (3.80-5.40); WBC 4.6 k/uL (3.8-10.6)
--- NOTE | 2022-04-23 08:54 | XR ---
EXAMINATION TYPE: XR chest 2V DATE OF EXAM: 04/23/2022 8:49 AM COMPARISON: Chest radiographs from 11/15/2020. TECHNIQUE: XR chest 2V Frontal and lateral views of the chest. CLINICAL INDICATION:Female, 61 years old with history of dizziness; FINDINGS: Lungs/Pleura: There is no evidence of pleural effusion, focal consolidation, or pneumothorax. Pulmonary vascularity: Unremarkable. Heart/mediastinum: Cardiomediastinal silhouette is unremarkable. Musculoskeletal: Multiple level degenerative disc disease changes seen throughout the spine. Bilatera l shoulder arthropathy. Right lateral shoulder calcifications suspected supraspinatus tendinosis. IMPRESSION: No acute cardiopulmonary disease/process. No significant change in prior examination.
[2022-04-23 10:36] VITALS: PULSE 85
[2022-04-23 11:09] VITALS: BP 118/68; RESP 17
== END 2022-04-23 11:09 | disposition home or self-care (01) ==
LOC: EC 07:27
DX: R55 Syncope and collapse (principal); I10 Essential (primary) hypertension; J45.909 Unspecified asthma, uncomplicated; E78.5 Hyperlipidemia, unspecified; E03.9 Hypothyroidism, unspecified; F12.90 Cannabis use, unspecified, uncomplicated; F31.9 Bipolar disorder, unspecified; F41.9 Anxiety disorder, unspecified; Z79.51 Long term (current) use of inhaled steroids; Z79.899 Other long term (current) drug therapy; Z79.890 Hormone replacement therapy; Z88.1 Allergy status to other antibiotic agents; Z88.3 Allergy status to other anti-infective agents; Z88.8 Allergy status to other drugs, medicaments and biological substances
CPT/HCPCS: 36415; 71046; 80053; 81001; 83605; 84484; 85025; 93005; 99285

== ENCOUNTER → 2022-05-07 | Outpatient (CLI) | payer MEDICARE, OTHER ==
--- NOTE | 2022-05-07 13:15 | US ---
EXAMINATION TYPE: US thyroid st tissue head/neck DATE OF EXAM: 05/07/2022 COMPARISON: NONE CLINICAL HISTORY: E03.9 HYPOTHYROIDISM, UNSPECIFIED. Tiredness GLAND SIZE: Right Lobe: 5.0 x 1.5 x 1.9 cm Overall Parenchyma: heterogenous Left Lobe: 4.6 x 1.5 x 1.6 cm Overall Parenchyma: heterogeneous Isthmus Thickness: 0.3 cm NODULES RIGHT: # of nodules measured on right: 0 LEFT: # of nodules measured on left: 0 ISTHMUS: # of nodules measured in the isthmus: 0 Bilateral neck scanned, no evidence of lymphadenopathy. IMPRESSION: 1. Unremarkable thyroid ultrasound
== END | disposition home or self-care (01) ==
LOC: RADUSWWP 10:03
PROVIDERS: ATTEND Family Medicine
DX: E03.9 Hypothyroidism, unspecified (principal)
CPT/HCPCS: 76536